=== PATIENT | male | born 1945 | race Caucasian/White ===

== ENCOUNTER → 2019-08-13 08:47 | Outpatient (BNVA) | payer MEDICARE, OTHER, SELFPAY | PROVIDERS: Family Provider Nurse Practitioner Family; PCP Family Medicine; Visit Provider Internal Medicine | DX: N18.3 Chronic kidney disease, stage 3 (moderate) (principal); D64.9 Anemia, unspecified; E79.0 Hyperuricemia without signs of inflammatory arthritis and tophaceous disease | CPT/HCPCS: 80048; 81003; 82310; 82728; 83540; 83550; 83735; 83970; 84100; 84550; 85018 ==

== ENCOUNTER → 2019-10-05 10:41 | Outpatient (BNVA) | payer MEDICARE, OTHER, SELFPAY | PROVIDERS: PCP Family Medicine; Visit Provider Family Medicine | DX: N52.9 Male erectile dysfunction, unspecified (principal); R41.3 Other amnesia | CPT/HCPCS: 82607; 84403; 84443 ==

== ENCOUNTER → 2019-10-13 13:26 | Outpatient (BNVA) | payer MEDICARE, OTHER, SELFPAY | PROVIDERS: PCP Family Medicine; Visit Provider Family Medicine | DX: E03.9 Hypothyroidism, unspecified (principal) | CPT/HCPCS: 84439; 84443 ==

== ENCOUNTER → 2020-03-16 12:14 | Outpatient (BNVA) | payer MEDICARE, OTHER, SELFPAY | PROVIDERS: PCP Family Medicine; Visit Provider Family Medicine | DX: E78.2 Mixed hyperlipidemia (principal); I10 Essential (primary) hypertension; F41.9 Anxiety disorder, unspecified | CPT/HCPCS: 80053; 80061 ==

== ENCOUNTER → 2020-03-29 08:00 | Outpatient (BNVA) | payer MEDICARE, OTHER, SELFPAY | PROVIDERS: PCP Family Medicine; Visit Provider Psychiatry & Neurology Neurology | DX: R41.3 Other amnesia (principal); G60.3 Idiopathic progressive neuropathy; I10 Essential (primary) hypertension; M54.2 Cervicalgia; Z79.899 Other long term (current) drug therapy | CPT/HCPCS: 80048; 80076; 82607; 82746; 83036; 84155; 84165; 84439; 84443 ==

== ENCOUNTER → 2020-06-06 08:59 | Outpatient (BNVA) | payer MEDICARE, OTHER, SELFPAY | PROVIDERS: PCP Family Medicine; Visit Provider Family Medicine | DX: I10 Essential (primary) hypertension (principal) | CPT/HCPCS: 80053; 80061; 85025 ==

== ENCOUNTER → 2020-08-16 11:12 | Outpatient (BNVA) | payer MEDICARE, OTHER, SELFPAY | PROVIDERS: PCP Family Medicine; Visit Provider Family Medicine | DX: E78.2 Mixed hyperlipidemia (principal); N18.30 Chronic kidney disease, stage 3 unspecified; D63.1 Anemia in chronic kidney disease; I12.9 Hypertensive chronic kidney disease with stage 1 through stage 4 chronic kidney disease, or unspecified chronic kidney disease | CPT/HCPCS: 80053; 80061; 81000; 82310; 82728; 83550; 83735; 83970; 84100; 84550; 85025 ==

== ENCOUNTER → 2020-11-17 09:56 | Outpatient (BNVA) | payer MEDICARE, OTHER, SELFPAY | PROVIDERS: PCP Family Medicine; Visit Provider Nurse Practitioner Family | DX: R05 Cough (principal); J43.9 Emphysema, unspecified | CPT/HCPCS: 71046; 80053; 85025 ==

== ENCOUNTER 2020-11-24 12:52 | Outpatient (CLI) | payer MEDICARE, OTHER, SELFPAY ==
[2020-11-24] MEDS: iodixanol 320 mg/mL 100mL Btl IV (13:21)
--- NOTE | 2020-11-24 13:30 | CT_ITS ---
WS: [id number] CT scan of the chest with IV contrast, additional two-dimensional coronal and sagittal reconstruction was performed. 11/24/2020 Clinical Data: R05 - Cough Comparison: Portable chest, 02/21/2016 DLP: 926.[address] scans at [facility] use at least one of these dose optimization techniques: automat ed exposure control; mA and/or kV adjustment per patient size (includes targeted exams where dose is matched to clinical indication); or iterative reconstruction. Findings: No nodules, masses or effusions are seen. The heart size is normal with no pericardial effusion. No p neumonia or pneumothorax is present. There is coronary artery calcification. The pulmonary arterial s ystem and thoracic aorta demonstrate no dilatations. There is minimal calcification in the wall of th e thoracic aorta. There is no axillary or significant mediastinal adenopathy. The thyroid gland shows normal enhancement. Midline sternotomy sutures are present. The upper abdomen demonstrates no abnormalities. The bones of the thorax are not remarkable. CT/CT chest w con* [id number] Impression: Negative CT scan of the chest with IV contrast.
== END 2020-11-24 12:53 | disposition home or self-care (01) ==
PROVIDERS: PCP Family Medicine; Visit Provider Nurse Practitioner Family
DX: R05 Cough (principal)
CPT/HCPCS: 71260; Q9967

== ENCOUNTER → 2020-12-22 11:59 | Outpatient (BNVA) | payer MEDICARE, OTHER, SELFPAY | PROVIDERS: PCP Family Medicine; Visit Provider Internal Medicine Critical Care Medicine | DX: J44.9 Chronic obstructive pulmonary disease, unspecified (principal); Z20.822 Contact with and (suspected) exposure to COVID-19 | CPT/HCPCS: 87635 ==

== ENCOUNTER 2020-12-27 09:17 | Outpatient (CLI) | payer MEDICARE, OTHER, SELFPAY ==
--- NOTE | 2020-12-27 12:59 | PFTS_ITS ---
Date of Study:12/27/20 Date of Dictation: MECHANICS: Forced vital capacity (FVC) is mildly reduced. Forced expiratory volume in one second (FEV1) is normal. FEV1/FVC is . FLOW VOLUME LOOP: Mild scooping. LUNG VOLUMES: Total lung capacity (TLC) is normal. Residual volume (RV) is increased. DIFFUSING CAPACITY FOR CARBON MONOXIDE: Moderately reduced. INTERPRETATION: The pulmonary function test is consistent with nonspecific ventilatory limitation. The postbronchodilator spirometry is consistent with minimal restriction. However, the total lung capacity is normal. The residual volume is elevated. The flow volume loop reveals mild scooping. The patient likely has small airways disease. Gas exchange (DLCO) is moderately reduced. MTDD
== END 2020-12-27 09:18 | disposition home or self-care (01) ==
LOC: RT 09:19
PROVIDERS: PCP Family Medicine; Visit Provider Internal Medicine Pulmonary Disease
DX: J44.9 Chronic obstructive pulmonary disease, unspecified (principal)
CPT/HCPCS: J7611

== ENCOUNTER → 2021-02-19 11:09 | Outpatient (BNVA) | payer MEDICARE, OTHER, SELFPAY | PROVIDERS: PCP Family Medicine; Visit Provider Internal Medicine | DX: N18.30 Chronic kidney disease, stage 3 unspecified (principal); D64.9 Anemia, unspecified; E79.0 Hyperuricemia without signs of inflammatory arthritis and tophaceous disease; I10 Essential (primary) hypertension; E78.2 Mixed hyperlipidemia | CPT/HCPCS: 80048; 81000; 82040; 82310; 82728; 83550; 83735; 83970; 84100; 84550; 85018 ==

== ENCOUNTER → 2021-05-21 12:27 | Outpatient (BNVA) | payer MEDICARE, OTHER, SELFPAY | PROVIDERS: PCP Family Medicine; Visit Provider Family Medicine | DX: J44.9 Chronic obstructive pulmonary disease, unspecified (principal); E55.9 Vitamin D deficiency, unspecified; E78.2 Mixed hyperlipidemia; G47.00 Insomnia, unspecified; I10 Essential (primary) hypertension | CPT/HCPCS: 80053; 80061; 82306; 84443; 85025 ==

== ENCOUNTER → 2021-05-28 09:40 | Outpatient (BNVA) | payer MEDICARE, OTHER, SELFPAY | PROVIDERS: PCP Family Medicine; Visit Provider Family Medicine | DX: R79.89 Other specified abnormal findings of blood chemistry (principal) | CPT/HCPCS: 84439; 84443; 84481 ==

== ENCOUNTER → 2021-06-21 14:48 | Outpatient (BNVA) | payer MEDICARE, OTHER, SELFPAY | PROVIDERS: PCP Family Medicine; Visit Provider Nurse Practitioner Family | DX: N30.10 Interstitial cystitis (chronic) without hematuria (principal) | CPT/HCPCS: 81003 ==

== ENCOUNTER 2021-07-16 15:37 | Inpatient (IN) | payer MEDICARE, OTHER, SELFPAY ==
[2021-07-16 15:39] VITALS: BP 128/98; PULSE 69; RESP 18; TEMP 38.7; O2SAT 95; BMI 28.3
--- NOTE | 2021-07-16 15:43 | XR_ITS ---
WS: [id number] Exam: XR chest 1V portable [id number] Date/Time of Exam: 07/16/2021 3:51 PM Reason For Exam: dyspnea Comparison 11/17/2020. The lungs are clear and fully expanded. Normal cardiomediastinal structures. Signs of previous CABG s urgery. Bony elements are intact. Extensive vascular calcifications in the right neck. XR/XR chest 1V portable [id number] IMPRESSION: 1. No acute cardiopulmonary finding.
--- NOTE | 2021-07-16 15:43 | ECG_ITS ---
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 Measurements Intervals [place] Rate: 67 P: 73 NV: 238 QRS: 91 QRSD: 116 T: -2 QT: 366 QTc: 388 Interpretive Statements SINUS RHYTHM WITH FIRST DEGREE AV BLOCK BORDERLINE RIGHT AXIS DEVIATION [QRS AXIS > 90] MODERATE INTRAVENTRICULAR CONDUCTION DELAY [110+ ms QRS DURATION] NONSPECIFIC T-WAVE ABNORMALITY Compared to ECG 03/27/2018 11:36:41 First degree AV block now present T-wave abnormality still present Electronically Signed On 07-16-2021 16:57:44 SET UP / OPERATOR by Mandeep Beal M.D. [email or web address] [email or web address] lake [email or web address]/store/[id number]
[2021-07-16] MEDS: sodium chloride 0.9% 500 ML IV (16:12)
[2021-07-16] MEDS: acetaminophen 500 mg Tablet 1000 MG PO (16:12)
--- NOTE | 2021-07-16 16:18 | PC.PHAR ---
PTS VERIFIED PTS MEDICATIONS
[2021-07-16 16:22] LABS: Basophils % 0.2 %; Eosinophils % 0.2 %; Hematocrit 31.4 % (42.0-52.0); Hemoglobin 10.8 g/dL (11.7-16.6); Lymphocytes # 1.5 10^3/uL (0.8-4.8); Lymphocytes % 15.9 %; Mean Corpuscular HGB Conc 34.4 g/dL (30.0-36.0); Mean Corpuscular Volume 98.7 fl (80-94); Mean Platelet Volume 10.6 fL (7.4-10.4); Monocytes # 1.8 10^3/uL (0.2-0.9); Neutrophils # 6.25 10^3/uL (1.8-7.7); Neutrophils % 64.4 %; Nucleated Red Blood Cells % 0 %; Platelet Count 182 10^3/cmm (130-400); Red Blood Count 3.18 10^6/uL (4.1-5.3); Red Cell Distribution Width 12.5 % (12.1-15.1); White Blood Count 9.7 10^3/uL (4.0-10.0)
[2021-07-16 16:51] LABS: Influenza A by IFA Negative (Negative); Influenza B by IFA Negative (Negative); SARS Covid-2 Antigen Negative (Negative)
[2021-07-16 16:51] LABS: Slide Review Slide Review Perform
--- NOTE | 2021-07-16 16:51 | ED_ITS ---
HPI - General Adult General: Chief complaint: Chest Pain Stated complaint: SOB Time Seen by Provider: 07/16/21 15:43 History of Present Illness: HPI narrative: Patient is a 75-year-old male with a history of CABG, BPH with LUTS, hypertension, hyperlipidemia who presents the emergency room for evaluation of back pain radiating towards the chest x1 day. Patient tells me that since , she has been having hacking cough, shortness of breath, and generalized body ache and malaise. Patient says that she has no abdominal pain, nausea vomiting, diaphoresis, exertional chest pain or shortness of breath. Earlier today, around 8 AM, patient has noticed back pain that radiates towards the chest and is concerned that he may be having heart attack. Patient went to the clinic for an evaluation was told to go to the emergency room because of fever. Patient was brought in by EMS. On arrival, patient reports that he is up-to-date with his Covid vaccines and has had his booster. Patient also reports that he has had the flu shot this year. Denies any diarrhea, melena hematochezia. No urinary complaints at this time. Onset:4 days ago Duration:ongoing Location:home Severity:moderate Review of Systems Narrative: Constitutional:+fever, no chills. +generalized weakness HEENT: No vision changes CV: +chest pain, no palpitations PULM: +cough, +dyspnea. GI: No abdominal pain, no N/V/D. : No dysuria MSKEL: No muscle pain SKIN: No new rashes, no lesions. NEURO: No headache, no focal weakness. HEME: No visible bruises PSYCH: Normal mood BACK: +back pain [facility] ED PFSH: Medical History (Updated 07/17/21 @ 08:47 by Fe Womack MD) Anxiety BPH w urinary obs/LUTS Chronic renal disease, stage 3, moderately decreased glomerular filtration rate (GFR) between 30-59 mL/min/1.73 square meter Chronic ulcerating interstitial cystitis COPD (chronic obstructive pulmonary disease) Coronary artery disease involving autologous vein coronary bypass graft without angina pectoris COVID-19 vaccine administered 2 doses plus booster Depression Erectile dysfunction Ex-smoker Gastro-esophageal reflux disease with esophagitis Glaucoma Hyperlipemia, mixed Hypertension Idiopathic progressive neuropathy Left carotid bruit Memory loss Myocardial infarct, old Obstructive sleep apnea Osteoarthritis Raynaud's disease Surgical History H/O vasectomy S/P angioplasty S/P coronary artery bypass graft x 2 S/P cystoscopy Family History Mother CAD (coronary artery disease) Father CAD (coronary artery disease) Sister CAD (coronary artery disease) Family/Other Hypertension Social History (Updated 07/16/21 @ 21:47 by Fe Womack MD) Smoking and tobacco status: former smoker Quit status (tobacco): has quit using tobacco Year quit tobacco: 1988 [id number] Second hand smoke exposure: No Alcohol intake: never Substance/Drug Use: never Lives independently: Yes Household members: spouse Housing: House Marital status: service: No Current occupational status: retired Pets and animals: No History of recent travel: No Current gender identity: Male Special evelyn needs: No Physical Exam Narrative: EXAM NARRATIVE: Head: Atraumatic Eyes: PERRL, conjunctiva without injection ENT: Mucous membrane moist NECK: Supple, ROM intact LUNGS: LCTAB, no crackles/rhonchi CV: RRR ABDOMEN: Soft, no focal TTP. NO guarding rebound, guarding, rigidity. No CVA tenderness to percussion. Neg Rouse/Neg McBurney's point tenderness, no suprabupic tenderness to palpation. EXTREMITY: Normal ROM SKIN: No rash or erythema NEURO: Awake and alert, no focal motor deficits PSYCH: Normal mood and affect Course Vital Signs: Vital signs: Vital Signs Temperature 102.8 F H 07/17/21 04:50 Pulse Rate 75 07/17/21 11:16 Respiratory Rate 18 07/17/21 11:16 Blood Pressure 140/60 07/17/21 03:06 Pulse Oximetry 93 07/17/21 11:16 MDM - General Adult MDM Narrative: Medical decision making narrative: Patient is a 75-year-old male with a history of CABG, hypertension, hyperlipidemia, BPH with LUTS presenting to the emergency room for evaluation of cough, shortness of breath, malaise, fever since 4 days ago. Exam, patient is noted to be febrile to 101.3 degrees. No focal lung findings. No signs of hypoxemia. Hemoglobin 10.8 today. X-ray not showing signs of any focal findings. Serial EKGs started to show MAYCO in 2/3/aVF with reciprocal depression in aVL Given significant EKG changes, ongoing chest pain, and troponin elevation - a STEMI alert was called at 6:34pm Case was emergently discussed with Dr. 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 Lab Data: Labs: Lab Results 07/16/21 07/16/21 07/16/21 15:45 15:45 16:09 WBC 9.7 10^3/uL 10^3/ uL (4.0-10.0) RBC 3.18 10^6/uL L 10 ^6/uL (4.1-5.3) Hgb 10.8 g/dL L g/dL (11.7-16.6) Hct 31.4 % L % (42.0-52.0) MCV 98.7 fl H fl (80-94) MCH 34.0 pg pg (28.0-34.0) MCHC 34.4 g/dL g/dL (30.0-36.0) RDW 12.5 % % (12.1-15.1) Plt Count 182 10^3/cmm 10^3 /cmm (130-400) MPV 10.6 fL H fL (7.4-10.4) Neut % (Auto) 64.4 % % Lymph % (Auto) 15.9 % % [place] % (Auto) 19.0 % % Eos % (Auto) 0.2 % % Baso % (Auto) 0.2 % % Neut # (Auto) 6.25 10^3/uL 10^3 /uL (1.8-7.7) Lymph # (Auto) 1.5 10^3/uL 10^3/ uL (0.8-4.8) [place] # (Auto) 1.8 10^3/uL H 10^ 3/uL (0.2-0.9) Eos # (Auto) 0.0 10^3/uL 10^3/ uL (0.0-0.8) Baso # (Auto) 0.0 10^3/uL 10^3/ uL (0.0-0.1) Nucleated RBC % (a uto) 0 % % Nucleated RBCs # 0.0 /100WBC /100W BC APTT Sodium Potassium Chloride Carbon Dioxide Anion Gap BUN Creatinine GFR Calculation Glucose Calculated Osmolal ity Calcium Troponin T Baselin e Troponin T 120 Min [place] Delta Troponin T NT-Pro-B Natriuret Pep Influenza Type A A g Negative (Negative) Influenza Type B A g Negative (Negative) SARS-CoV-2 Ag (Rap id) Negative (Negative) 07/16/21 07/16/21 07/16/21 16:09 16:09 16:09 WBC RBC Hgb Hct MCV MCH MCHC RDW Plt Count MPV Neut % (Auto) Lymph % (Auto) [place] % (Auto) Eos % (Auto) Baso % (Auto) Neut # (Auto) Lymph # (Auto) [place] # (Auto) Eos # (Auto) Baso # (Auto) Nucleated RBC % (a uto) Nucleated RBCs # APTT 26.0 SECONDS SECO NDS (23.9-36.7) Sodium 131 mmol/L L mmol /L (136-145) Potassium 4.7 mmol/L mmol/L (3.5-5.1) Chloride 96 mmol/L L mmol/ L (98-107) Carbon Dioxide 20 mmol/L L mmol/ L (22-29) Anion Gap 19.7 H (5-19) BUN 23 mg/dL mg/dL (8-23) Creatinine 1.5 mg/dL H mg/dL (0.7-1.2) GFR Calculation Not Reportable Glucose 93 mg/dL mg/dL (65-115) Calculated Osmolal ity 275 mOsm/kg L mOs m/kg (285-295) Calcium 7.8 mg/dL L mg/dL (8.5-10.5) Troponin T Baselin e 2698 ng/L H* ng/L (0-15) Troponin T 120 Min [place] Delta Troponin T NT-Pro-B Natriuret Pep 1548 pg/mL H pg/m L (0-450) Influenza Type A A g Influenza Type B A g SARS-CoV-2 Ag (Rap id) 07/16/21 17:58 WBC RBC Hgb Hct MCV MCH MCHC RDW Plt Count MPV Neut % (Auto) Lymph % (Auto) [place] % (Auto) Eos % (Auto) Baso % (Auto) Neut # (Auto) Lymph # (Auto) [place] # (Auto) Eos # (Auto) Baso # (Auto) Nucleated RBC % (a uto) Nucleated RBCs # APTT Sodium Potassium Chloride Carbon Dioxide Anion Gap BUN Creatinine GFR Calculation Glucose Calculated Osmolal ity Calcium Troponin T Baselin e Troponin T 120 Min [place] 2596 ng/L H ng/L (0-15) Delta Troponin T -102 ABS# L ABS# (0-10) NT-Pro-B Natriuret Pep Influenza Type A A g Influenza Type B A g SARS-CoV-2 Ag (Rap id) Imaging Data^: Other Imaging: Radiologist's impression: [address] [id number] ReportSigned Patient: Chris Thompson #: [id number]: 5Acct#:[id number]/Sex: 75 / MADM Date: 07/16/21Loc: ERRoom/Bed:Attending Dr: Ordering Provider/Ordering MD: Ria Guardado MD Date of Service: 07/16/21 Procedure(s): XR chest 1V portable [id number] Accession Number(s): [id number] Report Number: [id number] WS: [id number] Exam: XR chest 1V portable [id number] Date/Time of Exam: 07/16/2021 3:51 PM Reason For Exam: dyspnea Comparison 11/17/2020. The lungs are clear and fully expanded. Normal cardiomediastinal structures. Signs of previous CABG surgery. Bony elements are intact. Extensive vascular calcifications in the right neck. XR/XR chest 1V portable [id number] IMPRESSION: 1. No acute cardiopulmonary finding. Dictated By:Donnellyigned By:Mariah Javed Date/Time:07/16/21 1604DD/ 1603 Discharge Plan Discharge Patient Disposition: Admitted As Inpatient Admit Provider: Brittni Lopez Clinical Impression: Cough, Dyspnea, Anemia, ST elevation (STEMI) myocardial infarction Fever Qualifiers: Fever type: unspecified Qualified Code(s): R50.9 - Fever, unspecified Condition: Stable Coding Level of Care Code ED Medical Insurance Claims Specialist for Judson Da Silva
[2021-07-16 17:01] LABS: Blood Urea Nitrogen 23 mg/dL (8-23); Calcium 7.8 mg/dL (8.5-10.5); Carbon Dioxide 20 mmol/L (22-29); Chloride 96 mmol/L (98-107); Glucose 93 mg/dL (65-115); NT Pro B Type Natriuretic Pept 1548 pg/mL (0-450); Osmolality Calculated 275 mOsm/kg (285-295); Sodium 131 mmol/L (136-145)
[2021-07-16 17:05] LABS: Anion Gap 19.7 (5-19); Potassium 4.7 mmol/L (3.5-5.1)
[2021-07-16 17:07] LABS: Troponin(5th) Baseline 2698 ng/L (0-15)
[2021-07-16] MEDS: aspirin 325 mg Tablet PO (17:20)
[2021-07-16] MEDS: heparin 5,000 unit/mL INJ 1 mL 4000 UNIT IVP (17:21)
[2021-07-16] MEDS: heparin drip 25,000 UNIT/500 ML PREMIX 24.39 UNIT IV (17:27)
[2021-07-16 17:35] VITALS: BP 115/65; PULSE 63; RESP 17; TEMP 37.9; O2SAT 95
--- NOTE | 2021-07-16 17:43 | ECG_ITS ---
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1945 Requested By: Ria Guardado Order Number: [id number] Reading MD: MARTHA SELF Measurements Intervals [place] Rate: 58 P: 55 WI: 267 QRS: 57 QRSD: 117 T: 46 QT: 399 QTc: 394 Interpretive Statements SINUS BRADYCARDIA WITH FIRST DEGREE AV BLOCK LEFT VENTRICULAR HYPERTROPHY AND ST-T CHANGE [VOLTAGE CRITERIA PLUS ST/T ABNORMALITY] POSSIBLE SEPTAL MYOCARDIAL INFARCTION , PROBABLY OLD [30 ms Q WAVE IN V1/V2] Compared to ECG 07/16/2021 15:49:51 Left ventricular hypertrophy now present ST (T wave) deviation now present Myocardial infarct finding now present Sinus rhythm no longer present Intraventricular conduction delay no longer present T-wave abnormality no longer present Electronically Signed On 07-17-2021 20:12:26 PROTOCOL MANAGER by MARTHA SELF [id number]
--- NOTE | 2021-07-16 17:50 | PM.HP ---
Providers/Chief Complaint Primary Care Provider: Luzmaria Andrea MD Chief Complaint: SOB History of Present Illness Chris Thompson is a 75 year old male Medications/Allergies Home Medications Medication Instructions Recorded Confirmed Last Taken Type ketoconazole 2 % topical cream 1 applic TOPICAL PRN 08/06/19 07/16/21 Unknown History albuterol sulfate 90 mcg/actuation 2 puff INHALATION Q6H PRN #8.5 g 05/21/21 07/16/21 Unknown Rx aerosol inhaler amlodipine 5 mg tablet 5 mg PO BID #180 tab 05/21/21 07/16/21 07/16/21 09:00 Rx furosemide 20 mg tablet 10 mg PO QAM #45 tab 05/21/21 07/16/21 07/16/21 Rx isosorbide mononitrate 30 mg 30 mg PO BID #180 tab 05/21/21 07/16/21 07/16/21 09:00 Rx tablet,extended release 24 hr Adult Low Dose Aspirin 81 mg PO QAM 07/16/21 07/16/21 07/16/21 History Allergy Relief (fluticasone) 2 spray INTRANASAL QAM 07/16/21 07/16/21 07/16/21 History Miralax 17 g PO QAM 07/16/21 07/16/21 07/16/21 History Prevacid 30 mg PO QPM 07/16/21 07/16/21 07/15/21 History Zyrtec 10 mg PO QAM 07/16/21 07/16/21 07/16/21 History cholecalciferol (vitamin D3) 1,000 unit PO QAM 07/16/21 07/16/21 07/16/21 History clonazepam 1 mg PO DAILY 07/16/21 07/16/21 Unknown History clopidogrel 75 mg PO QAM 07/16/21 07/16/21 07/16/21 History donepezil 10 mg PO QPM 07/16/21 07/16/21 07/15/21 History finasteride 5 mg PO QPM 07/16/21 07/16/21 07/15/21 History losartan 25 mg PO QAM 07/16/21 07/16/21 07/16/21 09:00 History magnesium 250 mg PO DAILY 07/16/21 07/16/21 Unknown History mecobalamin (vitamin B12) 1,000 mcg SUBLINGUAL QAM 07/16/21 07/16/21 07/16/21 History montelukast 10 mg PO QAM 07/16/21 07/16/21 07/16/21 History potassium gluconate 595 mg PO QAM 07/16/21 07/16/21 07/16/21 History rosuvastatin 10 mg PO QPM 07/16/21 07/16/21 07/15/21 History trazodone 150 mg PO BEDTIME 07/16/21 07/16/21 07/15/21 History Allergies Allergy/AdvReac Type Severity Reaction Status Date / Time No Known Allergies Allergy Verified 07/16/21 16:05 PFSH Acute PFSH: Medical History (Updated 07/16/21 @ 17:23 by Ria Guardado MD) Anxiety BPH w urinary obs/LUTS Chronic renal disease, stage 3, moderately decreased glomerular filtration rate (GFR) between 30-59 mL/min/1.73 square meter Chronic ulcerating interstitial cystitis Coronary artery disease involving autologous vein coronary bypass graft without angina pectoris Depression Erectile dysfunction Gastro-esophageal reflux disease with esophagitis Glaucoma Hyperlipemia, mixed Hypertension Idiopathic progressive neuropathy Left carotid bruit Memory loss Myocardial infarct, old Obstructive sleep apnea Osteoarthritis Raynaud's disease Surgical History H/O vasectomy S/P angioplasty S/P coronary artery bypass graft x 2 S/P cystoscopy Family History Mother CAD (coronary artery disease) Father CAD (coronary artery disease) Sister CAD (coronary artery disease) Family/Other Hypertension Social History Smoking and tobacco status: former smoker Quit status (tobacco): has quit using tobacco Year quit tobacco: 1988 [id number] Second hand smoke exposure: No Smoking risk assessment/counseling performed?: Yes Alcohol intake: never Lives independently: Yes Household members: spouse Housing: House Marital status: service: No Current occupational status: retired Pets and animals: No History of recent travel: No Current gender identity: Male Special evelyn needs: No Vitals/I&O/Wt Last Vital Signs Temp 100.2 F H 07/16/21 17:35 Pulse 63 07/16/21 17:35 Resp 17 07/16/21 17:35 BP 115/65 07/16/21 17:35 Pulse Ox 95 07/16/21 17:35 Weight last 48 hrs Weight 87.09 kg Data : 07/16/21 16:09 07/16/21 16:09 Coding Level of Care Code Acute Crop Supervisor for Judson Da Silva
--- NOTE | 2021-07-16 18:38 | P.CONIM_ITS ---
Providers/Reason For Consult Consulting Physician/Specialty*: Cardiology Reason for Consult*: Non-ST elevation MO Primary Care Provider: Luzmaria Andrea MD History of Present Illness History of Present Illness 69-year-old male presented with chest pain and non-ST elevation MO, his past medical history (RM to LAD, SVG to RCA ) 1998 this is as per patient no record available to me followed by multiple intervention none none vessels no record available to us since patient follows up with Dr. Siddiqui at outside hospital. According the patient for the past few days he was having cough at the same time he felt to be feverish however since this morning he was having off-and-on back pain and sometimes chest pain when pain became more consistent he decided to come to the ER. Multiple EKGs were performed third EKG was suggestive of mild ST elevation not completely meet the criteria for ST elevation MO was noted. Troponin was noted to be around 2000. Patient was taken to the [facility] due to recurrent chest pain and dynamic EKG changes. He was noted to have patent circumflex 50% distal left main and RM to LAD was patent SVG to RCA which most likely is a culprit is diffusely diseased atretic and occluded in the proximal segment, no SVG to circumflex visualized. Medical management was suggested. Currently patient is chest pain-free. Rapid Covid was negative. Review of Systems Const: Reports: fever(s), chills, body aches, fatigue and malaise; Denies: change in weight Eyes: Denies: change in vision ENMT: Reports: nasal congestion and other (No loss of taste or smell); Denies: throat pain Card: Reports: chest pain and dyspnea on exertion; Denies: palpitations or edema Resp: Reports: dyspnea, productive cough, non-productive cough and wheezing; Denies: pain on inspiration or hemoptysis GI: Denies: abdominal pain, nausea, vomiting, diarrhea, constipation, hematochezia or melena : Denies: hematuria Musc: Reports: back pain (chest pain radiates into back) and muscle weakness; Denies: neck pain, joint swelling or joint redness Skin/Breast: Denies: rash, pruritus or sores Neuro: Reports: difficulty walking (due to general weakness, not focal weakness) and confusion; Denies: headache(s) or numbness in extremities Psych: Reports: anxiety and memory loss; Denies: depression Mickey/Lymph: Denies: easy bruising or easy bleeding Meds/Allergies Home Medications and Allergies Home Medications Medication Instructions Recorded Confirmed Last Taken Type ketoconazole 2 % topical cream 1 applic TOPICAL PRN 08/06/19 07/16/21 Unknown History albuterol sulfate 90 mcg/actuation 2 puff INHALATION Q6H PRN #8.5 g 05/21/21 07/16/21 Unknown Rx aerosol inhaler amlodipine 5 mg tablet 5 mg PO BID #180 tab 05/21/21 07/16/21 07/16/21 09:00 Rx furosemide 20 mg tablet 10 mg PO QAM #45 tab 05/21/21 07/16/21 07/16/21 Rx isosorbide mononitrate 30 mg 30 mg PO BID #180 tab 05/21/21 07/16/21 07/16/21 09:00 Rx tablet,extended release 24 hr Adult Low Dose Aspirin 81 mg PO QAM 07/16/21 07/16/21 07/16/21 History Allergy Relief (fluticasone) 2 spray INTRANASAL QAM 07/16/21 07/16/21 07/16/21 History Miralax 17 g PO QAM 07/16/21 07/16/21 07/16/21 History Prevacid 30 mg PO QPM 07/16/21 07/16/21 07/15/21 History Zyrtec 10 mg PO QAM 07/16/21 07/16/21 07/16/21 History cholecalciferol (vitamin D3) 1,000 unit PO QAM 07/16/21 07/16/21 07/16/21 History clonazepam 1 mg PO DAILY 07/16/21 07/16/21 Unknown History clopidogrel 75 mg PO QAM 07/16/21 07/16/21 07/16/21 History donepezil 10 mg PO QPM 07/16/21 07/16/21 07/15/21 History finasteride 5 mg PO QPM 07/16/21 07/16/21 07/15/21 History losartan 25 mg PO QAM 07/16/21 07/16/21 07/16/21 09:00 History magnesium 250 mg PO DAILY 07/16/21 07/16/21 Unknown History mecobalamin (vitamin B12) 1,000 mcg SUBLINGUAL QAM 07/16/21 07/16/21 07/16/21 History montelukast 10 mg PO QAM 07/16/21 07/16/21 07/16/21 History potassium gluconate 595 mg PO QAM 07/16/21 07/16/21 07/16/21 History rosuvastatin 10 mg PO QPM 07/16/21 07/16/21 07/15/21 History trazodone 150 mg PO BEDTIME 07/16/21 07/16/21 07/15/21 History Allergies Allergy/AdvReac Type Severity Reaction Status Date / Time No Known Allergies Allergy Verified 07/16/21 16:05 Current Medications Current Medications Generic Name Dose Route Start Last Admin Trade Name Freq PRN Reason Stop Dose Admin Heparin Sodium/Sodium Chloride 25,000 unit in 500 mls @ 0 mls/hr 07/16/21 17:15 07/16/21 17:27 Heparin Drip IV 14 unit/kg/hr .Q0M ROSEMARY 24.39 mls/hr Administration Protocol Per Protocol Additional Medication Information I personally reviewed home medication list and medications received day of admission thus far. PFSH Acute PFSH: Medical History (Updated 07/17/21 @ 08:47 by Fe Womack MD) Anxiety BPH w urinary obs/LUTS Chronic renal disease, stage 3, moderately decreased glomerular filtration rate (GFR) between 30-59 mL/min/1.73 square meter Chronic ulcerating interstitial cystitis COPD (chronic obstructive pulmonary disease) Coronary artery disease involving autologous vein coronary bypass graft without angina pectoris COVID-19 vaccine administered 2 doses plus booster Depression Erectile dysfunction Ex-smoker Gastro-esophageal reflux disease with esophagitis Glaucoma Hyperlipemia, mixed Hypertension Idiopathic progressive neuropathy Left carotid bruit Memory loss Myocardial infarct, old Obstructive sleep apnea Osteoarthritis Raynaud's disease Surgical History H/O vasectomy S/P angioplasty S/P coronary artery bypass graft x 2 S/P cystoscopy Family History Mother CAD (coronary artery disease) Father CAD (coronary artery disease) Sister CAD (coronary artery disease) Family/Other Hypertension Social History (Updated 07/16/21 @ 21:47 by Fe Womack MD) Smoking and tobacco status: former smoker Quit status (tobacco): has quit using tobacco Year quit tobacco: 1988 1ppdx 45yrs Second hand smoke exposure: No Alcohol intake: never Substance/Drug Use: never Lives independently: Yes Household members: spouse Housing: House Marital status: service: No Current occupational status: retired Pets and animals: No History of recent travel: No Current gender identity: Male Special evelyn needs: No Dietary Habits: Current diet type/program: regular Caffeine: Yes Vitals/I&O/Wt Last Vital Signs Temp 100.2 F H 07/16/21 17:35 Pulse 63 07/16/21 17:35 Resp 17 07/16/21 17:35 BP 115/65 07/16/21 17:35 Pulse Ox 95 07/16/21 17:35 Weight last 48 hrs Weight 192 lb Physical Exam Narrative: EXAM NARRATIVE: GENERAL: Patient is alert, awake and oriented x3. NECK: No jugular vein distension. HEENT: No cyanosis. No icterus. No pallor. HEART: Regular S1 and S2. No murmur, rub or gallop. LUNGS: Clear to auscultate bilaterally. ABDOMEN: Soft, nontender and nondistended. Positive bowel sounds. No guarding, rebound or tenderness. CENTRAL NERVOUS SYSTEM: Grossly nonfocal. EXTREMITIES: Lower extremities without edema bilaterally. A&P Assessment and plan (1) Acute coronary syndrome: Patient presenting with acute coronary syndrome most likely unstable non- ST elevation MO he has recurrent chest pain with mild dynamic ST changes we would therefore proceed with left heart cath and intervention if indicated. Patient has been loaded with Plavix aspirin. Further plan will advise as per progress of the patient Status: Acute (2) Fever: could be respiratory tract infection, treatment as per medicine Status: Acute Qualifiers: Fever type: unspecified Qualified Code(s): R50.9 - Fever, unspecified (3) Chronic kidney disease (CKD) stage G3a/A1, moderately decreased glomerular filtration rate (GFR) between 45-59 mL/min/1.73 square meter and albuminuria creatinine ratio less than 30 mg/g: Patient has been explained risk for contrast-induced nephropathy, plan to continue IV fluid Status: Chronic Consult Attestations Medical Necessity Statement: Expecting his stay to cross more than 2 midnight Coding Level of Care Code New Pt Acute Account Representative for g Fwd Patient Type New History Detailed Exam Detailed Medical Decision Making Moderate Complexity Diagnoses Acute coronary syndrome I24.9 Fever R50.9 Fever type: unspecified Chronic kidney disease (CKD) stage G3a/A1, moderately decreased glomerular filtration rate (GFR) between 45-59 mL/min/1.73 square meter and albuminuria creatinine ratio less than 30 mg/g N18.31
[2021-07-16 18:41] LABS: Troponin 5 2HR 2596 ng/L (0-15); Troponin 5 2HR Delta -102 ABS# (0-10)
[2021-07-16 18:51] VITALS: BP 104/62; PULSE 60; RESP 18; O2SAT 94
--- NOTE | 2021-07-16 19:01 | XACV_ITS ---
Ht: 178 cm Wt: 87 kg BSA: 2.09 m2 Gender: Male : 1945 Any Known Allergies: No known allergies Exam Priority: Routine Indication(s): - Acute inferior TN Procedure(s): Procedure Description: Diagnostic procedure Procedure Description: Miscellaneous Procedure Description: Perclose Procedure Description: Coronary Angiography John DAWSON; Diagnostic Cath Status: Emergency Diagnostic Findings * Left Main has no disease. * Proximal Left Anterior Descending to Mid Left Anterior Descending: total occlusion, MARIBEL: 0 flow. * Left Internal Mammary Artery to Mid Left Anterior Descending graft: patent. * Proximal Right Coronary Artery to Distal Right Coronary Artery: total occlusion, MARIBEL: 0 flow. * Proximal Circumflex: moderate 50% stenosis, MARIBEL: 3 flow. * Ascending Aorta to Right Posterior AV graft: total occlusion, MARIBEL: 0 flow. * Two grafts visualized. * Coronary angiography shows right dominance. Conclusions 1. Patient presented with non-ST elevation TN he was noted to have occluded SVG to RCA which is the culprit. He has chronically occluded LAD which is supplied by patent RM. No SVG to circumflex was found. No prior report surgical or cath available to us. Since there was no markers and we were not able to find SVG to circumflex it was thought patient only had 2 graft. Medical management was advised since [place] vessel is highly calcified chronically occluded RCA not amenable to intervention.. 2. There is total occlusion coronary artery disease with three vessel disease. 3. Two coronary grafts visualized: one graft patent, and one graft occluded. Recommendations * Continue current medical management and risk factor modification. Interventional RX Recommendation: medical therapy and/or counseling Diagnostic RX Recommendation: medical therapy and/or counseling Clinical Evaluation EBL: 5mL-10mL Procedural Details Pre-Procedure Time Out. Identified patient by full name and date of as verbalized by the patient/guarantor. Does the consent match the physician's order: N/A Emergent; Informed Consent not obtained due to time critical life threat. Accurate & Complete Informed Consent: N/A Emergent; Informed Consent not obtained due to time critical life threat. Inpatient/Outpatient History & Physical on Chart: N/A Emergent; Informed Consent not obtained due to time critical life threat. If H&P is completed, is and addenduem needed: N/A Emergent; Informed Consent not obtained due to time critical life threat; If yes, is the addendum complete: N/A Emergent; Informed Consent not obtained due to time critical life threat. Visualize and Verify Site with Patient/Guarantor: N/A. Relevant Radiology Images available: N/A Emergent; Informed Consent not obtained due to time critical life threat. Pre-op teaching completed and patient verbalized understanding. The risks, benefits, and alternatives of sedation and/or procedure were discussed by physician. The patient agrees to continue. Procedure started. [facility] Clinical Fraility Score: 4: Vulnerable. 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 Chest Pain Symptom Assessment: Typical Angina Symptoms. Cardiovascular Instability: No. Stable. Correct patient, site and procedure confirmed by cath team. Current diagnosis: STEMI. PERRLA. 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 Lungs clear x 5 lobes. IV Site on Arrival: 20 gauge in the right hand. Pre Procedural Pulses: bilateral radial was 3+. Pre Procedural Pulses: bilateral posterior tibial was 3+. Pre Procedural Pulses: bilateral posterior tibial was 3+. Oxygen started at 3liters/min via nasal canula. bilateral groins was prepped with chloroprep then draped in the usual sterile fashion. Baseline sample Acquired. HR: 57 BPM. Physician notified. Baseline sample Acquired. HR: 57 BPM. Physician arrived. Equipment: 6F - Femoral. Equipment: 5F - Femoral. Kit, Micropuncture. Cardiac Cath Pack. Heparinized Saline (2 units/mL), 1000 mL bag. ACIST Manifold Kit Model BT 2000. Inventory is JJ 5F 11cm [place]isl[place] Plus Sheath. Physician scrubbed in. Immediate Pre-Procedure Time Out. Correct Patient: Yes; Correct Procedure: Yes; Correct Site: Yes; Correct Patient Position: Yes; Correct Supplies: Yes; Dried Flammable Prep: Yes; Blood Products Available: N/A;. Lidocaine 1% infiltrated to the right groin. Arterial access obtained with micropuncture set. A CRD 5F JL4 Diagnostic Catheter was advanced over the wire and used for Left coronary angiography. Multiple views taken of left coronary artery. Catheter removed over the standard wire. A CRD 5F JR4 Diagnostic Catheter was advanced over the wire and used for Right coronary angiography. Multiple views taken of right coronary artery. JR 4 redirected to vein grafts. SVG to RCA occluded. RM to LAD visualized. Physician review of films. Catheter removed over the wire. A Right femoral angiogram was performed to determine safe placement of closure device. Current Diagnosis : STEMI. A Perclose (pinion-pins) was successful obtaining hemostatsis at the Right Femoral artery insertion site. lot number [id number] exp 05-10-23. Perclose placed without complications. No signs or symptoms of hematoma noted. Sterile dressing applied per usual sterile fashion. Post Procedure: Pulses reassessed and unchanged. PERRLA. 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 No VTE prophylaxis required. Fluoro: 8:01. Contrast type used: Omnipaque 300 mg/mL, 150 mL bottle. [id number]. Post-op diagnosis: Nonstemi; occluded SVG to RCA. Estimated blood loss: 5mL-10mL. Responsiveness - Normal response to verbal stimuli; alert and oriented, PERRLA. Airway - Unaffected, no intervention required; spontaneous ventilation. Circulation: W/N/L, pulses unchanged. Nausea/Vomiting: No. Physician scrubbed out. Procedure completed. Medication's Wasted: Heparin = 1000 units. Total IV fluids: 49.2 mL. Complications: none. Patient transferred by bed to 1st floor. Vital chart was stopped. Vital chart was stopped. Access Site Site: Right Femoral artery Sheath Size: 6 Fr Hemostasis Method: Perclose (pinion-pins) Hemostasis Success: Successful Procedure Medications Start: 7:23 PM Stop: 7:23 PM Medication: Plavix Amount: 600 mg Route: P.O. Start: 7:24 PM Stop: 7:24 PM Medication: Versed Amount: 1 mg Route: I.V. Start: 7:25 PM Stop: 7:25 PM Medication: Fentanyl Amount: 50 mcg Route: I.V. Start: 7:41 PM Stop: 7:41 PM Medication: Versed Amount: 1 mg Route: I.V. Start: 7:41 PM Stop: 7:41 PM Medication: Fentanyl Amount: 50 mcg Route: I.V. I, the attending physician, have reviewed and verified all procedure medications. Yes, all medications given per verbal order Report Signatures Finalized by Brittni Lopez MD on 07/29/2021 07:06 PM
[2021-07-16 20:09] VITALS: BP 111/71; PULSE 84; RESP 14; TEMP 36.6; O2SAT 93
[2021-07-16 21:06] VITALS: PULSE 65; RESP 17; O2SAT 94
--- NOTE | 2021-07-16 21:41 | PM.HP ---
Providers/Chief Complaint Admitting Physician: Fe Womack MD Primary Care Provider: Luzmaria nAdrea MD Chief Complaint: SOB History of Present Illness Chris Thompson is a 75 year old male who presented to the emergency room with chief complaint of chest pain. Pain is located in the center of his chest and radiated into his back. Described as severe. He has a history of coronary artery disease with prior bypass surgery as well as prior percutaneous interventions. He has not felt well for several days with fever off and on for the last 4 to 5 days. Fever has been as high as 103. He has had his flu shot, 2 regular COVID shots in 1 COVID booster recently. No known sick contacts. His with whom he lives has not been ill. He has had cough, congestion general malaise and aches and pains. He has been short of breath. Cough has been productive of some sputum without any blood noted. No pleuritic type pain. Work-up in the emergency room revealed significant troponin elevation greater than 2000, to a peak of 2698. EKGs eventually demonstrated findings concerning for early ST elevation and he went cardiac catheterization this evening. By verbal report from the staff no abnormalities were identified necessitating immediate intervention. I do not have the official report at this time. With the fever patient has been admitted to the hospitalist service for further evaluation and care. Review of Systems Const: Reports: fever(s), chills, body aches, fatigue and malaise; Denies: change in weight Eyes: Denies: change in vision ENMT: Reports: nasal congestion and other (No loss of taste or smell); Denies: throat pain Card: Reports: chest pain and dyspnea on exertion; Denies: palpitations or edema Resp: Reports: dyspnea, productive cough, non-productive cough and wheezing; Denies: pain on inspiration or hemoptysis GI: Denies: abdominal pain, nausea, vomiting, diarrhea, constipation, hematochezia or melena : Denies: hematuria Musc: Reports: back pain (chest pain radiates into back) and muscle weakness; Denies: neck pain, joint swelling or joint redness Skin/Breast: Denies: rash, pruritus or sores Neuro: Reports: difficulty walking (due to general weakness, not focal weakness) and confusion; Denies: headache(s) or numbness in extremities Psych: Reports: anxiety and memory loss; Denies: depression Mickey/Lymph: Denies: easy bruising or easy bleeding Medications/Allergies Home Medications Medication Instructions Recorded Confirmed Last Taken Type ketoconazole 2 % topical cream 1 applic TOPICAL PRN 08/06/19 07/16/21 Unknown History albuterol sulfate 90 mcg/actuation 2 puff INHALATION Q6H PRN #8.5 g 05/21/21 07/16/21 Unknown Rx aerosol inhaler amlodipine 5 mg tablet 5 mg PO BID #180 tab 05/21/21 07/16/21 07/16/21 09:00 Rx furosemide 20 mg tablet 10 mg PO QAM #45 tab 05/21/21 07/16/21 07/16/21 Rx isosorbide mononitrate 30 mg 30 mg PO BID #180 tab 05/21/21 07/16/21 07/16/21 09:00 Rx tablet,extended release 24 hr Adult Low Dose Aspirin 81 mg PO QAM 07/16/21 07/16/21 07/16/21 History Allergy Relief (fluticasone) 2 spray INTRANASAL QAM 07/16/21 07/16/21 07/16/21 History Miralax 17 g PO QAM 07/16/21 07/16/21 07/16/21 History Prevacid 30 mg PO QPM 07/16/21 07/16/21 07/15/21 History Zyrtec 10 mg PO QAM 07/16/21 07/16/21 07/16/21 History cholecalciferol (vitamin D3) 1,000 unit PO QAM 07/16/21 07/16/21 07/16/21 History clonazepam 1 mg PO DAILY 07/16/21 07/16/21 Unknown History clopidogrel 75 mg PO QAM 07/16/21 07/16/21 07/16/21 History donepezil 10 mg PO QPM 07/16/21 07/16/21 07/15/21 History finasteride 5 mg PO QPM 07/16/21 07/16/21 07/15/21 History losartan 25 mg PO QAM 07/16/21 07/16/21 07/16/21 09:00 History magnesium 250 mg PO DAILY 07/16/21 07/16/21 Unknown History mecobalamin (vitamin B12) 1,000 mcg SUBLINGUAL QAM 07/16/21 07/16/21 07/16/21 History montelukast 10 mg PO QAM 07/16/21 07/16/21 07/16/21 History potassium gluconate 595 mg PO QAM 07/16/21 07/16/21 07/16/21 History rosuvastatin 10 mg PO QPM 07/16/21 07/16/21 07/15/21 History trazodone 150 mg PO BEDTIME 07/16/21 07/16/21 07/15/21 History Allergies Allergy/AdvReac Type Severity Reaction Status Date / Time No Known Allergies Allergy Verified 07/16/21 16:05 PFSH Acute PFSH: Medical History (Updated 07/17/21 @ 08:47 by Fe Womack MD) Anxiety BPH w urinary obs/LUTS Chronic renal disease, stage 3, moderately decreased glomerular filtration rate (GFR) between 30-59 mL/min/1.73 square meter Chronic ulcerating interstitial cystitis COPD (chronic obstructive pulmonary disease) Coronary artery disease involving autologous vein coronary bypass graft without angina pectoris COVID-19 vaccine administered 2 doses plus booster Depression Erectile dysfunction Ex-smoker Gastro-esophageal reflux disease with esophagitis Glaucoma Hyperlipemia, mixed Hypertension Idiopathic progressive neuropathy Left carotid bruit Memory loss Myocardial infarct, old Obstructive sleep apnea Osteoarthritis Raynaud's disease Surgical History H/O vasectomy S/P angioplasty S/P coronary artery bypass graft x 2 S/P cystoscopy Family History Mother CAD (coronary artery disease) Father CAD (coronary artery disease) Sister CAD (coronary artery disease) Family/Other Hypertension Social History (Updated 07/16/21 @ 21:47 by Fe Womack MD) Smoking and tobacco status: former smoker Quit status (tobacco): has quit using tobacco Year quit tobacco: 1988 [id number] Second hand smoke exposure: No Alcohol intake: never Substance/Drug Use: never Lives independently: Yes Household members: spouse Housing: House Marital status: service: No Current occupational status: retired Pets and animals: No History of recent travel: No Current gender identity: Male Special evelyn needs: No Vitals/I&O/Wt Last Vital Signs Temp 100.2 F H 12/06/21 17:35 Pulse 65 07/16/21 21:06 Resp 17 07/16/21 21:06 BP 104/62 07/16/21 18:51 Pulse Ox 94 07/16/21 21:06 Weight last 48 hrs Weight 87.09 kg Physical Exam Narrative: EXAM NARRATIVE: Constitutional: Awake and alert, acutely and chronically ill-appearing, oriented x3 HEENT: Normocephalic, atraumatic, extraocular movements are intact, nasopharynx with some clear rhinorrhea, oropharynx with dry mucous membranes, no lesions noted Neck: Supple with good range of motion, no lymphadenopathy Respiratory: Auscultation bilaterally without any rales or rhonchi noted, scattered wheezes that improved with cough Cardiovascular: Regular rhythm, no murmurs, no chest wall tenderness Abdomen: Soft, nontender, positive bowel sounds Extremities: No pitting edema Skin: Dry, scattered minor sores, no large bruises, pale Neuro: Speech clear, face symmetric, handgrip equal, gait not assessed, fair short-term recall during examination Psych: Normal affect Data : 07/17/21 03:16 07/17/21 03:16 Other Labs: Laboratory Tests 07/16/21 07/16/21 07/16/21 15:45 15:45 16:09 Troponin T Baseline 2698 H* Troponin T 120 Minute Delta Troponin T Influenza Type A Ag Negative Influenza Type B Ag Negative SARS-CoV-2 Ag (Rapid) Negative 07/16/21 17:58 Troponin T Baseline Troponin T 120 Minute 2596 H Delta Troponin T -102 L Influenza Type A Ag Influenza Type B Ag SARS-CoV-2 Ag (Rapid) CXR: Radiologist's impression: Exam: XR chest 1V portable [id number] Date/Time of Exam: 07/16/2021 3:51 PM Reason For Exam: dyspnea Comparison 11/17/2020. The lungs are clear and fully expanded. Normal cardiomediastinal structures. Signs of previous CABG surgery. Bony elements are intact. Extensive vascular calcifications in the right neck. XR/XR chest 1V portable [id number] IMPRESSION: 1. No acute cardiopulmonary finding. A&P Assessment and plan (1) Chest pain: Precordial throughout the chest and radiating into the back in a patient with a history of coronary artery disease, prior percutaneous interventions as well as prior bypass surgery Status: Acute Qualifiers: Chest pain type: precordial pain Qualified Code(s): R07.2 - Precordial pain (2) Acute coronary syndrome: With significant elevation in troponin and nonspecific EKG changes for which patient was taken to cardiac Water Resource Consultant. No obstructive lesions requiring intervention were identified according to available information. Status: Acute (3) Fever: For several days, T-max around 103. Has had respiratory symptoms predominantly of cough productive of some sputum, runny nose. Chest x-ray in the emergency room unremarkable. Influenza screening and rapid Covid antigen were negative but Covid PCR is pending. He is fully vaccinated and with booster shot. has not been sick. Also within the differential for persistent fever is other viral infections, occult bacterial infection, thrombotic process, medication effect, others Status: Acute Qualifiers: Fever type: unspecified Qualified Code(s): R50.9 - Fever, unspecified (4) Macrocytic anemia: With recent drop in hemoglobin from prior baseline, no gross bleeding noted or reported Status: Acute (5) COPD (chronic obstructive pulmonary disease): With report of recent cough suggestive of possible acute on chronic process Status: Chronic Qualifiers: COPD type: chronic bronchitis Chronic bronchitis type: unspecified Qualified Code(s): J42 - Unspecified chronic bronchitis (6) Chronic kidney disease (CKD) stage G3a/A1, moderately decreased glomerular filtration rate (GFR) between 45-59 mL/min/1.73 square meter and albuminuria creatinine ratio less than 30 mg/g: Near baseline functioning Status: Chronic (7) Memory loss: Chronic, mild Status: Chronic (8) Idiopathic progressive neuropathy: Status: Chronic Additional A&P Information Inpatient admission Continue aspirin, Plavix, isosorbide and statin therapy Continue treatment dose Lovenox for now Add low-dose beta-blockade Hold home amlodipine Continue home losartan Rapid Covid was negative as well as influenza screening, Covid PCR is pending Check urinalysis Check blood cultures Check lactic acid Check inflammatory markers occluding CRP, procalcitonin, ferritin and fibrinogen along with lactic acid and LDH Check TSH and free T4, values were elevated several months ago though consistent with sick euthyroid Recheck troponin in the morning Echocardiogram Albuterol inhaler as needed Oxygen therapy as needed Other home medications as ordered including magnesium, potassium, Zyrtec, vitamin D, vitamin B, Aricept, finasteride, Flonase, Singulair and PPI Decreased rate of IV fluids Monitor renal function for changes Treatment dose Lovenox covers appropriate VTE prophylaxis Supportive care otherwise Findings, concerns and plans were discussed with patient and he was given an opportunity to ask questions. He is able to provide history and some contexts but is confused at times and forgetful of details at others anticipate discharge home with when medically stable Full code Attestations Medical Necessity Statement*: Anticipated stay greater than two midnights in gentleman with comorbid conditions as noted presenting with chest pain, respiratory symptoms and fever. He had a significantly elevated troponin at presentation with some nonspecific EKG findings that evolved to show a potential concern for ST elevation. He underwent emergent cardiac catheterization without any unavailable lesions identified from report. He has nevertheless continued to have fever. Current concerns and plans are as noted above. 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
--- NOTE | 2021-07-16 21:43 | ECG_ITS ---
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: : 1945 Requested By: Ria Guardado Order Number: [id number] Reading MD: MARTHA SELF Measurements Intervals [place] Rate: 57 P: 44 MO: 272 QRS: 35 QRSD: 122 T: 46 QT: 413 QTc: 404 Interpretive Statements SINUS BRADYCARDIA WITH FIRST DEGREE AV BLOCK INFERIOR MYOCARDIAL INFARCTION , OF INDETERMINATE AGE [40+ ms Q WAVE AND/OR ST/T ABNORMALITY IN II/aVF] Compared to ECG 07/16/2021 17:46:49 Left ventricular hypertrophy no longer present ST (T wave) deviation no longer present Myocardial infarct finding still present Electronically Signed On 07-17-2021 20:12:16 EDUCATION DEPARTMENT REGISTRAR by MARTHA SELF [email or web address] hospitalRad[id number]
[2021-07-16 22:00] VITALS: PULSE 79
[2021-07-16] MEDS: sodium chloride 0.9% 1,000 ML 100 ML IV (22:04)
[2021-07-16] MEDS: trazodone 150 mg Tablet PO (22:05)
[2021-07-16 22:47] LABS: Troponin 5 6HR 2132 ng/L (0-15)
[2021-07-17] VITALS (9 sets, daily range): BP systolic 140; BP diastolic 60; PULSE 72–110; RESP 16–18; TEMP 36.4–39.3; O2SAT 92–93
[2021-07-17] MEDS: enoxaparin 100 mg/mL Syringe 90 MG SUBCUT ×2 (00:23→23:36)
[2021-07-17 04:16] LABS: Basophils % 0.1 %; Eosinophils % 0.3 %; Hematocrit 32.1 % (42.0-52.0); Hemoglobin 10.8 g/dL (11.7-16.6); Lymphocytes # 1.3 10^3/uL (0.8-4.8); Lymphocytes % 14.3 %; Mean Corpuscular HGB Conc 33.6 g/dL (30.0-36.0); Mean Corpuscular Hemoglobin 33.3 pg (28.0-34.0); Mean Corpuscular Volume 99.1 fl (80-94); Mean Platelet Volume 10.8 fL (7.4-10.4); Monocytes # 1.4 10^3/uL (0.2-0.9); Monocytes % 16.1 %; Neutrophils # 6.06 10^3/uL (1.8-7.7); Nucleated Red Blood Cells % 0 %; Platelet Count 170 10^3/cmm (130-400); Red Blood Count 3.24 10^6/uL (4.1-5.3); Red Cell Distribution Width 12.4 % (12.1-15.1); White Blood Count 8.8 10^3/uL (4.0-10.0)
[2021-07-17 04:29] LABS: Alanine Aminotransferase 24 U/L (0-41); Albumin Level 3.7 g/dL (3.5-5.2); Alkaline Phosphatase 59 IU/L (40-130); Anion Gap 18.3 (5-19); Aspartate Amino Transferase 44 U/L (0-40); Blood Urea Nitrogen 25 mg/dL (8-23); Carbon Dioxide 22 mmol/L (22-29); Chloride 101 mmol/L (98-107); Creatinine Clr Calc Pharmacy 40.7178; Globulin 2.4 g/dL (1.3-4.6); Glucose 111 mg/dL (65-115); Osmolality Calculated 289 mOsm/kg (285-295); Potassium 4.3 mmol/L (3.5-5.1); Sodium 137 mmol/L (136-145); Total Bilirubin 0.3 mg/dL (0.15-1.2); Total Protein 6.1 g/dL (6.6-8.7)
[2021-07-17 04:30] LABS: Troponin T (5th) Once 1941 ng/L (0-15)
[2021-07-17] MEDS: acetaminophen 325 mg Tablet 650 MG PO ×2 (04:52→15:07)
[2021-07-17] MEDS: clopidogrel 75 mg Tablet PO (06:03)
[2021-07-17] MEDS: polyethylene glycol 3350 Pkt 17 gm PO (06:03)
[2021-07-17] MEDS: losartan 50 mg Tablet 25 MG PO (06:03)
[2021-07-17] MEDS: cyanocobalamin 1,000 mcg Tablet 1000 MCG PO (06:03)
[2021-07-17] MEDS: cholecalciferol (vitamin D3) 1,000 unit Tablet 1000 UNIT PO (06:04)
[2021-07-17] MEDS: montelukast sodium 10 mg Tablet PO (06:04)
[2021-07-17] MEDS: cetirizine 10 mg Tablet PO (06:04)
[2021-07-17] MEDS: aspirin 81 mg EC Tablet PO (06:05)
[2021-07-17] MEDS: FUROsemide 20 mg Tablet 10 MG PO (06:05)
[2021-07-17] MEDS: fluticasone nasal spray 16gm Btl 2 SPRAY INTRANASAL (06:07)
[2021-07-17] MEDS: isosorbide mononitrate ER 30 mg Tablet PO ×2 (08:29→17:52)
[2021-07-17] MEDS: amlodipine 5 mg Tablet PO (08:29)
[2021-07-17] MEDS: magnesium oxide 400 mg tablet PO ×2 (08:29→17:52)
[2021-07-17] MEDS: potassium chloride ER 10 mEq Tablet PO (08:29)
[2021-07-17] MEDS: docusate sodium 100 mg Capsule PO ×2 (08:29→17:51)
--- NOTE | 2021-07-17 08:35 | P.PN_ITS ---
Subjective Subjective: Interval history: Patient was seen and examined this morning, has occasional cough, denies any shortness of breath, nausea vomiting abdominal pain, urinary discomfort. Medications: Reviewed: Yes Vitals/I&O/Wt Last Vital Signs Temp 102.8 F H 07/17/21 04:50 Pulse 110 H 07/17/21 06:00 Resp 16 07/17/21 03:06 BP 140/60 07/17/21 03:06 Pulse Ox 92 07/17/21 03:06 07/16/21 07/17/21 07/17/21 22:59 06:59 14:59 Intake Total 612.195 / 612.195 100 / 712.195 918.333 / 918.333 Output Total 1000 / 1000 300 / 1300 Balance -387.805 / -387.805 -200 / -587.805 918.333 / 918.333 Weight last 48 hrs Weight 88.632 kg Weight 87.09 kg Physical Exam Const: COMMON NORMALS: patient oriented x3 HENMT: COMMON NORMALS: normocephalic and atraumatic HEAD & SCALP: normocephalic and atraumatic Resp: COMMON NORMALS: clear to auscultation bilaterally EFFORT & INSPECTION: Yes symmetric chest movement AUSCULTATION: clear to auscultation bilaterally Cardio: COMMON NORMALS: regular rate, regular rhythm, S1 normal heart sound present, S2 normal heart sound present, No gallops present (Cardio), No murmurs present (Cardio), No rub (Cardio) and Peripheral pulses 2+ throughout RATE: regular rate RHYTHM: regular rhythm HEART SOUNDS: S1 normal heart sound present and S2 normal heart sound present PERIPHERAL PULSES: Peripheral pulses 2+ throughout GI: COMMON NORMALS: Normal to inspection, nondistended, normoactive bowel sounds present, Soft to palpation, non-tender, No hepatosplenomegaly present and no masses AUSCULTATION: Yes normoactive bowel sounds PALPATION: Yes Soft to palpation and Yes No hepatosplenomegaly present RECTAL EXAM: Yes deferred Extremity: COMMON NORMALS: no clubbing, cyanosis or edema and no pedal edema Neuro: COMMON NORMALS: patient oriented x3 Data : 07/17/21 03:16 07/17/21 03:16 A&P Assessment and plan (1) Chest pain: Precordial throughout the chest and radiating into the back in a patient with a history of coronary artery disease, prior percutaneous interventions as well as prior bypass surgery Status: Acute Qualifiers: Chest pain type: precordial pain Qualified Code(s): R07.2 - Precordial pain (2) Acute coronary syndrome: With significant elevation in troponin and nonspecific EKG changes for which patient was taken to cardiac Tumbler Plater. No obstructive lesions requiring intervention were identified according to available information. Follow 2D echo Continue aspirin, Plavix, isosorbide and statin Continue therapeutic Lovenox Continue to hold amlodipine and losartan Status: Acute (3) Fever: For several days, T-max around 103. Has had respiratory symptoms predominantly of cough productive of some sputum, runny nose. Chest x-ray in the emergency room unremarkable. Influenza screening and rapid Covid antigen were negative but Covid PCR is pending. He is fully vaccinated and with booster shot. has not been sick. Also within the differential for persistent fever is other viral infections, occult bacterial infection, thrombotic process, medication effect, others Follow blood culture Urinalysis clean Covid PCR negative Procalcitonin normal Repeat chest x-ray: No infiltrates Urine Legionella antigen Urine bacterial antigen panel Empirically on ceftriaxone and azithromycin Status: Acute Qualifiers: Fever type: unspecified Qualified Code(s): R50.9 - Fever, unspecified (4) Macrocytic anemia: With recent drop in hemoglobin from prior baseline, no gross bleeding noted or reported Status: Acute (5) COPD (chronic obstructive pulmonary disease): With report of recent cough suggestive of possible acute on chronic process Status: Chronic Qualifiers: COPD type: chronic bronchitis Chronic bronchitis type: unspecified Qualified Code(s): J42 - Unspecified chronic bronchitis (6) Chronic kidney disease (CKD) stage G3a/A1, moderately decreased glomerular filtration rate (GFR) between 45-59 mL/min/1.73 square meter and albuminuria creatinine ratio less than 30 mg/g: Near baseline functioning Status: Chronic (7) Memory loss: Chronic, mild Status: Chronic (8) Idiopathic progressive neuropathy: Status: Chronic Additional A&P Information Elevated CK: continue to monitor CK. Patient has received adequate IV hydratio n.We will encourage p.o. intake TSH and free T4:Normal Albuterol inhaler as needed Oxygen therapy as needed CODE STATUS : full code DVT prophylaxis: On Lovenox Attestations Medical Necessity Statement*: Patient needs to be in hospital for management of acute coronary syndrome, fever. 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
--- NOTE | 2021-07-17 08:38 | USCV_ITS ---
Chris Thompson Age: 75 Gender: M : 1945 Exam Date: 07/17/2021 14:17 Ordering Phys: Fe Womack MD Technologist: SARA Exam Location: [facility] [place] Indication: ELEVATED TROPONIN. s/p CABG 1998, h/o cardiac stents. BP: 140 / 60 HR: 67 Rhythm: Sinus Technical Quality: Adequate MEASUREMENTS (Male / Female) Normal Values 2D ECHO LV Diastolic Diameter PLAX 4.3 cm 4.2 - 5.9 / 3.9 - 5.3 cm LV Systolic Diameter PLAX 3.7 cm IVS Diastolic Thickness 1.2 cm 0.6 - 1.0 / 0.6 - 0.9 cm IVS Systolic Thickness 1.7 cm LVPW Diastolic Thickness 0.9 cm 0.6 - 1.0 / 0.6 - 0.9 cm LVPW Systolic Thickness 0.9 cm LVOT Diameter 2.2 cm LV Ejection Fraction 2D Teich 30.2 % LV Ejection Fraction MOD 2C 34.4 % LV Ejection Fraction 2C AL 34.9 % LA Diameter 4.5 cm LA Width 4.2 cm LA Height 5.6 cm RA Width 3.5 cm RA Height 5.1 cm Aorta at Sinotubular Diameter 3.9 cm M-MODE Aortic Annulus Diameter 3.5 cm LA Ao Ratio MM 1.3 MV E Point Septal Separation 0.6 cm DOPPLER AV Peak Velocity 99.0 cm/s LVOT Peak Velocity 72.0 cm/s AV Area Cont Eq vti 2.3 cm squared AV Area Cont Eq pk 2.8 cm squared MV Area PHT 4.1 cm squared Mitral E to A Ratio 1.4 MV E' Velocity 68.0 cm/s Mitral E to MV E' Ratio 13.7 Mitral E to LV E' Lateral Ratio 12.1 Mitral E to LV E' Septal Ratio 15.7 TR Peak Velocity 255.0 cm/s TR Peak Gradient 26.0 mmHg TV Peak E Velocity 58.0 cm/s Right Atrial Pressure 3.0 mmHg Pulmonary Artery Systolic Pressu 29.0 mmHg PV Peak Velocity 98.0 cm/s RV Acceleration Time 0.1 s RV Ejection Time 0.3 s RV AcT/ET 0.2 FINDINGS Left Ventricle Normal left ventricular size, systolic function and wall thickness. Left ventricular ejection fraction is estimated at 55%. 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 Normal diastolic function. Right Ventricle Normal right ventricular size and systolic function. Right ventricular systolic pressure 29 mmHg. Right Atrium Normal right atrial size. Right atrial pressure estimated at 3 mm Hg. Left Atrium Mildly increased left atrial size. Mitral Valve Thickened mitral valve. No mitral valve stenosis. Trace mitral valve regurgitation. Aortic Valve Mildly thickened trileaflet aortic valve. No aortic valve stenosis. No aortic valve regurgitation. Tricuspid Valve Structurally normal tricuspid valve. Trace to mild tricuspid valve regurgitation. Pulmonic Valve Structurally normal pulmonic valve. Mild pulmonary valve regurgitation. Pericardium No pericardial effusion. Aorta Normal-sized aortic root. Normal-sized inferior vena cava with greater than 50% respiratory variation. CONCLUSIONS 1. Normal left ventricular size, systolic function and wall thickness. Left ventricular ejection fraction is estimated at 55%. 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 Normal diastolic function. 2. Pulmonary artery pressure estimated at 29 mmHg. 3. Trace to mild tricuspid valve regurgitation. 4. No prior similar studies to compare. Estefany Khan MD (Electronically Signed) Final Date: 17 July 2021 17:54 S
[2021-07-17 09:10] LABS: Fibrinogen 678 mg/dL (174-498)
[2021-07-17 09:12] LABS: Lactic Sepsis W/Reflex 0.9 mmol/L (0.5-2.2)
[2021-07-17 09:18] LABS: Procalcitonin 0.12 ng/mL (0-0.5)
[2021-07-17 09:19] LABS: Free T4 Free Thyroxine 1.03 ng/dL (0.82-1.77); Thyroid Stimulating Hormone 4.13 uIU/mL (0.27-4.20)
[2021-07-17 09:30] LABS: C Reactive Protein 147.4 mg/L (0.0-4.9); Ferritin 376 ng/mL (30-400); Lactate Dehydrogenase 347 U/L (135-225)
[2021-07-17 09:54] LABS: Creatine Phosphokinase 756 U/L (39-308)
[2021-07-17] MEDS: cefTRIAXone 1,000 MG in sodium chloride 0.9% (plus) 50 ML 100 MG IV (11:11)
[2021-07-17] MEDS: metoprolol tartrate 25 mg Tablet 12.5 MG PO ×2 (11:13→21:42)
[2021-07-17 12:02] LABS: Add Urine Microscopic? NO; Charge for UA Resulting for Rev
[2021-07-17 12:19] LABS: Bilirubin Urine Neg (Negative); Blood Urine Neg (Negative); Glucose Urine UA Norm (Normal); Ketones Urine Negative (Negative); Leukocyte Esterase Urine Negative (Negative); Nitrate Urine Negative (Negative); Protein Urine Neg (Negative); Specific Gravity, Urine 1.005 (1.005-1.030); Urine Appearance Clear (CLEAR); Urine Color Yellow (Yellow); Urobilinogen Urine Norm (Negative); pH Urine 5 (5-7)
--- NOTE | 2021-07-17 14:15 | XR_ITS ---
WS: [id number] Exam: XR chest 1V portable [id number] Date/Time of Exam: 07/17/2021 2:19 PM Reason For Exam: SOB Comparison 07/16/2021. The lungs are clear and fully expanded. Heart size is normal. The mediastinum is not widened. Signs o f previous CABG surgery with sternotomy. Monitoring leads superimpose the chest. XR/XR chest 1V portable [id number] IMPRESSION: 1. No acute cardiopulmonary finding. No change.
[2021-07-17 14:21] LABS: Coronavirus Test Green County Not Detected
[2021-07-17] MEDS: finasteride 5 mg Tablet PO (17:52)
[2021-07-17] MEDS: pantoprazole DR 40 mg Tablet PO (17:52)
[2021-07-17] MEDS: atorvastatin 40 mg Tablet 10 MG PO (17:52)
[2021-07-17] MEDS: donepezil 5 MG Tablet 10 MG PO (17:52)
[2021-07-17] MEDS: azithromycin 500 MG in sodium chloride 0.9% 250 ML 250 MG IV (17:54)
--- NOTE | 2021-07-17 18:33 | PC.NURSE ---
patient arrived from [facility]. placed on telemetry
--- NOTE | 2021-07-17 21:11 | PM.PN ---
Subjective Subjective: Interval history: Patient denies any complaint. Medications: Reviewed: Yes Medication Review Details: I personally reviewed home medication list and medications received day of admission thus far. Vitals/I&O/Wt Last Vital Signs Temp 100.4 F H 07/17/21 14:58 Pulse 75 07/17/21 11:16 Resp 18 07/17/21 11:16 BP 140/60 07/17/21 03:06 Pulse Ox 93 07/17/21 11:16 07/17/21 07/17/21 07/17/21 06:59 14:59 22:59 Intake Total 100 / 069.794 7776.333 / 1568.333 490 / 2058.333 Output Total 300 / 1300 300 / 300 Balance -200 / -314.972 3350.333 / 1268.333 490 / 1758.333 Weight last 48 hrs Weight 195 lb 6.4 oz Weight 192 lb Physical Exam Narrative: EXAM NARRATIVE: GENERAL: Patient is alert, awake and oriented x3. NECK: No jugular vein distension. HEENT: No cyanosis. No icterus. No pallor. HEART: Regular S1 and S2. No murmur, rub or gallop. LUNGS: Clear to auscultate bilaterally. ABDOMEN: Soft, nontender and nondistended. Positive bowel sounds. No guarding, rebound or tenderness. CENTRAL NERVOUS SYSTEM: Grossly nonfocal. EXTREMITIES: Lower extremities without edema bilaterally. Data : 07/17/21 03:16 07/17/21 03:16 Micro: Microbiology 07/17/21 08:20 Blood Culture - Preliminary Blood SPECIMEN COLLECTED 07/17/21 08:18 Blood Culture - Preliminary Blood SPECIMEN COLLECTED A&P Assessment and plan (1) Acute coronary syndrome: Patient was taken to the [facility] Special[facility] due to recurrent chest pain and dynamic EKG changes. He was noted to have patent circumflex 50% distal left main and RM to LAD was patent SVG to RCA which most likely is a culprit is diffusely diseased atretic and occluded in the proximal segment, no SVG to circumflex visualized. Medical management was suggested. Currently patient is chest pain-free. Rapid Covid was negative. Currently denies any complaint. We will continue medical management continue anticoagulation aspirin statin Plavix and nitroglycerin. I will ask for echocardiogram to assess LV function. Status: Acute (2) Cough: As per medicine Status: Inactive (3) Fever: As per medicine Status: Acute Qualifiers: Fever type: unspecified Qualified Code(s): R50.9 - Fever, unspecified (4) Chronic kidney disease (CKD) stage G3a/A1, moderately decreased glomerular filtration rate (GFR) between 45-59 mL/min/1.73 square meter and albuminuria creatinine ratio less than 30 mg/g: Continue IV fluid. Status: Chronic Attestations Medical Necessity Statement*: Patient require continuation of hospitalization for above defined care Coding Level of Care Code Established Pt Acute Childhood Teacher for Chg Fwd Patient Type Established History Detailed Exam Detailed Medical Decision Making Moderate Complexity Diagnoses Acute coronary syndrome I24.9 Cough R05.9 Fever R50.9 Fever type: unspecified Chronic kidney disease (CKD) stage G3a/A1, moderately decreased glomerular filtration rate (GFR) between 45-59 mL/min/1.73 square meter and albuminuria creatinine ratio less than 30 mg/g N18.31
[2021-07-17] MEDS: trazodone 150 mg Tablet PO (21:42)
[2021-07-18] VITALS (7 sets, daily range): BP systolic 124–170; BP diastolic 56–77; PULSE 57–75; RESP 17–19; TEMP 36.4–36.9; O2SAT 90–97
[2021-07-18] MEDS: ALPRAZolam 0.5 mg Tablet 0.25 MG PO (02:14)
[2021-07-18] MEDS: acetaminophen 325 mg Tablet 650 MG PO (02:14)
[2021-07-18 04:35] LABS: Partial Thromboplastin Time 43.9 SECONDS (23.9-36.7)
[2021-07-18 04:43] LABS: Alanine Aminotransferase 27 U/L (0-41); Albumin Level 3.4 g/dL (3.5-5.2); Alkaline Phosphatase 49 IU/L (40-130); Anion Gap 17.2 (5-19); Aspartate Amino Transferase 41 U/L (0-40); Blood Urea Nitrogen 23 mg/dL (8-23); Calcium 8.1 mg/dL (8.5-10.5); Carbon Dioxide 19 mmol/L (22-29); Chloride 105 mmol/L (98-107); Globulin 2.5 g/dL (1.3-4.6); Glucose 111 mg/dL (65-115); Magnesium 1.8 mg/dL (1.7-2.3); Osmolality Calculated 288 mOsm/kg (285-295); Potassium 4.2 mmol/L (3.5-5.1); Sodium 137 mmol/L (136-145); Total Bilirubin 0.3 mg/dL (0.15-1.2); Total Protein 5.9 g/dL (6.6-8.7)
[2021-07-18 04:46] LABS: Creatine Phosphokinase 573 U/L (39-308)
[2021-07-18 05:18] LABS: Troponin T (5th) Once 1777 ng/L (0-15)
[2021-07-18] MEDS: cyanocobalamin 1,000 mcg Tablet 1000 MCG PO (06:12)
[2021-07-18] MEDS: montelukast sodium 10 mg Tablet PO (06:12)
[2021-07-18] MEDS: losartan 50 mg Tablet 25 MG PO (06:12)
[2021-07-18] MEDS: cholecalciferol (vitamin D3) 1,000 unit Tablet 1000 UNIT PO (06:13)
[2021-07-18] MEDS: FUROsemide 20 mg Tablet 10 MG PO (06:13)
[2021-07-18] MEDS: aspirin 81 mg EC Tablet PO (06:13)
[2021-07-18] MEDS: fluticasone nasal spray 16gm Btl 2 SPRAY INTRANASAL (06:13)
[2021-07-18] MEDS: clopidogrel 75 mg Tablet PO (06:13)
[2021-07-18] MEDS: polyethylene glycol 3350 Pkt 17 gm PO (06:14)
--- NOTE | 2021-07-18 10:09 | PC.CHAP ---
Pastoral Care Encounter/Spiritual Assessment Type of Contact [] Declined incendiaries supervisor visit [] Patient/Family/Request visit [] Outpatient visit [] Follow-up visit [] Physician referral [] Code/Alert [x] Routine visit [] Staff referral [] Actively dying [] Patient sleeping [] Family support [] [] Out of room [] Palliative care [] [] Receiving care in room [] Pre-surgical visit [] Trauma [] Long length of stay [] ICU visit [] Other: Relational/Emotional Strength [x] Patient feels connected with others/family/visitors/staff [] Distress [] Loneliness/isolation [] Abandonment Spirituality of Patient [x] Person of Pia [x] Attends Congregational of their Pia [x] Believes in Prayer [x] Reads Bible or Adventism materials [] There are Spiritual issues to be addressed Bridge Operator Slip Interventions [x] Prayer [x] Active listening [x] Non-anxious presence [x] Spiritual/emotional support [] Crisis/trauma care [] Spiritual counseling [] Bereavement support [] Provided bereavement packet [] Provided Bible/devotional materials [] Provided toy/stuffed animal, coloring book to patient or family member [] Provided Communion [] Anointing/[place] [] Salvation [] Completed spiritual assessment [] Other: Impact on Illness or Injury [] Angry [] Fearful [] Anxious [] Often cries [] Exhaustion [] Unable to work [] Unable to attend catholic [] Unable to walk/stand [] Unable to read [] Unable to drive [] Unable to eat/drink [] Unable to sleep [] Unable to be with family [] Patient intubated [] Other: Summary patient complain about being cold Time spent with patient 15 min
--- NOTE | 2021-07-18 10:11 | P.DS_ITS ---
Discharge Providers Date of Admission: 07/16/21 20:46 Date of Discharge: July 18, 2021 Attending Provider at Admission: Brittni Lopez MD Attending Provider at Discharge: Parker Cherry MD Primary Care Provider: Luzmaria Andrea MD Diagnoses at Discharge Discharge Diagnosis (1) Acute coronary syndrome: Status: Acute (2) Fever: Status: Acute Qualifiers: Fever type: unspecified Qualified Code(s): R50.9 - Fever, unspecified (3) Chronic kidney disease (CKD) stage G3a/A1, moderately decreased glomerular filtration rate (GFR) between 45-59 mL/min/1.73 square meter and albuminuria creatinine ratio less than 30 mg/g: Status: Chronic Reason for Visit Reason for Visit: SOB Hospital Course Hospital Course 75-year-old male with past medical history of hypertension, coronary artery disease status post CABG,PCI, CKD stage III, came in with chief complaint of complaint of chest pain. Pain is located in the center of his chest and radiated into his back. Described as severe, he was admitted for the management of acute coronary syndrome, was kept on ACS protocol underwent cardiac cath which showed patent circumflex 50% distal left main and RM to LAD was patent SVG to RCA which most likely is a culprit is diffusely diseased atretic and occluded in the proximal segment, no SVG to circumflex visualized.2D echo: Normal left ventricular size, systolic function and wall thickness. Left ventricular ejection fraction is estimated at 55%. 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 Patient was continued on aspirin, Plavix , statin , isosorbide, patient lately remained chest pain-free, cardiology was of the opinion to continue with current medical management. Patient was also having fever during the hospital stay unclear etiology blood culture: Was negative at the time of discharge, Urinalysis clean , Covid PCR negative , Procalcitonin normal , chest x-ray: No infiltrates, influenza was negative, patient was empirically kept on ceftriaxone and azithromycin. Patient was advised to stay at least 48 hours of afebrile, he was insistent on going home, as he was feeling perfectly fine, he was afebrile close to 24 hours prior to discharge, and denied any active ongoing complaints, he was discharged home with the advice for close monitoring and if he becomes febrile then to come back to the ER.Patient responded well to above medical management and is being discharged in stable condition to home.He will continue to follow cardiology as an outpatient. Physical Exam Const: COMMON NORMALS: patient oriented x3 HENMT: COMMON NORMALS: normocephalic and atraumatic HEAD & SCALP: normocephalic and atraumatic Resp: COMMON NORMALS: clear to auscultation bilaterally EFFORT & INSPECTION: Yes symmetric chest movement AUSCULTATION: clear to auscultation bilaterally Cardio: COMMON NORMALS: regular rate, regular rhythm, S1 normal heart sound present, S2 normal heart sound present, No gallops present (Cardio), No murmurs present (Cardio), No rub (Cardio) and Peripheral pulses 2+ throughout RATE: regular rate RHYTHM: regular rhythm HEART SOUNDS: S1 normal heart sound present and S2 normal heart sound present PERIPHERAL PULSES: Peripheral pulses 2+ throughout GI: COMMON NORMALS: Normal to inspection, nondistended, normoactive bowel sounds present, Soft to palpation, non-tender, No hepatosplenomegaly present and no masses AUSCULTATION: Yes normoactive bowel sounds PALPATION: Yes Soft to palpation and Yes No hepatosplenomegaly present RECTAL EXAM: Yes deferred Extremity: COMMON NORMALS: no clubbing, cyanosis or edema and no pedal edema Neuro: COMMON NORMALS: patient oriented x3 Discharge Data Data Completed and Pending: Completed Studies During Hospitalization Category Date Time Status XR chest 1V gisselle ble [id number] Routine Exams 07/17/21 14:15 Completed XR chest 1V gisselle ble [id number] Urgent Exams 07/16/21 15:43 Completed CV. echo complete * [id number] Routine Ultrasound 07/17/21 08:38 Completed Pending at discharge Category Date Time Status SH[employer] F[employer]RICATOR request for service Stat Exams 07/16/21 19:01 Taken Blood Culture Rou josselyn Lab 07/17/21 08:20 Results Labs from last 24 hours 07/18/21 07/18/21 07/18/21 03:58 03:58 03:58 PT 15.60 H INR 1.20 APTT 43.9 H Sodium 137 Potassium 4.2 Chloride 105 Carbon Dioxide 19 L Anion Gap 17.2 BUN 23 Creatinine 1.6 H GFR Calculation Not Reportable Glucose 111 Calculated Osmolal ity 288 Calcium 8.1 L Magnesium 1.8 Total Bilirubin 0.3 AST 41 H ALT 27 Alkaline Phosphata se 49 Creatine Kinase 573 H* Troponin T Gen 5 n g/L Total Protein 5.9 L Albumin 3.4 L Globulin 2.5 Urine Color Urine Appearance Urine pH Ur Specific Gravit y Urine Protein Urine Glucose (UA) Urine Ketones Urine Blood Urine Nitrate Urine Bilirubin Urine Urobilinogen Ur Leukocyte Luna ase Nasal/Oral COVID-1 9 PCR 07/18/21 07/17/21 07/16/21 03:58 11:55 15:45 PT INR APTT Sodium Potassium Chloride Carbon Dioxide Anion Gap BUN Creatinine GFR Calculation Glucose Calculated Osmolal ity Calcium Magnesium Total Bilirubin AST ALT Alkaline Phosphata se Creatine Kinase Troponin T Gen 5 n g/L 1777 H* Total Protein Albumin Globulin Urine Color Yellow Urine Appearance Clear Urine pH 5 Ur Specific Gravit y 1.005 Urine Protein Neg Urine Glucose (UA) Norm Urine Ketones Negative Urine Blood Neg Urine Nitrate Negative Urine Bilirubin Neg Urine Urobilinogen Norm Ur Leukocyte Luna ase Negative Nasal/Oral COVID-1 9 PCR Not detected Vitals: Last Vital Signs Temp 98.4 F 07/18/21 07:16 Pulse 61 07/18/21 07:26 Resp 17 07/18/21 07:26 BP 130/69 07/18/21 07:16 Pulse Ox 90 07/18/21 07:26 Discharge Plan Discharge Patient Disposition: Home Condition: Stable Prescriptions: Continued amlodipine 5 mg tablet 5 mg PO BID Qty: 180 RF: 2 albuterol sulfate [ProAir HFA] 90 mcg/actuation HFA aerosol inhaler 2 puff inhalation Q6H PRN (Reason: shortness of breath or wheezing) Qty: 8.5 RF: 2 furosemide 20 mg tablet 10 mg PO QAM Qty: 45 RF: 2 isosorbide mononitrate 30 mg tablet extended release 24 hr 30 mg PO BID Qty: 180 RF: 2 ketoconazole 2 % cream 1 applic TOPICAL PRN RF: 0 magnesium 250 mg Tablet 250 mg PO DAILY RF: 0 potassium gluconate 595 mg (99 mg) Tablet 595 mg PO QAM RF: 0 Zyrtec 10 mg tablet 10 mg PO QAM RF: 0 donepezil 10 mg tablet 10 mg PO QPM RF: 0 clonazepam 1 mg tablet 1 mg PO DAILY RF: 0 clopidogrel 75 mg tablet 75 mg PO QAM RF: 0 Adult Low Dose Aspirin 81 mg tablet,delayed release (DR/EC) 81 mg PO QAM RF: 0 trazodone 150 mg tablet 150 mg PO BEDTIME RF: 0 Prevacid 30 mg capsule,delayed release(DR/EC) 30 mg PO QPM RF: 0 losartan 25 mg tablet 25 mg PO QAM RF: 0 montelukast 10 mg tablet 10 mg PO QAM RF: 0 Miralax 17 gram/dose powder 17 g PO QAM RF: 0 Allergy Relief (fluticasone) 50 mcg/actuation spray,suspension 2 spray INTRANASAL QAM RF: 0 finasteride 5 mg tablet 5 mg PO QPM RF: 0 cholecalciferol (vitamin D3) 25 mcg (1,000 unit) capsule 1,000 unit PO QAM RF: 0 rosuvastatin 10 mg tablet 10 mg PO QPM RF: 0 mecobalamin (vitamin B12) 1,000 mcg tablet,disintegrating 1,000 mcg SUBLINGUAL QAM RF: 0 Discharge Orders: Discharge Order (Routine); Ordered 07/18/21 Ordered By: Parker Cherry Referrals: Brittni Lopez MD [Physician] - 08/20/21 12:15 pm Luzmaria Andrea MD [Primary Care Provider] - 07/25/21 2:00 pm Discharge Diet: Cardiac Discharge Activity: Resume usual activity Patient Instructions: Chest Pain (DC), Surgical Site Infections (DC), Heart Catheterization (DC), Opioid Safety Discharge Attestations Time Spent in Discharge Care*: less than 30 min Specific Discharge Activities: educating patient, educating and/or supporting family/caregiver, discussing with pcp/other providers, discussing with case work aide/social workers/dc planners, documenting/other paperwork and evaluating patient/reviewing data Status at Discharge: Cognitive status at discharge: cognitively intact , Behavioral status at discharge: cooperative , Functional status at discharge: independent ambulation Overall status at discharge: patient is back to baseline Quality Metrics Clinical Quality Measures During this hospital stay, did patient experience: None Coding Level of Care Code Acute Chg FW DC note Diagnoses Acute coronary syndrome I24.9 Fever R50.9 Fever type: unspecified Chronic kidney disease (CKD) stage G3a/A1, moderately decreased glomerular filtration rate (GFR) between 45-59 mL/min/1.73 square meter and albuminuria creatinine ratio less than 30 mg/g N18.31
[2021-07-18] MEDS: magnesium oxide 400 mg tablet PO (10:14)
[2021-07-18] MEDS: docusate sodium 100 mg Capsule PO (10:14)
[2021-07-18] MEDS: isosorbide mononitrate ER 30 mg Tablet PO (10:14)
[2021-07-18] MEDS: potassium chloride ER 10 mEq Tablet PO (10:15)
[2021-07-18] MEDS: metoprolol tartrate 25 mg Tablet 12.5 MG PO (10:17)
--- NOTE | 2021-07-18 10:33 | PC.NURSE ---
family provided power of civil litigation attorney paperwork. paperwork copied and placed in file.
== END 2021-07-18 11:05 | disposition home or self-care (01) | DRG 281 ==
LOC: ER 17:23 → CCL 19:02 → CSU 20:48 → MEDSURG 07-17 22:12
PROVIDERS: Hospitalist; Admitting Provider Internal Medicine Cardiovascular Disease; Emergency Provider Emergency Medicine; PCP Family Medicine; Visit Provider Internal Medicine
PROC: B2111ZZ Fluoroscopy of Multiple Coronary Arteries using Low Osmolar Contrast (ICD-10-PCS; principal; 2021-07-16 18:30)
DX: I21.4 Non-ST elevation (NSTEMI) myocardial infarction (principal); I25.810 Atherosclerosis of coronary artery bypass graft(s) without angina pectoris; I24.9 Acute ischemic heart disease, unspecified; I25.10 Atherosclerotic heart disease of native coronary artery without angina pectoris; I12.9 Hypertensive chronic kidney disease with stage 1 through stage 4 chronic kidney disease, or unspecified chronic kidney disease; N18.31 Chronic kidney disease, stage 3a; R50.9 Fever, unspecified; N40.1 Benign prostatic hyperplasia with lower urinary tract symptoms; N30.10 Interstitial cystitis (chronic) without hematuria; F41.9 Anxiety disorder, unspecified; J42 Unspecified chronic bronchitis; F32.A Depression, unspecified; K21.00 Gastro-esophageal reflux disease with esophagitis, without bleeding; H40.9 Unspecified glaucoma; E78.2 Mixed hyperlipidemia; G60.3 Idiopathic progressive neuropathy; I25.2 Old myocardial infarction; G47.33 Obstructive sleep apnea (adult) (pediatric); M19.90 Unspecified osteoarthritis, unspecified site; I73.00 Raynaud's syndrome without gangrene; D53.9 Nutritional anemia, unspecified; R41.3 Other amnesia; Z87.891 Personal history of nicotine dependence; Z95.1 Presence of aortocoronary bypass graft; Z95.5 Presence of coronary angioplasty implant and graft; Z79.82 Long term (current) use of aspirin
CPT/HCPCS: 36415; 71045; 80048; 80053; 81003; 82550; 82728; 83605; 83615; 83735; 83880; 84145; 84439; 84443; 84484; 85025; 85384; 85610; 85730; 86140; 87040; 87426; 87635; 87804; 93005; 93306; 93455; 96365; 96366; 96372; 99285; C1760; C1769; C1887; C1894; J0456; J0696; J1644; J1650; J2250; J3010; J7030; J7040; J7050; Q9967

== ENCOUNTER → 2021-07-26 15:52 | Outpatient (BNVA) | payer MEDICARE, OTHER, SELFPAY | PROVIDERS: PCP Family Medicine; Visit Provider Nurse Practitioner Family | DX: I25.810 Atherosclerosis of coronary artery bypass graft(s) without angina pectoris (principal) | CPT/HCPCS: 80048 ==

== ENCOUNTER → 2021-08-23 09:12 | Outpatient (BNVA) | payer MEDICARE, OTHER, SELFPAY | PROVIDERS: PCP Family Medicine; Visit Provider Internal Medicine | DX: D64.9 Anemia, unspecified (principal); E61.1 Iron deficiency; E79.0 Hyperuricemia without signs of inflammatory arthritis and tophaceous disease; N15.9 Renal tubulo-interstitial disease, unspecified; N18.30 Chronic kidney disease, stage 3 unspecified | CPT/HCPCS: 80048; 81000; 82040; 82310; 82728; 83550; 83735; 83970; 84100; 84550; 85018 ==

== ENCOUNTER 2021-08-26 21:38 | Inpatient (IN) | payer MEDICARE, OTHER, SELFPAY ==
[2021-08-26] VITALS (20 sets, daily range): BP systolic 54–114; BP diastolic 42–85; PULSE 124–153; RESP 13–22; TEMP 36.9; O2SAT 88–96; BMI 27.3
--- NOTE | 2021-08-26 21:42 | ECG_ITS ---
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1945 Requested By: Tiffanie Branch Order Number: [id number] Reading MD: MARTHA SELF Measurements Intervals [place] Rate: 152 P: DC: QRS: 7 QRSD: 180 T: -71 QT: 341 QTc: 543 Interpretive Statements ATRIAL FLUTTER/TACHYCARDIA WITH RAPID VENTRICULAR RESPONSE WITH ABERRANT CONDUCTION OR VENTRICULAR PREMATURE COMPLEXES LEFT BUNDLE BRANCH BLOCK [120+ ms QRS DURATION, 80+ ms Q/S IN V1/V2, 85+ ms R IN I/aVL/V5/V6] CRITICAL TEST RESULT INTERPRETATION BASED ON A DEFAULT AGE OF 40 YEARS Compared to ECG 07/16/2021 18:53:48 Ventricular premature complex(es) now present Left bundle-branch block now present Sinus bradycardia no longer present First degree AV block no longer present Myocardial infarct finding no longer present Electronically Signed On 08-27-2021 20:54:19 SMALL STOCK FACER by MARTHA SELF [id number] f
--- NOTE | 2021-08-26 21:42 | XRR_ITS ---
PROCEDURE INFORMATION: Exam: XR Chest Exam date and time: 08/26/2021 9:42 PM Age: 76 years old Clinical indication: Pain; Chest pressure; Prior surgery; Surgery date: 6+ months; Surgery type: Cabg; Additional info: Cp TECHNIQUE: Imaging protocol: XR of the chest. Views: 1 view. COMPARISON: CR XR chest 1V portable [id number] 07/17/2021 3:19 PM FINDINGS: Lungs: Bibasilar atelectasis versus minimal infiltrate. Pleural spaces: Unremarkable. No pleural effusion. No pneumothorax. Heart/Mediastinum: Unremarkable. No cardiomegaly. Bones/joints: Sternotomy wires. XR/XR chest 1V portable [id number] IMPRESSION: Bibasilar atelectasis versus minimal infiltrate.
--- NOTE | 2021-08-26 21:57 | W.ED.CHESTPA ---
HPI - Chest Pain General: Chief Complaint: Chest Pain Stated Complaint: CP Time Seen by Provider: 08/26/21 21:42 Source: patient and EMS Mode of arrival: EMS Limitations: no limitations History of Present Illness: HPI narrative: 76-year-old male has an extensive cardiac history states that he was in an argument with a neighbor 3 to 4 hours ago and started having some chest pain along with palpitations states the pain is improved is currently a 2 out of 10. He did have a cath back in July that showed vessel disease but unable to do any stents and was going to just manage medically. He is in atrial flutter here heart rate 115 no history of atrial flutter. He denies any worsening improving factors denies any shortness of breath prior to the Associated symptoms: Reports palpitations; Deny abdominal pain, dyspnea, fever(s), nausea or vomiting Review of Systems Const: Denies: fever(s), chills, body aches or change in appetite Eyes: Denies: blurry vision or eye discomfort ENMT: Denies: throat pain or dental pain Card: Reports: chest pain and palpitations Resp: Denies: dyspnea GI: Denies: abdominal pain, nausea, vomiting or diarrhea : Denies: dysuria Musc: Denies: neck pain or back pain Skin/Breast: Denies: rash Neuro: Denies: headache(s) Psych: Denies: depression Mickey/Lymph: Denies: easy bruising All/Imm: Denies: urticaria PFSH ED PFSH: Medical History Acute coronary syndrome Anxiety BPH w urinary obs/LUTS Chest pain Chronic kidney disease (CKD) stage G3a/A1, moderately decreased glomerular filtration rate (GFR) between 45-59 mL/min/1.73 square meter and albuminuria creatinine ratio less than 30 mg/g Chronic renal disease, stage 3, moderately decreased glomerular filtration rate (GFR) between 30-59 mL/min/1.73 square meter Chronic ulcerating interstitial cystitis COPD (chronic obstructive pulmonary disease) Coronary artery disease involving autologous vein coronary bypass graft without angina pectoris COVID-19 vaccine administered 2 doses plus booster Depression Erectile dysfunction Ex-smoker Gastro-esophageal reflux disease with esophagitis Glaucoma Hyperlipemia, mixed Hypertension Idiopathic progressive neuropathy Left carotid bruit Macrocytic anemia Memory loss Myocardial infarct, old Obstructive sleep apnea Osteoarthritis Raynaud's disease ST elevation (STEMI) myocardial infarction Surgical History H/O vasectomy S/P angioplasty S/P coronary artery bypass graft x 2 S/P cystoscopy Family History Mother CAD (coronary artery disease) Father CAD (coronary artery disease) Sister CAD (coronary artery disease) Family/Other Hypertension Social History Quit status (tobacco): has quit using tobacco Year quit tobacco: 1988 [id number] Second hand smoke exposure: No Alcohol intake: never Lives independently: Yes Household members: spouse Housing: House Marital status: service: No Current occupational status: retired Pets and animals: No History of recent travel: No Current gender identity: Male Special evelyn needs: No Physical Exam Const: COMMON NORMALS: patient oriented x3 and healthy appearing HENMT: COMMON NORMALS: normocephalic and atraumatic HEAD & SCALP: normocephalic and atraumatic Eye: COMMON NORMALS: Equal, round and reactive pupils present and EOMs intact bilaterally PUPIL: Yes Equal, round and reactive pupils present Neck/C-Spine: COMMON NORMALS: full ROM and supple Chest: COMMONS NORMALS: normal inspection of the chest and normal palpation of entire chest wall Resp: COMMON NORMALS: normal respiratory effort, No retractions, No use of accessory muscles and clear to auscultation bilaterally AUSCULTATION: clear to auscultation bilaterally Cardio: COMMON NORMALS: No murmurs present (Cardio) RATE: tachycardic RHYTHM: abnormal rhythm irregularly irregular GI: COMMON NORMALS: Normal to inspection, nondistended, normoactive bowel sounds present, Soft to palpation, non-tender and no masses PALPATION: Yes Soft to palpation Extremity: COMMON NORMALS: normal to inspection and full ROM Neuro: COMMON NORMALS: patient oriented x3, moves all extremities and no focal motor deficits Psych: COMMON NORMALS: mental status grossly normal, Normal thought process present and cooperative THOUGHT PROCESS: Normal thought process present Skin: COMMON NORMALS: no rashes or lesions noted and no wounds GENERAL SKIN EXAM: no rashes or lesions noted Course Reevaluation(s): Reevaluation #1: Patient became hypotensive after the Cardizem bolus. His atrial flutter has slowed down a little its in the 120s currently. We will give IV bolus switch over to amiodarone if he still is hypotensive we will likely have to cardiovert. I spoke to Dr. Lopez who knows patient well he is consulted and agrees with that plan as well. We will give patient Lovenox he does have an elevated troponin but his troponins been elevated at baseline in the past we will trend it. Time: 23:31 Vital Signs: Vital signs: Vital Signs Temperature 98.4 F 08/26/21 21:41 Pulse Rate 57 L 08/27/21 02:00 Respiratory Rate 13 08/27/21 02:00 Blood Pressure 93/65 08/27/21 02:00 Pulse Oximetry 97 08/27/21 02:00 MDM - Chest Pain MDM Narrative: Medical decision making narrative: Patient presents here with chest pain elevated troponin consistent with a possible NSTEMI. Patient is also in atrial flutter he is converted here after amiodarone blood pressure is improved after that as well. Will admit to the cardiac stepdown cardiology is consulted. Patient was given Lovenox here. Lab Data: Labs: Lab Results 08/26/21 08/26/21 08/26/21 21:50 21:50 21:50 WBC Cancelled Corrected WBC Cancelled RBC Cancelled Hgb Cancelled Hct Cancelled MCV Cancelled MCH Cancelled MCHC Cancelled RDW Cancelled Plt Count Cancelled MPV Cancelled Gran % Cancelled Neut % (Auto) Cancelled Lymph % (Auto) Cancelled Miller % (Auto) Cancelled Eos % (Auto) Cancelled Baso % (Auto) Cancelled Neut # (Auto) Cancelled Lymph # (Auto) Cancelled Miller # (Auto) Cancelled Eos # (Auto) Cancelled Baso # (Auto) Cancelled Absolute Gran (aut o) Cancelled Nucleated RBC % (a uto) Cancelled Nucleated RBCs # Cancelled D-Dimer Sodium 138 mmol/L mmol/L (136-145) Potassium 4.0 mmol/L mmol/L (3.5-5.1) Chloride 103 mmol/L mmol/L (98-107) Carbon Dioxide 21 mmol/L L mmol/ L (22-29) Anion Gap 18.0 (5-19) BUN 19 mg/dL mg/dL (8-23) Creatinine 1.5 mg/dL H mg/dL (0.7-1.2) GFR Calculation Not Reportable Glucose 106 mg/dL mg/dL (65-115) Calculated Osmolal ity 289 mOsm/kg mOsm/ kg (285-295) Calcium 8.4 mg/dL L mg/dL (8.5-10.5) Total Bilirubin 0.3 mg/dL mg/dL (0.15-1.2) AST 58 U/L H U/L (0-40) ALT 41 U/L U/L (0-41) Alkaline Phosphata se 62 IU/L IU/L (40-130) Troponin T Baselin e 435 ng/L H* ng/L (0-15) Troponin T 120 Min [place] Delta Troponin T NT-Pro-B Natriuret Pep Total Protein 6.3 g/dL L g/dL (6.6-8.7) Albumin 4.2 g/dL g/dL (3.5-5.2) Globulin 2.1 g/dL g/dL (1.3-4.6) SARS-CoV-2 Ag (Rap id) 08/26/21 08/26/21 08/26/21 23:19 23:19 23:19 WBC Corrected WBC RBC Hgb Hct MCV MCH MCHC RDW Plt Count MPV Gran % Neut % (Auto) Lymph % (Auto) Miller % (Auto) Eos % (Auto) Baso % (Auto) Neut # (Auto) Lymph # (Auto) Miller # (Auto) Eos # (Auto) Baso # (Auto) Absolute Gran (aut o) Nucleated RBC % (a uto) Nucleated RBCs # D-Dimer 0.69 ug/mIFEU H u g/mIFEU (0-0.59) Sodium Potassium Chloride Carbon Dioxide Anion Gap BUN Creatinine GFR Calculation Glucose Calculated Osmolal ity Calcium Total Bilirubin AST ALT Alkaline Phosphata se Troponin T Baselin e Troponin T 120 Min [place] 501.1 ng/L H ng/L (0-15) Delta Troponin T 66.1 ABS# H* ABS# (0-10) NT-Pro-B Natriuret Pep 1542 pg/mL H pg/m L (0-450) Total Protein Albumin Globulin SARS-CoV-2 Ag (Rap id) 08/26/21 08/26/21 23:32 23:55 WBC 6.4 10^3/uL 10^3/ uL (4.0-10.0) Corrected WBC RBC 2.89 10^6/uL L 10 ^6/uL (4.1-5.3) Hgb 9.8 g/dL L g/dL (11.7-16.6) Hct 29.5 % L % (42.0-52.0) MCV 102.1 fl H fl (80-94) MCH 33.9 pg pg (28.0-34.0) MCHC 33.2 g/dL g/dL (30.0-36.0) RDW 13.0 % % (12.1-15.1) Plt Count 159 10^3/cmm 10^3 /cmm (130-400) MPV 10.4 fL fL (7.4-10.4) Gran % Neut % (Auto) 53.1 % % Lymph % (Auto) 32.6 % % Miller % (Auto) 12.9 % % Eos % (Auto) 0.9 % % Baso % (Auto) 0.2 % % Neut # (Auto) 3.40 10^3/uL 10^3 /uL (1.8-7.7) Lymph # (Auto) 2.1 10^3/uL 10^3/ uL (0.8-4.8) Miller # (Auto) 0.8 10^3/uL 10^3/ uL (0.2-0.9) Eos # (Auto) 0.1 10^3/uL 10^3/ uL (0.0-0.8) Baso # (Auto) 0.0 10^3/uL 10^3/ uL (0.0-0.1) Absolute Gran (aut o) Nucleated RBC % (a uto) 0 % % Nucleated RBCs # 0.0 /100WBC /100W BC D-Dimer Sodium Potassium Chloride Carbon Dioxide Anion Gap BUN Creatinine GFR Calculation Glucose Calculated Osmolal ity Calcium Total Bilirubin AST ALT Alkaline Phosphata se Troponin T Baselin e Troponin T 120 Min [place] Delta Troponin T NT-Pro-B Natriuret Pep Total Protein Albumin Globulin SARS-CoV-2 Ag (Rap id) Positive H (Negative) EKG Data^: EKG 1: Attestation: I personally reviewed and interpreted this EKG as follows: EKG interpretation date: 08/26/21 EKG interpretation time: 21:47 Interpretation: atrial flutter hr [address] or t wave abnormalities qrs 180 qtc 427 EKG 2: Attestation: I personally reviewed and interpreted this EKG as follows: EKG interpretation date: 08/27/21 EKG interpretation time: 00:56 Interpretation: sinus jacklyn hr [address] or t wave abnormaltieis qrs 193 qtc 469 Critical Care Time Critical Care Time: Critical Care Time: Yes Total Critical Care Time: 45 Attestation: The high probability of a clinically significant, sudden or life threatening deterioration of the patient's CV system(s) required my full and direct attention, intervention and personal management. The critical care time is as shown. This time is in addition to time spent performing any reported procedures but includes the following: [x] Data and vital sign review and interpretation [x] Patient assessment, examination and intervention [x] Documentation [x] Medication orders and management Discharge Plan Discharge Patient Disposition: Admitted As Inpatient Admit Provider: Luis Stelee Clinical Impression: Non-ST elevation SD (NSTEMI), Atrial flutter, COVID-19 Condition: Stable Coding Level of Care Code ED Applications Development Consultant for Chg Fwd Exam Comprehensive
[2021-08-26] MEDS: sodium chloride 0.9% 1,000 ML 999 ML IV (22:14)
[2021-08-26] MEDS: ondansetron 2 mg/ML SDV 2 mL 4 MG IVP (22:15)
[2021-08-26] MEDS: morphine 4 mg/mL SDV 1 mL IVP (22:18)
[2021-08-26 22:34] LABS: Alanine Aminotransferase 41 U/L (0-41); Albumin Level 4.2 g/dL (3.5-5.2); Alkaline Phosphatase 62 IU/L (40-130); Aspartate Amino Transferase 58 U/L (0-40); Blood Urea Nitrogen 19 mg/dL (8-23); Calcium 8.4 mg/dL (8.5-10.5); Carbon Dioxide 21 mmol/L (22-29); Chloride 103 mmol/L (98-107); Globulin 2.1 g/dL (1.3-4.6); Glucose 106 mg/dL (65-115); Osmolality Calculated 289 mOsm/kg (285-295); Sodium 138 mmol/L (136-145); Total Bilirubin 0.3 mg/dL (0.15-1.2); Total Protein 6.3 g/dL (6.6-8.7)
[2021-08-26 22:35] LABS: Troponin(5th) Baseline 435 ng/L (0-15)
[2021-08-26] MEDS: enoxaparin 80 mg/0.8 mL Syringe SUBCUT (23:25)
--- NOTE | 2021-08-26 23:42 | ECG_ITS ---
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1945 Requested By: Tiffanie Branch Order Number: [id number] Reading MD: MARTHA SELF Measurements Intervals [place] Rate: 146 P: MT: QRS: 23 QRSD: 179 T: -65 QT: 350 QTc: 546 Interpretive Statements ATRIAL FLUTTER/TACHYCARDIA WITH RAPID VENTRICULAR RESPONSE WITH ABERRANT CONDUCTION OR VENTRICULAR PREMATURE COMPLEXES LEFT BUNDLE BRANCH BLOCK [120+ ms QRS DURATION, 80+ ms Q/S IN V1/V2, 85+ ms R IN I/aVL/V5/V6] Compared to ECG 08/26/2021 21:47:46 No significant changes Electronically Signed On 08-27-2021 20:57:35 LUMBER DRIVER by MARTHA SELF [id number]
[2021-08-26] MEDS: amiodarone 50 mg/mL SDV 3 mL 150 MG IVP (23:45)
[2021-08-26 23:54] LABS: SARS Covid-2 Antigen Positive (Negative)
[2021-08-26 23:54] LABS: Troponin 5 2HR 501.1 ng/L (0-15); Troponin 5 2HR Delta 66.1 ABS# (0-10)
[2021-08-27] VITALS (44 sets, daily range): BP systolic 53–146; BP diastolic 42–79; PULSE 43–133; RESP 7–27; TEMP 36.7–36.9; O2SAT 75–99; BMI 29.2
[2021-08-27] LABS: Basophils % 0.2 %; Eosinophils # 0.1 10^3/uL (0.0-0.8); Eosinophils % 0.9 %; Hematocrit 29.5 % (42.0-52.0); Hemoglobin 9.8 g/dL (11.7-16.6); Lymphocytes # 2.1 10^3/uL (0.8-4.8); Lymphocytes % 32.6 %; Mean Corpuscular HGB Conc 33.2 g/dL (30.0-36.0); Mean Corpuscular Hemoglobin 33.9 pg (28.0-34.0); Mean Corpuscular Volume 102.1 fl (80-94); Mean Platelet Volume 10.4 fL (7.4-10.4); Monocytes # 0.8 10^3/uL (0.2-0.9); Monocytes % 12.9 %; Neutrophils % 53.1 %; Nucleated Red Blood Cells % 0 %; Platelet Count 159 10^3/cmm (130-400); Red Blood Count 2.89 10^6/uL (4.1-5.3); White Blood Count 6.4 10^3/uL (4.0-10.0)
[2021-08-27 00:14] LABS: D Dimer 0.69 ug/mIFEU (0-0.59)
[2021-08-27 00:21] LABS: NT Pro B Type Natriuretic Pept 1542 pg/mL (0-450)
[2021-08-27] MEDS: sodium chloride 0.9% 500 ML 999 ML IV (00:45)
[2021-08-27] MEDS: sodium chloride 0.9% 1,000 ML 999 ML IV (01:00)
[2021-08-27 02:32] LABS: Lactate (Lactic Acid level) 1.6 mmol/L (0.5-2.2)
--- NOTE | 2021-08-27 03:15 | PM.HP ---
Providers/Chief Complaint Admitting Physician: Luis Steele Primary Care Provider: Luzmaria Andrea MD Chief Complaint: CP History of Present Illness 76 year old with past medical history of general anxiety disorder, chronic stage 3 kidney disease with baseline creatinine of 1.3-.1.5, hypertension, dyslipidemia, BARBIE on nightly CPAP, coronary artery disease s/p CABG (1998) who presented to ER with chest pain and palpitation. Patient started he had gotten in to a verbal altercation with neighbor during which time his symptoms started. No lightheadedness, dizziness, or shortness of breath. No fever, chills, nausea or vomiting. Upon arrival his lab work up showed a WBC of 6.4, Hemoglobin of 9.8, hematocrit of 29.5. D-dimer of 0.69. Sodium of 138, potassium of 4.0, chloride of 103, bicarb of 21, BUN of 19 and a creatinine of 1.5. AST of 58, ALT of 41, and ALP of 62. Troponin T baseline 435, with repeat of 501 at 2hr. Delta 66.1. ProBNP of 1542. Incidentally noted to have COVID19 rapid antigen. Of note patient has received full 3 dose vaccinations. Chest x-ray showed bilateral lower lobe atelectasis vs infiltrates. ER Course Patient was noted to have newly diagnosed atrial flutter with HR of 152 on initial EKG. He was given cardizem 20 mg IV x 1, Lovenox 80 mg SQ x1, Metoprolol 5 mg IV x1. Rate continued to be elevated. Started to become hypotensive during which he was given NS bolus 1Lx2. He was then given amiodarone 150 mg IV x 1after which he converted to NSR with intermittent episode of bradycardia. Patient stated he felt much better at the time of my eval. Review of Systems General: Reports: 10 or more systems reviewed and unremarkable except in HPI and below Medications/Allergies Home Medications Medication Instructions Recorded Confirmed Last Taken Type ketoconazole 2 % topical cream 1 applic TOPICAL PRN 08/06/19 08/26/21 Unknown History albuterol sulfate 90 mcg/actuation 2 puff INHALATION Q6H PRN #8.5 g 05/21/21 08/27/21 Unknown Rx aerosol inhaler amlodipine 5 mg tablet 5 mg PO BID #180 tab 05/21/21 08/26/21 07/16/21 09:00 Rx furosemide 20 mg tablet 10 mg PO QAM #45 tab 05/21/21 08/26/21 07/16/21 Rx isosorbide mononitrate 30 mg 30 mg PO BID #180 tab 05/21/21 08/26/21 07/16/21 09:00 Rx tablet,extended release 24 hr aspirin [Adult Low Dose Aspirin] 81 mg PO QAM 07/16/21 08/26/21 07/16/21 History cetirizine [Zyrtec] 10 mg PO QAM 07/16/21 08/26/21 07/16/21 History cholecalciferol (vitamin D3) 1,000 unit PO QAM 07/16/21 08/26/21 07/16/21 History clopidogrel 75 mg PO QAM 07/16/21 08/26/21 07/16/21 History donepezil 10 mg PO QPM 07/16/21 08/26/21 07/15/21 History finasteride 5 mg PO QPM 07/16/21 08/26/21 07/15/21 History fluticasone propionate [Allergy 2 spray INTRANASAL QAM 07/16/21 08/26/21 07/16/21 History Relief (fluticasone)] lansoprazole [Prevacid] 30 mg PO QPM 07/16/21 08/26/21 07/15/21 History magnesium 250 mg PO DAILY 07/16/21 08/26/21 Unknown History mecobalamin (vitamin B12) 1,000 mcg SUBLINGUAL QAM 07/16/21 08/26/21 07/16/21 History montelukast 10 mg PO QAM 07/16/21 08/26/21 07/16/21 History polyethylene glycol 3350 [Miralax] 17 g PO QAM 07/16/21 08/26/21 07/16/21 History potassium gluconate 595 mg PO QAM 07/16/21 08/26/21 07/16/21 History rosuvastatin 10 mg PO QPM 07/16/21 08/26/21 07/15/21 History trazodone 150 mg PO BEDTIME 07/16/21 08/26/21 07/15/21 History clonazepam 1 mg tablet 1 mg PO DAILY #30 tab 08/20/21 08/26/21 Unknown Rx losartan 50 mg tablet 50 mg PO QAM #90 tab 08/20/21 08/27/21 Unknown Rx Allergies Allergy/AdvReac Type Severity Reaction Status Date / Time No Known Allergies Allergy Verified 07/26/21 14:58 PFSH Acute PFSH: Medical History Acute coronary syndrome Anxiety BPH w urinary obs/LUTS Chest pain Chronic kidney disease (CKD) stage G3a/A1, moderately decreased glomerular filtration rate (GFR) between 45-59 mL/min/1.73 square meter and albuminuria creatinine ratio less than 30 mg/g Chronic renal disease, stage 3, moderately decreased glomerular filtration rate (GFR) between 30-59 mL/min/1.73 square meter Chronic ulcerating interstitial cystitis COPD (chronic obstructive pulmonary disease) Coronary artery disease involving autologous vein coronary bypass graft without angina pectoris COVID-19 vaccine administered 2 doses plus booster Depression Erectile dysfunction Ex-smoker Gastro-esophageal reflux disease with esophagitis Glaucoma Hyperlipemia, mixed Hypertension Idiopathic progressive neuropathy Left carotid bruit Macrocytic anemia Memory loss Myocardial infarct, old Obstructive sleep apnea Osteoarthritis Raynaud's disease ST elevation (STEMI) myocardial infarction Surgical History H/O vasectomy S/P angioplasty S/P coronary artery bypass graft x 2 S/P cystoscopy Family History Mother CAD (coronary artery disease) Father CAD (coronary artery disease) Sister CAD (coronary artery disease) Family/Other Hypertension Social History Quit status (tobacco): has quit using tobacco Year quit tobacco: 1988 [id number] Second hand smoke exposure: No Alcohol intake: never Lives independently: Yes Household members: spouse Housing: House Marital status: service: No Current occupational status: retired Pets and animals: No History of recent travel: No Current gender identity: Male Special evelyn needs: No Vitals/I&O/Wt Last Vital Signs Temp 98.4 F 08/26/21 21:41 Pulse 63 08/27/21 02:45 Resp 14 08/27/21 02:45 BP 113/71 01/17/22 02:45 Pulse Ox 99 08/27/21 02:45 08/26/21 08/26/21 08/27/21 14:59 22:59 06:59 Intake Total 1999 Balance 1999 Weight last 48 hrs Weight 89.675 kg Weight 83.915 kg Physical Exam Narrative: EXAM NARRATIVE: General: Alert, Awake, NAD on cpap HEENT: EOMI CVS: Bradycardia Chest: Non-labored respiration Abd; Soft, NT, ND Ext; No edema Data : 08/26/21 23:55 08/26/21 21:50 A&P Assessment and plan (1) Atrial flutter: Status: Acute (2) Atrial flutter with rapid ventricular response: Status: Acute (3) COVID-19: Status: Acute (4) Coronary artery disease involving autologous vein coronary bypass graft without angina pectoris: Status: Acute (5) Hypertension: Status: Chronic Qualifiers: Hypertension type: essential hypertension Qualified Code(s): I10 - Essential (primary) hypertension (6) Hyperlipemia, mixed: Status: Chronic (7) Raynaud's disease: Status: Chronic Qualifiers: Raynaud?s-associated gangrene presence: without gangrene Qualified Code(s): I73.00 - Raynaud's syndrome without gangrene Additional A&P Information Newly diagnosed Atrial Flutter Denied prior history Cardizem 20 mg IV x1 Metoprolol 5 mg IV x 1 Amiodarone 150 mg IV x 1 Lovenox 90 mg SQ BID Cardiology consulted in ER to see patient in am Check TSH with reflex TTECho ordered Elevated Troponin / CAD with hx of CABG Likely due to rapid rate - type 2 NSTEMI Plavix 75 mg PO daily Lovenox 1mg/kg/BID Resume Statin Follow up on cardiology consult Imdur 30 mg O daily NPO -> NS at 50 cc/hr Monitor on Telemetry 07/26 - Cardiac Cath showed : Patent circumflex, 50% distal left main, RM to LAD was patent, SVG to RCA was diffusely diseased and occluded proximally, no SVG to circumflex visualized. COVID-19 infection Immunized with all 3 shots Afebrile currently Droplet/Contat precautions Chronic stage 3 kidney disease At baseline cr - 1.3-1.5 Currently 1.5 BMP in am Holding diuretics Hypertension Holding BP meds Soft Pressure currently Obstructive Seep Apnea Continue CPAP at home settings Dyslipidemia Continue statin DVT prophylaxis Lovenox as noted above. Verify remainder of home meds and resume in am Attestations Medical Necessity Statement*: Anticipate over 2 midnight stay in hospital for eval and treatment Time Spent in Patient Care: Greater than 35 minutes (>than 50% of time spent in counselling and/or direct pt care on unit). Coding Level of Care Code Acute Perl Programmer for Judson Fwd Diagnoses Atrial flutter I48.92 Atrial flutter with rapid ventricular response I48.92 COVID-19 U07.1 Coronary artery disease involving autologous vein coronary bypass graft without angina pectoris I25.810 Hypertension I10 Hypertension type: essential hypertension Hyperlipemia, mixed E78.2 Raynaud's disease I73.00 Raynaud?s-associated gangrene presence: without gangrene
--- NOTE | 2021-08-27 03:42 | ECG_ITS ---
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1945 Requested By: Tiffanie Branch Order Number: [id number] Reading MD: MARTHA SELF Measurements Intervals [place] Rate: 45 P: NV: QRS: -82 QRSD: 193 T: 61 QT: 515 QTc: 447 Interpretive Statements complete heart block LEFT AXIS DEVIATION [QRS AXIS < -30] RIGHT BUNDLE BRANCH BLOCK [120+ ms QRS DURATION, UPRIGHT V1, 40+ ms S IN I/aVL/V4/V5/V6] Compared to ECG 08/26/2021 22:57:14 Left-axis deviation now present Right bundle-branch block now present Atrial flutter no longer present Ventricular premature complex(es) no longer present Left bundle-branch block no longer present Electronically Signed On 08-27-2021 20:57:33 HAND BENDER by MARTHA SELF [id number]
[2021-08-27 06:32] LABS: Troponin 5 6HR 1103 ng/L (0-15); Troponin 5 6HR Delta 668 ng/L (0-12)
[2021-08-27] MEDS: dexamethasone 10 mg/mL INJ 6 MG IVP (08:48)
[2021-08-27] MEDS: clopidogrel 75 mg Tablet PO (08:49)
[2021-08-27] MEDS: apixaban 5 mg Tablet 2.5 MG PO ×2 (08:51→20:02)
[2021-08-27] MEDS: acetaminophen 325 mg Tablet 650 MG PO (08:52)
[2021-08-27] MEDS: sodium chloride 0.9% 1,000 ML 75 ML IV (08:53)
--- NOTE | 2021-08-27 09:25 | P.CONIM_ITS ---
Providers/Reason For Consult Consulting Physician/Specialty*: Cardiology Reason for Consult*: Non-ST elevation WY, atrial flutter, tachybradycardia syndrome Attending Physician: Brittni Calderon MD Primary Care Provider: Luzmaria Andrea MD History of Present Illness History of Present Illness Chris Thompson is a 76 year old male past medical history significant for severe multivessel coronary artery disease history of CABG 1998 recently underwent left heart cath few days ago for non-ST elevation W[place]. He was noted to have chronically occluded mid LAD more than 50% distal left main and moderate without significant stenosis nondominant circumflex, RCA was chronically occluded in proximal segment. SVG to RCA was noted to be occluded which was the culprit vessel. RM to LAD was patent no graft to circumflex was noted. Yesterday patient presented with chest pressure and palpitation. He was noted to be in atrial flutter with rapid ventricular response. He was given IV calcium channel donato which dropped his blood pressure he was given IV fluid followed by IV amiodarone which converted him to sinus rhythm later degenerated sinus bradycardia. Chest pain improved troponin was more than 400. He was also noted to be COVID-positive. It is the reason we have been asked to come and assess him in order to control his heart rate as well as for non-ST ovation [place] with Review of Systems General: Reports: 10 or more systems reviewed and unremarkable except in HPI and below Const: Denies: fever(s), chills, body aches or change in appetite Eyes: Denies: blurry vision or eye discomfort ENMT: Denies: throat pain or dental pain Card: Reports: chest pain and palpitations Resp: Denies: dyspnea GI: Denies: abdominal pain, nausea, vomiting or diarrhea : Denies: dysuria Musc: Denies: neck pain or back pain Skin/Breast: Denies: rash Neuro: Denies: headache(s) Psych: Denies: depression Mickey/Lymph: Denies: easy bruising All/Imm: Denies: urticaria Medications/Allergies Home Medications Medication Instructions Recorded Confirmed Last Taken Type ketoconazole 2 % topical cream 1 applic TOPICAL PRN 08/06/19 08/26/21 Unknown History albuterol sulfate 90 mcg/actuation 2 puff INHALATION Q6H PRN #8.5 g 05/21/21 08/27/21 Unknown Rx aerosol inhaler amlodipine 5 mg tablet 5 mg PO BID #180 tab 05/21/21 08/26/21 07/16/21 09:00 Rx furosemide 20 mg tablet 10 mg PO QAM #45 tab 05/21/21 08/26/21 07/16/21 Rx isosorbide mononitrate 30 mg 30 mg PO BID #180 tab 05/21/21 08/26/21 07/16/21 09:00 Rx tablet,extended release 24 hr aspirin [Adult Low Dose Aspirin] 81 mg PO QAM 07/16/21 08/26/21 07/16/21 History cetirizine [Zyrtec] 10 mg PO QAM 07/16/21 08/26/21 07/16/21 History cholecalciferol (vitamin D3) 1,000 unit PO QAM 07/16/21 08/26/21 07/16/21 History clopidogrel 75 mg PO QAM 07/16/21 08/26/21 07/16/21 History donepezil 10 mg PO QPM 07/16/21 08/26/21 07/15/21 History finasteride 5 mg PO QPM 07/16/21 08/26/21 07/15/21 History fluticasone propionate [Allergy 2 spray INTRANASAL QAM 07/16/21 08/26/21 07/16/21 History Relief (fluticasone)] lansoprazole [Prevacid] 30 mg PO QPM 07/16/21 08/26/21 07/15/21 History magnesium 250 mg PO DAILY 07/16/21 08/26/21 Unknown History mecobalamin (vitamin B12) 1,000 mcg SUBLINGUAL QAM 07/16/21 08/26/21 07/16/21 History montelukast 10 mg PO QAM 07/16/21 08/26/21 07/16/21 History polyethylene glycol 3350 [Miralax] 17 g PO QAM 07/16/21 08/26/21 07/16/21 History potassium gluconate 595 mg PO QAM 07/16/21 08/26/21 07/16/21 History rosuvastatin 10 mg PO QPM 07/16/21 08/26/21 07/15/21 History trazodone 150 mg PO BEDTIME 07/16/21 08/26/21 07/15/21 History clonazepam 1 mg tablet 1 mg PO DAILY #30 tab 08/20/21 08/26/21 Unknown Rx losartan 50 mg tablet 50 mg PO QAM #90 tab 08/20/21 08/27/21 Unknown Rx Allergies Allergy/AdvReac Type Severity Reaction Status Date / Time No Known Allergies Allergy Verified 07/26/21 14:58 Current Medications Generic Name Dose Route Start Last Admin Trade Name Freq PRN Reason Stop Dose Admin Acetaminophen 650 mg 08/27/21 05:14 08/27/21 08:52 Acetaminophen 325 Mg Tablet PO 650 mg Q6H PRN Administration Mild/Mod Pain Or Temp >/= 101 Apixaban 2.5 mg 08/27/21 07:30 08/27/21 08:51 Apixaban 5 Mg Tablet PO 2.5 mg BID@0900,2100 ROSEMARY Administration Clopidogrel Bisulfate 75 mg 08/27/21 09:00 08/27/21 08:49 Clopidogrel 75 Mg Tablet PO 75 mg DAILY ROSEMARY Administration Dexamethasone 6 mg 08/27/21 07:30 08/27/21 08:48 Dexamethasone 10 Mg/Ml Inj IVP 6 mg Q24H ROSEMARY Administration Sodium Chloride 1,000 mls @ 75 mls/hr 08/27/21 05:15 08/27/21 08:53 Sodium Chloride 0.9% IV 75 mls/hr .[id number] ROSEMARY Administration PFSH Acute PFSH: Medical History Acute coronary syndrome Anxiety BPH w urinary obs/LUTS Chest pain Chronic kidney disease (CKD) stage G3a/A1, moderately decreased glomerular filtration rate (GFR) between 45-59 mL/min/1.73 square meter and albuminuria creatinine ratio less than 30 mg/g Chronic renal disease, stage 3, moderately decreased glomerular filtration rate (GFR) between 30-59 mL/min/1.73 square meter Chronic ulcerating interstitial cystitis COPD (chronic obstructive pulmonary disease) Coronary artery disease involving autologous vein coronary bypass graft without angina pectoris COVID-19 vaccine administered 2 doses plus booster Depression Erectile dysfunction Ex-smoker Gastro-esophageal reflux disease with esophagitis Glaucoma Hyperlipemia, mixed Hypertension Idiopathic progressive neuropathy Left carotid bruit Macrocytic anemia Memory loss Myocardial infarct, old Obstructive sleep apnea Osteoarthritis Raynaud's disease ST elevation (STEMI) myocardial infarction Surgical History H/O vasectomy S/P angioplasty S/P coronary artery bypass graft x 2 S/P cystoscopy Family History Mother CAD (coronary artery disease) Father CAD (coronary artery disease) Sister CAD (coronary artery disease) Family/Other Hypertension Social History Quit status (tobacco): has quit using tobacco Year quit tobacco: 1988 [id number] Second hand smoke exposure: No Alcohol intake: never Lives independently: Yes Household members: spouse Housing: House Marital status: service: No Current occupational status: retired Pets and animals: No History of recent travel: No Current gender identity: Male Special evelyn needs: No Dietary Habits: Current diet type/program: regular Caffeine: Yes Vitals/I&O/Wt Last Vital Signs Temp 98.4 F 08/26/21 21:41 Pulse 76 08/27/21 05:33 Resp 12 08/27/21 02:55 BP 104/68 08/27/21 02:55 Pulse Ox 98 08/27/21 02:55 08/26/21 08/27/21 08/27/21 22:59 06:59 14:59 Intake Total 1999 Balance 1999 Weight last 48 hrs Weight 197 lb 11.2 oz Weight 197 lb 11.2 oz Weight 185 lb Physical Exam Narrative: EXAM NARRATIVE: Please note that due to COVID situation I have not examined the patient, A&P Assessment and plan (1) Atrial flutter with rapid ventricular response: Patient is in sinus rhythm he had episodes of complete heart block with junctional escape but it was soon after he cardioverted. Currently he appears to be stable continue to monitor we will switch him to beta-donato. I will discontinue amiodarone for now. I will also discontinue Cardizem renal donato Status: Acute (2) Non-ST elevation [place] (NSTEMI): Continue to manage him medically patient recently had angiogram noted to have occluded SVG to RCA graft which was a culprit medical management was suggested. This time increasing cardio markers could be due to atrial flutter with rapid ventricle response and ischemia in the area of RCA not amenable to intervention therefore we will still treat him medically he appeared to be stable. Status: Acute (3) COVID-19: As per Status: Acute (4) Hypertension: Well-controlled continue medicine. Status: Chronic Qualifiers: Hypertension type: essential hypertension Qualified Code(s): I10 - Essential (primary) hypertension Consult Attestations Medical Necessity Statement: Patient require continuation of hospitalization for above defined care Coding Level of Care Code New Pt Acute Transition Program Manager for Chg Fwd Patient Type New History Detailed Exam Detailed Medical Decision Making Moderate Complexity Diagnoses Atrial flutter with rapid ventricular response I48.92 Non-ST elevation [place] (NSTEMI) I21.4 COVID-19 U07.1 Hypertension I10 Hypertension type: essential hypertension
--- NOTE | 2021-08-27 12:28 | PM.MISC ---
Miscellaneous Note Note: This morning patient was hemodynamically stable heart rate in 70s, blood pressure stable No active chest pain shortness of breath confusion or active respiratory distress Case discussed with Dr. Lopez He was saturating well on 2 L nasal cannula S1, S2 sinus rhythm Looks euvolemic Comfortable Nonfocal neuro exam Abdomen soft No signs of edema Patient had chronically occluded SVG graft and RCA With tachyarrhythmia new onset A. fib RVR he mostly has type II ND, COVID-19 related myocarditis? Monitor for now, Continue remdesivir Decadron regimen for COVID-19 Discontinue Lovenox and switch to Eliquis 2.5 mg twice daily for new onset A. fib which was related to hypoxia Discontinue IV fluids, able to tolerate p.o. diet Full code If patient clinically remained stable by discharge him in next 48 hours
[2021-08-27] MEDS: remdesivir 200 MG in sodium chloride 0.9% (100 ml) 60 ML 100 MG IV (14:45)
[2021-08-27] MEDS: finasteride 5 mg Tablet PO (20:02)
[2021-08-28] VITALS (8 sets, daily range): BP systolic 141–159; BP diastolic 80–85; PULSE 18–68; RESP 17–18; TEMP 36.2–37.1; O2SAT 94–98
--- NOTE | 2021-08-28 02:23 | PC.NURSE ---
Upon entering patient's room at beginning of shift, patient becomes angry with nurse and states Look at this, no one came and got my dinner tray, my urinal is full, my sheets are soaked because I have to use this damn urinal, and I am out of ice water. Patient's dinner tray removed, urinal emptied, complete linen change provided, and ice water provided. Throughout shift patient has been rounded on frequently by nurse and ROOFER HELPER and RT, but continues to complain that no one is checking on him and no one is emptying his urinal. Urinal has been emptied multiple times (please see intake and output charting). Patient pulled telemetry wires, pulse oximetry wire, gown, and Bipap off. Patient refusing to have gown or Bipap put back on, however telemetry and pulse ox wires were replaced. Patient has been rounded on frequently throughout shift and has bed alarm set. Patient has been oriented to his call light and has call light within reach.
[2021-08-28 03:30] LABS: Hematocrit 32.1 % (42.0-52.0); Hemoglobin 10.8 g/dL (11.7-16.6); Lymphocytes # 1.1 10^3/uL (0.8-4.8); Lymphocytes % 15.6 %; Mean Corpuscular HGB Conc 33.6 g/dL (30.0-36.0); Mean Corpuscular Hemoglobin 33.8 pg (28.0-34.0); Mean Corpuscular Volume 100.3 fl (80-94); Mean Platelet Volume 10.8 fL (7.4-10.4); Monocytes # 0.8 10^3/uL (0.2-0.9); Neutrophils # 5.09 10^3/uL (1.8-7.7); Nucleated Red Blood Cells % 0 %; Platelet Count 167 10^3/cmm (130-400); Red Cell Distribution Width 12.9 % (12.1-15.1)
[2021-08-28 03:58] LABS: Alanine Aminotransferase 57 U/L (0-41); Albumin Level 3.5 g/dL (3.5-5.2); Alkaline Phosphatase 57 IU/L (40-130); Anion Gap 15.4 (5-19); Aspartate Amino Transferase 101 U/L (0-40); Blood Urea Nitrogen 24 mg/dL (8-23); Calcium 7.9 mg/dL (8.5-10.5); Carbon Dioxide 19 mmol/L (22-29); Chloride 106 mmol/L (98-107); Globulin 2.5 g/dL (1.3-4.6); Glucose 114 mg/dL (65-115); Osmolality Calculated 287 mOsm/kg (285-295); Potassium 4.4 mmol/L (3.5-5.1); Sodium 136 mmol/L (136-145); Total Bilirubin 0.2 mg/dL (0.15-1.2)
[2021-08-28] MEDS: apixaban 5 mg Tablet 2.5 MG PO (09:51)
[2021-08-28] MEDS: clopidogrel 75 mg Tablet PO (09:51)
[2021-08-28] MEDS: dexamethasone 10 mg/mL INJ 6 MG IVP (09:52)
--- NOTE | 2021-08-28 11:04 | ECG_ITS ---
[facility] Test Date: 2021-08-28 Pat Name: Chris Thompson Department: Room: 103 Gender: Male Audio/Video Technician: : 1945 Requested By: Brittni Calderon Order Number: [id number] Juan MD: Ana Mac M.D. Measurements Intervals [place] Rate: 52 P: 28 MN: 225 QRS: 38 QRSD: 105 T: 57 QT: 438 QTc: 408 Interpretive Statements SINUS BRADYCARDIA WITH FIRST DEGREE AV BLOCK ANTEROSEPTAL MYOCARDIAL INFARCTION , OF INDETERMINATE AGE [40+ ms Q WAVE IN V1-V4] Compared to ECG 08/27/2021 00:56:18 First degree AV block now present Myocardial infarct finding now present AV block, complete (third-degree) no longer present Left-axis deviation no longer present Right bundle-branch block no longer present Electronically Signed On 08-29-2021 13:54:54 UPHOLSTERY AUTO TRIMMER by Ana Mac M.D. [id number]
--- NOTE | 2021-08-28 11:04 | PM.DCS ---
Discharge Providers Date of Admission: 08/27/21 01:24 Date of Discharge: August 28, 2021 Attending Provider at Admission: Luis Steele Attending Provider at Discharge: Brittni Calderon MD Primary Care Provider: Luzmaria Andrea MD Diagnoses at Discharge Discharge Diagnosis (1) Atrial flutter with rapid ventricular response: Status: Acute (2) Non-ST elevation [place] (NSTEMI): Status: Acute (3) COVID-19: Status: Acute (4) Hypertension: Status: Chronic Qualifiers: Hypertension type: essential hypertension Qualified Code(s): I10 - Essential (primary) hypertension Reason for Visit Reason for Visit: CP Hospital Course Hospital Course Admission note by 76 year old with past medical history of general anxiety disorder, chronic stage 3 kidney disease with baseline creatinine of 1.3-.1.5, hypertension, dyslipidemia, BARBIE on nightly CPAP, coronary artery disease s/p CABG (1998) who presented to ER with chest pain and palpitation. Patient started he had gotten in to a verbal altercation with neighbor during which time his symptoms started. No lightheadedness, dizziness, or shortness of breath. No fever, chills, nausea or vomiting. Upon arrival his lab work up showed a WBC of 6.4, Hemoglobin of 9.8, hematocrit of 29.5. D-dimer of 0.69. Sodium of 138, potassium of 4.0, chloride of 103, bicarb of 21, BUN of 19 and a creatinine of 1.5. AST of 58, ALT of 41, and ALP of 62. Troponin T baseline 435, with repeat of 501 at 2hr. Delta 66.1. ProBNP of 1542. Incidentally noted to have COVID19 rapid antigen. Of note patient has received full 3 dose vaccinations. Chest x-ray showed bilateral lower lobe atelectasis vs infiltrates. ER Course Patient was noted to have newly diagnosed atrial flutter with HR of 152 on initial EKG. He was given cardizem 20 mg IV x 1, Lovenox 80 mg SQ x1, Metoprolol 5 mg IV x1. Rate continued to be elevated. Started to become hypotensive during which he was given NS bolus 1Lx2. He was then given amiodarone 150 mg IV x 1after which he converted to NSR with intermittent episode of bradycardia Hospital course Patient was admitted for management of COVID-19 pneumonia, he he was requiring 2 L of oxygen throughout his hospitalization, he was started on Decadron and remdesivir, his heart rate was below 60, EKG revealed complete heart block, case was discussed with furniture mover helper Dr. Jose who recommended discharging patient on 08/28 with event monitor, instructions were given to the patient regarding indication of pacemaker placement however he remained asymptomatic throughout his hospitalization. Bradycardia is associated with underlying complete heart block. He was not kept on any AV kailash blocking agent which was given in the ER for atrial flutter/fibrillation. For transient atrial fibrillation, he was not discharged on anticoagulating agent. His rhythm remained sinus. Normal TSH. Electrolytes were replenished. He does have chronically occluded graft/SVG of right coronary vessel as per previous cath report. His troponin leakage is most likely type II LA related to tachyarrhythmia at the time of admission he remained chest pain-free, no shortness of breath, nausea, vomiting or confusion. Dr. Jose recommended event monitor for 21 days and avoiding any AV kailash blocking agent for now for complete heart block. Event monitor will be mailed to his home because of his COVID-19 pneumonia. Physical Exam Narrative: EXAM NARRATIVE: Patient is saturating well on 2 L nasal cannula No active chest pain or shortness of breath S1, S2 sinus rhythm Heart rate in 60s Telemetry reviewed Abdomen soft Awake and alert EOMI, PERRLA Discharge Data Data Completed and Pending: Completed Studies During Hospitalization Category Date Time Status XR chest 1V gisselle ble [id number] Stat Exams 08/26/21 21:42 Completed Labs from last 24 hours 08/28/21 08/28/21 03:07 03:07 WBC 7.0 RBC 3.20 L Hgb 10.8 L Hct 32.1 L MCV 100.3 H MCH 33.8 MCHC 33.6 RDW 12.9 Plt Count 167 MPV 10.8 H Neut % (Auto) 73.0 Lymph % (Auto) 15.6 [place] % (Auto) 11.0 Eos % (Auto) 0.0 Baso % (Auto) 0.0 Neut # (Auto) 5.09 Lymph # (Auto) 1.1 [place] # (Auto) 0.8 Eos # (Auto) 0.0 Baso # (Auto) 0.0 Nucleated RBC % (a uto) 0 Nucleated RBCs # 0.0 Sodium 136 Potassium 4.4 Chloride 106 Carbon Dioxide 19 L Anion Gap 15.4 BUN 24 H Creatinine 1.5 H GFR Calculation Not Reportable Glucose 114 Calculated Osmolal ity 287 Calcium 7.9 L Total Bilirubin 0.2 AST 101 H ALT 57 H Alkaline Phosphata se 57 Total Protein 6.0 L Albumin 3.5 Globulin 2.5 Vitals: Last Vital Signs Temp 98.2 F 08/28/21 03:43 Pulse 66 08/28/21 03:43 Resp 18 08/28/21 03:43 BP 156/82 08/28/21 03:43 Pulse Ox 97 08/28/21 03:43 Discharge Plan Discharge Patient Disposition: Home Condition: Stable Prescriptions: New albuterol sulfate 90 mcg/actuation HFA aerosol inhaler 2 inh inhalation Q6H PRN (Reason: shortness of breath or wheezing) Qty: 8.5 RF: 1 Continued amlodipine 5 mg tablet 5 mg PO BID Qty: 180 RF: 2 albuterol sulfate [ProAir HFA] 90 mcg/actuation HFA aerosol inhaler 2 puff inhalation Q6H PRN (Reason: shortness of breath or wheezing) Qty: 8.5 RF: 2 furosemide 20 mg tablet 10 mg PO QAM Qty: 45 RF: 2 isosorbide mononitrate 30 mg tablet extended release 24 hr 30 mg PO BID Qty: 180 RF: 2 losartan 50 mg tablet 50 mg PO QAM Qty: 90 RF: 3 ketoconazole 2 % cream 1 applic TOPICAL PRN RF: 0 clonazepam 1 mg tablet 1 mg PO DAILY Qty: 30 RF: 2 magnesium 250 mg Tablet 250 mg PO DAILY RF: 0 potassium gluconate 595 mg (99 mg) Tablet 595 mg PO QAM RF: 0 cetirizine [Zyrtec] 10 mg tablet 10 mg PO QAM RF: 0 donepezil 10 mg tablet 10 mg PO QPM RF: 0 trazodone 150 mg tablet 150 mg PO BEDTIME RF: 0 lansoprazole [Prevacid] 30 mg capsule,delayed release(DR/EC) 30 mg PO QPM RF: 0 montelukast 10 mg tablet 10 mg PO QAM RF: 0 polyethylene glycol 3350 [Miralax] 17 gram/dose powder 17 g PO QAM RF: 0 fluticasone propionate [Allergy Relief (fluticasone)] 50 mcg/actuation spray,suspension 2 spray INTRANASAL QAM RF: 0 finasteride 5 mg tablet 5 mg PO QPM RF: 0 cholecalciferol (vitamin D3) 25 mcg (1,000 unit) capsule 1,000 unit PO QAM RF: 0 rosuvastatin 10 mg tablet 10 mg PO QPM RF: 0 mecobalamin (vitamin B12) 1,000 mcg tablet,disintegrating 1,000 mcg SUBLINGUAL QAM RF: 0 clopidogrel 75 mg tablet 75 mg PO QAM Qty: 30 RF: 2 Adult Low Dose Aspirin 81 mg tablet,delayed release (DR/EC) 81 mg PO QAM Qty: 30 RF: 2 Discharge Orders: Discharge Order (Routine); Ordered 08/28/21 Ordered By: Brittni Calderon Other Ambulatory Orders: MCT/Event Monitor 21 Days (Routine) Timeframe: 21 Days Facility: [facility] - Location: Radiology Ordered By: Brittni Calderon DME: Oxygen (Order) Location: None Selected Ordered By: Brittni Calderon Referrals: Idalia Schmid FNP [Nurse Practitioner] - 1 month (Please follow-up with Idalia Schmid on at 12:45P.M. If you have have any questions or need to reschedule. Please call Also, [facility] will send you an 21 day Event Moniter through the mail. Instructions will be sent the package. If you have any questions please call ) Luzmaria Andrea MD [Primary Care Provider] - (Please follow-up with Luzmaria Andrea on Sep.11 at 1:20P.M. If you have any questions or need to reschedule. Please call ) Discharge Diet: Cardiac Discharge Activity: Increase activity as tolerated Patient Instructions: Albuterol (By breathing), COVID-19 (Coronavirus Disease 2019) (DC) Activity Restrictions/Additional Instructions: You will be given an event monitor to detect your heart rate and rhythm you have complete heart block please do not use metoprolol or Coreg In case of any chest pain, shortness of breath continuous improvement he might need a pacemaker in the near future Will need to quarantine for at least 20 days Discharge Attestations Time Spent in Discharge Care*: less than 30 min Status at Discharge: Cognitive status at discharge: cognitively intact, Behavioral status at discharge: cooperative, Quality Metrics Clinical Quality Measures During this hospital stay, did patient experience: None Coding Level of Care Code Acute Chg FW DC note Diagnoses Atrial flutter with rapid ventricular response I48.92 Non-ST elevation [place] (NSTEMI) I21.4 COVID-19 U07.1 Hypertension I10 Hypertension type: essential hypertension
== END 2021-08-28 16:30 | disposition home or self-care (01) | DRG 177 ==
LOC: ER 08-27 01:53 → CSU 08-27 02:25
PROVIDERS: Admitting Provider Hospitalist; Emergency Provider Emergency Medicine; PCP Family Medicine; Visit Provider Internal Medicine
DX: U07.1 COVID-19 (principal); I21.A1 Myocardial infarction type 2; J12.82 Pneumonia due to coronavirus disease 2019; I48.92 Unspecified atrial flutter; I25.810 Atherosclerosis of coronary artery bypass graft(s) without angina pectoris; I44.2 Atrioventricular block, complete; I12.9 Hypertensive chronic kidney disease with stage 1 through stage 4 chronic kidney disease, or unspecified chronic kidney disease; N18.31 Chronic kidney disease, stage 3a; I48.91 Unspecified atrial fibrillation; I25.2 Old myocardial infarction; E78.2 Mixed hyperlipidemia; G47.33 Obstructive sleep apnea (adult) (pediatric); I95.9 Hypotension, unspecified; R00.1 Bradycardia, unspecified; J44.9 Chronic obstructive pulmonary disease, unspecified; I73.00 Raynaud's syndrome without gangrene; Z95.1 Presence of aortocoronary bypass graft; Z79.02 Long term (current) use of antithrombotics/antiplatelets; Z79.82 Long term (current) use of aspirin; Z82.49 Family history of ischemic heart disease and other diseases of the circulatory system; Z87.891 Personal history of nicotine dependence
CPT/HCPCS: 36415; 71045; 80053; 83605; 83880; 84484; 85025; 85378; 87426; 93005; 94660; 96365; 96366; 96367; 96372; 96375; 99291; J0282; J1100; J1650; J2270; J2405; J3490; J7030; J7040; J7060

== ENCOUNTER → 2021-10-10 08:51 | Outpatient (BNVA) | payer MEDICARE, OTHER, SELFPAY | PROVIDERS: PCP Family Medicine; Visit Provider Internal Medicine | DX: D64.9 Anemia, unspecified (principal); N18.30 Chronic kidney disease, stage 3 unspecified; I12.9 Hypertensive chronic kidney disease with stage 1 through stage 4 chronic kidney disease, or unspecified chronic kidney disease | CPT/HCPCS: 80048; 81003; 82040; 82310; 83550; 83735; 83970; 85018 ==

== ENCOUNTER → 2021-10-30 15:20 | Outpatient (BNVA) | payer MEDICARE, OTHER, SELFPAY | PROVIDERS: PCP Family Medicine; Visit Provider Internal Medicine | DX: I44.2 Atrioventricular block, complete (principal); I25.2 Old myocardial infarction; Z09 Encounter for follow-up examination after completed treatment for conditions other than malignant neoplasm | CPT/HCPCS: 99214 ==

== ENCOUNTER → 2021-11-09 10:20 | Outpatient (BNVA) | payer MEDICARE, OTHER, SELFPAY | PROVIDERS: PCP Family Medicine; Visit Provider Urology | DX: N30.10 Interstitial cystitis (chronic) without hematuria (principal) | CPT/HCPCS: 81003 ==

== ENCOUNTER 2021-11-19 07:24 | Day surgery (SDC) | payer MEDICARE, OTHER, SELFPAY ==
[2021-11-16 15:12] VITALS: BMI 28.3
[2021-11-19] VITALS (9 sets, daily range): BP systolic 91–116; BP diastolic 58–73; PULSE 59–77; RESP 6–18; TEMP 36.3–36.7; O2SAT 94–99
[2021-11-19] MEDS: sodium chloride 0.9% 1,000 ML 30 ML IV (08:33)
--- NOTE | 2021-11-19 08:51 | ANES.PREANE2 ---
Pre-Anesthetic Assessment Height/Weight: Height 1.75 m Weight 87.09 kg Temp Pulse Resp BP Pulse Ox 97.4 F L 63 16 91/58 95 11/19/21 07:50 11/19/21 07:50 11/19/21 07:50 11/19/21 07:50 11/19/21 07:50 Preop Diagnosis: Interstitial cystitis with Hunner's ulcer Operation Date: 11/19/21 08:50 Proposed Procedures p Cystoscopy 71938/88118/n30.10(Not Applicable) - Fei Moore MD s Bladder Hydrodistention(Not Applicable) - Fei Moore MD s Ulcer Fulguration(Not Applicable) - Fei Moore MD Familial anesthetic complications: None Was Beta Ana taken within 24 hours: N/A Was Clonidine taken within 24 hours: N/A Last intake: Intake Last Liquid Date 11/18/21 Last Liquid Time 20:00 Last Solid Date 11/18/21 Last Solid Time 13:35 Social No alcohol and No tobacco Exam alert, oriented x 3, clear to auscultation bilaterally and regular rate & rhythm Airway Submandibular: within normal limits Cervical ROM: within normal limits Mallampati: Class II Dentition: false Pulmonary Sleep Apnea CV/HEM Atrial Fibrillation, Arrythmia, Coronary Artery Disease (CABG and stents), Hypertension and Myocardial Infarction GI Gastroesophageal Reflux Disease Metabolic Hyperlipidemia Neuropsych Anxiety and Depression Anesthetic Plan ASA status: 3 Anesthesia: General Medications/Allergies Home Medications Medication Instructions Recorded Confirmed Last Taken Type ketoconazole 2 % topical cream 1 applic TOPICAL PRN 08/06/19 11/16/21 Unknown History cetirizine 10 mg tablet (Zyrtec) 10 mg PO QAM 07/16/21 11/19/21 11/19/21 06:00 History cholecalciferol (vitamin D3) 25 1,000 unit PO QAM 07/16/21 11/19/21 11/19/21 06:00 History mcg (1,000 unit) capsule donepezil 10 mg tablet 10 mg PO QPM 07/16/21 11/19/21 11/18/21 20:00 History finasteride 5 mg tablet 5 mg PO QPM 07/16/21 11/19/21 11/18/21 20:00 History lansoprazole 30 mg capsule,delayed 30 mg PO QPM 07/16/21 11/19/21 11/18/21 20:00 History release (Prevacid) magnesium 250 mg tablet 250 mg PO DAILY 07/16/21 11/19/21 11/18/21 20:00 History mecobalamin (vitamin B12) 1,000 1,000 mcg SUBLINGUAL QAM 07/16/21 11/19/21 11/19/21 06:00 History mcg disintegrating tablet,sublingual montelukast 10 mg tablet 10 mg PO QAM 07/16/21 11/19/21 11/19/21 06:00 History potassium gluconate 595 mg (99 mg) 595 mg PO QAM 07/16/21 11/19/21 11/19/21 06:00 History tablet rosuvastatin 10 mg tablet 10 mg PO QPM 07/16/21 11/19/21 11/18/21 20:00 History trazodone 150 mg tablet 150 mg PO BEDTIME 07/16/21 11/19/21 11/18/21 20:00 History clonazepam 1 mg tablet 1 mg PO DAILY #30 tab 08/20/21 11/19/21 11/19/21 06:00 Rx losartan 50 mg tablet 50 mg PO QAM #90 tab 08/20/21 11/19/21 11/19/21 06:00 Rx albuterol sulfate 90 mcg/actuation 2 inh INHALATION Q6H PRN #8.5 g 08/28/21 11/19/21 11/17/21 Rx aerosol inhaler aspirin 81 mg tablet,delayed 81 mg PO QAM #30 tab 08/28/21 11/19/21 11/16/21 Rx release (Adult Low Dose Aspirin) clopidogrel 75 mg tablet 75 mg PO QAM #30 tab 08/28/21 11/16/21 11/14/21 Rx amlodipine 5 mg tablet 5 mg PO BID #180 tab 09/11/21 11/19/21 11/19/21 06:00 Rx fluticasone propionate 50 2 spray INTRANASAL QAM #16 g 09/11/21 11/19/21 11/18/21 07:00 Rx mcg/actuation nasal spray,suspension (Allergy Relief (fluticasone)) furosemide 20 mg tablet 10 mg PO QAM #45 tab 09/11/21 11/19/21 11/19/21 06:00 Rx isosorbide mononitrate 30 mg 30 mg PO BID #180 tab 09/11/21 11/19/21 11/19/21 06:00 Rx tablet,extended release 24 hr polyethylene glycol 3350 17 17 g PO QAM #510 g 09/11/21 11/19/21 11/18/21 07:00 Rx gram/dose oral powder (Miralax) Allergies Allergy/AdvReac Type Severity Reaction Status Date / Time No Known Allergies Allergy Verified 11/09/21 11:13 Current Medications Generic Name Dose Route Start Last Admin Trade Name Freq PRN Reason Stop Dose Admin Sodium Chloride 1,000 mls @ 30 mls/hr 11/19/21 07:45 11/19/21 08:33 Sodium Chloride 0.9% IV 11/20/21 07:44 30 mls/hr .Q24H ROSEMARY Administration PFSH Anesthesia Medical History Acute coronary syndrome Anxiety BPH w urinary obs/LUTS Chest pain Chronic kidney disease (CKD) stage G3a/A1, moderately decreased glomerular filtration rate (GFR) between 45-59 mL/min/1.73 square meter and albuminuria creatinine ratio less than 30 mg/g Chronic renal disease, stage 3, moderately decreased glomerular filtration rate (GFR) between 30-59 mL/min/1.73 square meter Chronic ulcerating interstitial cystitis COPD (chronic obstructive pulmonary disease) Coronary artery disease involving autologous vein coronary bypass graft without angina pectoris COVID-19 vaccine administered 2 doses plus booster Depression Erectile dysfunction Ex-smoker Gastro-esophageal reflux disease with esophagitis Glaucoma Hyperlipemia, mixed Hypertension Idiopathic progressive neuropathy Left carotid bruit Macrocytic anemia Memory loss Myocardial infarct, old Obstructive sleep apnea Osteoarthritis Raynaud's disease ST elevation (STEMI) myocardial infarction Surgical History H/O vasectomy S/P angioplasty S/P coronary artery bypass graft x 2 S/P cystoscopy Family History Mother , At 76 CAD (coronary artery disease) Active rheumatic fever Father , at 50 CAD (coronary artery disease) Heart attack Sister , At age 57 CAD (coronary artery disease) Family/Other Hypertension Social History Smoking and tobacco status: former smoker Quit status (tobacco): has quit using tobacco Year quit tobacco: 1988 [id number] Second hand smoke exposure: No Alcohol intake: former Lives independently: Yes Household members: spouse Housing: House Marital status: service: No Current occupational status: retired Pets and animals: No History of recent travel: No Current gender identity: Male Special evelyn needs: No Data Anesthesia Cardiac Studies: Echocardiogram 07/17/21 Cardiac Event Monitor 08/28/21
--- NOTE | 2021-11-19 08:57 | P.HPUD_ITS ---
Surgery/Procedure H&P Update DATE OF PROCEDURE: November 19, 2021 DATE H&P PERFORMED: 11/09/21 H&P UPDATE INFORMATION: I have reviewed H&P completed within last 30 days, I have examined patient prior to procedure, Changes to prior documentation as noted here and H&P is in [facility] EMR on date indicated CHANGES TO PREVIOUS DOCUMENTATION: Since his clinic visit it was confirmed that he was safely able to stop his anticoagulants Has been off aspirin for 2 days and the Plavix for 4 days. PREOP DIAGNOSIS: Interstitial cystitis with Hunner's ulcer PLANNED PROCEDURE: Operation Date: 11/19/21 08:50 Proposed Procedures p Cystoscopy 01046/03392/n30.10(Not Applicable) - Fei Moore MD s Bladder Hydrodistention(Not Applicable) - Fei Moore MD s Ulcer Fulguration(Not Applicable) - Fei Moore MD
--- NOTE | 2021-11-19 09:02 | PM.OP ---
Operative Report Date of procedure: November 19, 2021 Pre-op diagnosis: Interstitial cystitis with Hunner's ulcers Post-op diagnosis: Interstitial cystitis with Hunner's ulcers Procedure done: 1. Cystoscopy with hydrodistention 2. Fulguration of bladder lesion small (Hunner's ulcer) Pathology: None Surgeon: Teresa Anesthesia: MAC Estimated blood loss: Minimal Urine output: Not measured Complications: None Findings: Anesthetic capacity: Brief History: Mr. Thompson is a very pleasant 76-year-old white male with a longstanding history of chronic bladder irritative symptoms ultimately proven to be chronic interstitial cystitis with Hunner's ulcers. He has responded well to hydrodistention and fulguration of the ulcer as needed. He has not responded to other conventional treatments such as bladder instillation oral therapies. He is admitted now for cystoscopy hydrodistention and fulguration of Hunner's ulcer as appropriate. Procedure: After routine preoperative evaluation examination and obtaining of informed consent he was taken to the operating suite on 11/19/2021 where general anesthesia was administered without difficulty after appropriate timeout was performed, SCDs confirmed to be functioning, preoperative antibiotics administered and beta-donato protocol confirmed. Prepped and draped in usual sterile fashion in dorsolithotomy position paying careful attention to avoiding pressure points. 21 English cystoscope with 30 degree lens was introduced into the urethra meatus and advanced into the bladder under videoscopy. The bladder was systematically examined. Hunner's ulcer was identified. It did not look acutely inflamed but did demonstrate significant scar tissue. There is actually a couple other smaller ones as well The column of water was measured to 50 cm and then the bladder was hydrodistended for a total of 5 minutes. Minor changes of glomerulation were noted A second hydrodistention of the same fashion was performed. The Hunner's ulcer did have some mild hemorrhage and disruption of the mucosa. The Bugbee cautery probe was then utilized to fulgurate the Sharan's ulcer. Hemostasis was confirmed. Bladder was drained and the procedure was completed after instillation of heparin, Kenalog, lidocaine, Marcaine solution as per protocol. And then the scope was removed. He tolerated procedure well without complications and was awakened in the operating room and returned to the recovery room in stable condition. PLANS: 1. Plan for discharge from outpatient surgery today 2. Follow-up in about 4 months
[2021-11-19] MEDS: levofloxacin-dextrose 5 % 500 MG/100 ML PREMIX 100 MG IV (09:21)
[2021-11-19] MEDS: heparin, porcine 1,000 unit/mL INJ 10 mL 10000 UNIT IRRIGATION (09:45)
[2021-11-19] MEDS: lidocaine 2% INJ 20 mL INJECTION (09:45)
[2021-11-19] MEDS: triamcinolone 40 mg/mL SDV IM (09:55)
--- NOTE | 2021-11-19 10:22 | SUR.PHASEI ---
1008 pt to pacu SLEEPY WITH GOOD RESP EFFORT NOTED ABDOMEN SOFT IV TO LT HAND #18 PATENT OF NS 500ML AT KVO RATE PER GRAVITY, 1023 PT AWAKE ALERT NO COMPLAINTS, VSS ABDOMEN SOFT PT VERBALLY DENEIS PAIN AND NAUSEA REQUESTS COFFEE.
--- NOTE | 2021-11-19 14:11 | ANE.PACU2 ---
Inpatient post-anesthesia follow up: Airway intact: Yes Vital signs: Temperature 98.0 F Pulse Rate 59 Respiratory Rate 16 Blood Pressure 113/73 Pulse Oximetry 96 Oxygen Delivery Me thod Room Air Oxygen Flow Rate 8 Fraction of Inspir ed Oxygen Hydration adequate: Yes Nausea and vomiting: No Pain level: 2 Mental status: Baseline
== END 2021-11-19 11:25 | disposition home or self-care (01) ==
PROVIDERS: PCP Family Medicine; Visit Provider Urology
PROC: 0TJB8ZZ Inspection of Bladder, Via Natural or Artificial Opening Endoscopic (ICD-10-PCS; CPT 52000; principal; 2021-11-19 08:40)
PROC: 0T7B7ZZ Dilation of Bladder, Via Natural or Artificial Opening (ICD-10-PCS; CPT 52234; 2021-11-19 08:40)
PROC: 0T5B8ZZ Destruction of Bladder, Via Natural or Artificial Opening Endoscopic (ICD-10-PCS; CPT 52234; 2021-11-19 08:40)
DX: N30.10 Interstitial cystitis (chronic) without hematuria (principal); I48.91 Unspecified atrial fibrillation; G47.30 Sleep apnea, unspecified; I25.10 Atherosclerotic heart disease of native coronary artery without angina pectoris; Z95.1 Presence of aortocoronary bypass graft; Z95.5 Presence of coronary angioplasty implant and graft; K21.9 Gastro-esophageal reflux disease without esophagitis; I25.2 Old myocardial infarction; Z79.82 Long term (current) use of aspirin; F41.9 Anxiety disorder, unspecified; N40.1 Benign prostatic hyperplasia with lower urinary tract symptoms; N13.8 Other obstructive and reflux uropathy; J44.9 Chronic obstructive pulmonary disease, unspecified; E78.2 Mixed hyperlipidemia; G47.33 Obstructive sleep apnea (adult) (pediatric); M19.90 Unspecified osteoarthritis, unspecified site; I12.9 Hypertensive chronic kidney disease with stage 1 through stage 4 chronic kidney disease, or unspecified chronic kidney disease; N18.31 Chronic kidney disease, stage 3a; N17.9 Acute kidney failure, unspecified; Z82.49 Family history of ischemic heart disease and other diseases of the circulatory system; Z83.3 Family history of diabetes mellitus; Z87.891 Personal history of nicotine dependence
CPT/HCPCS: 52234; J1100; J1644; J1956; J2405; J3010; J3301; J3490; J7030

== ENCOUNTER → 2021-12-12 12:05 | Outpatient (BNVA) | payer MEDICARE, OTHER, SELFPAY | PROVIDERS: PCP Family Medicine; Visit Provider Family Medicine | DX: E53.8 Deficiency of other specified B group vitamins (principal); I10 Essential (primary) hypertension; E55.9 Vitamin D deficiency, unspecified; G47.00 Insomnia, unspecified; E78.2 Mixed hyperlipidemia; F41.9 Anxiety disorder, unspecified; R41.3 Other amnesia | CPT/HCPCS: 80053; 80061; 82306; 82607 ==

== ENCOUNTER → 2022-03-11 10:04 | Outpatient (BNVA) | payer MEDICARE, OTHER, SELFPAY | PROVIDERS: PCP Family Medicine; Visit Provider Family Medicine | DX: E78.2 Mixed hyperlipidemia (principal); I10 Essential (primary) hypertension; Z12.5 Encounter for screening for malignant neoplasm of prostate; G47.00 Insomnia, unspecified | CPT/HCPCS: 80053; 80061; 84443; G0103 ==

== ENCOUNTER → 2022-04-08 10:40 | Outpatient (BNVA) | payer MEDICARE, OTHER, SELFPAY | PROVIDERS: PCP Family Medicine; Visit Provider Nurse Practitioner Gerontology | DX: N18.9 Chronic kidney disease, unspecified (principal); E55.9 Vitamin D deficiency, unspecified; E79.0 Hyperuricemia without signs of inflammatory arthritis and tophaceous disease; N18.30 Chronic kidney disease, stage 3 unspecified | CPT/HCPCS: 80048; 81003; 82040; 82306; 82542; 83036; 83735; 84100; 84550 ==

== ENCOUNTER 2022-04-25 11:27 | Outpatient (CLI) | payer MEDICARE, OTHER, SELFPAY ==
--- NOTE | 2022-04-25 12:00 | USCV_ITS ---
Chris Thompson Age: 76 Gender: M : 1945 Exam Date: 04/25/2022 11:42 Ordering Phys: Mandeep Beal M.D ([email or web address]) Technologist: LYSSA Exam Location: [facility] [place] Indication: EVAL FOR STENOSIS/. H/O LEFT ICA STENT Risk Factors: Previous Vascular Surgery: Right Brachial BP: / Left Brachial BP: / Right Left Velocity (cm/s) Spectral Plaque Velocity (cm/s) Spectral Plaque Syst/Diast Broadening Syst/Diast Broadening 73.00/ 10.10 Prox CCA 99.90 / 14.40 75.40/ 14.80 Mid CCA 69.10 / 15.50 51.30/ 11.70 Distal CCA 149.70/ 29.00 135.20/45.80 Prox ICA 75.00 / 17.80 153.00/37.90 Mid ICA 83.40 / 21.10 106.50/34.20 Distal ICA 113.85/ 27.20 128.30 ECA 287.35 2.03 ICA/CCA 0.56 Retrograde Vertebral Antegrade 23.10/ 8.50 cm/s 81.60/ 13.20 cm/s Tri Subclavian Tri 115.0 169.6 0 0 CONCLUSIONS Right ICA stenosis 50-69%. Moderate calcified atheromatous plaque right carotid bulb/ICA. Left ICA stenosis <50%. Moderate calcified atheromatous plaque left carotid bulb/ICA. Retrograde flow noted in the right vertebral artery with abnormal subclavian waveform consistent with subclavian steal. Normal antegrade Doppler flow noted in the left vertebral artery. Jean Claude Whittington MD (Electronically Signed) Final Date: 26 April 2022 17:15 S
== END 2022-04-25 11:28 | disposition home or self-care (01) ==
LOC: RAD 11:29
PROVIDERS: PCP Family Medicine; Visit Provider Internal Medicine
DX: I65.23 Occlusion and stenosis of bilateral carotid arteries (principal)
CPT/HCPCS: 93880

== ENCOUNTER → 2022-04-30 13:42 | Outpatient (BNVA) | payer MEDICARE, OTHER, SELFPAY | PROVIDERS: PCP Family Medicine; Visit Provider Internal Medicine | DX: I25.2 Old myocardial infarction (principal); I12.9 Hypertensive chronic kidney disease with stage 1 through stage 4 chronic kidney disease, or unspecified chronic kidney disease; N18.31 Chronic kidney disease, stage 3a; Z87.891 Personal history of nicotine dependence; Z95.1 Presence of aortocoronary bypass graft; I73.9 Peripheral vascular disease, unspecified; E78.2 Mixed hyperlipidemia | CPT/HCPCS: 99214 ==

== ENCOUNTER → 2022-06-12 15:24 | Outpatient (BNVA) | payer MEDICARE, OTHER, SELFPAY | PROVIDERS: PCP Family Medicine; Visit Provider Family Medicine | DX: R30.0 Dysuria (principal); R25.2 Cramp and spasm; Z76.89 Persons encountering health services in other specified circumstances | CPT/HCPCS: 81000 ==

== ENCOUNTER 2022-07-02 09:11 | Outpatient (CLI) | payer MEDICARE, OTHER, SELFPAY ==
--- NOTE | 2022-07-02 09:15 | USCV_ITS ---
Chris Thompson Age: 76 Gender: M : 1945 Exam Date: 07/02/2022 09:33 Ordering Phys: Mandeep Beal M.D ([email or web address]) Technologist: CT Exam Location: [facility] [place] Indication: pvd Risk Factors: Previous Vascular Surgery: RIGHT LEFT BP: 109.0 / 56.00 BP: 121.0/ 60.00 0 0 Waveform Velocity (cm/s) Velocity (cm/s) Waveform Triphasic 97.7 Iliac Prox 65.7 Biphasic Biphasic 90.6 Iliac Mid 75.0 Biphasic Biphasic 142.7 Iliac Distal 154.7 Biphasic Biphasic 134.8 COLLECTION TELLER 273.4 Biphasic Biphasic 117.4 SFA Prox 338.4 Biphasic Biphasic 67.6 SFA Mid 104.5 Biphasic Biphasic 115.2 SFA Dist 138.7 Biphasic Biphasic 99.5 POP 116.6 Biphasic Biphasic 51.1 POLL CLERK 99.4 Triphasic Monophasic 20.1 DPA 0.0 N/A 0.9 ANY 0.9 FINDINGS 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 Resting ANY of 0.9 bilaterally Moderate to heavy heterogenous irregular plaques at the left iliac and femoral arteries with flow turbulence and elevated flow velocities Normal Doppler flow signal in the dorsalis pedis artery on the left side CONCLUSIONS 1. Slightly diminished resting ABIs bilaterally. 2. Moderate to heavy heterogenous irregular plaques at the left iliac and femoral arteries with velocity elevation, suggesting greater than 60% stenosis in the common femoral and proximal superficial femoral arteries. 3. Possible occlusion of the dorsalis pedis artery on the left side. 4. Moderate diffuse plaques in the right iliac and femoral arteries with possibly no significant stenosis. Dr Ana Mac MD [facility] (Electronically Signed) Final Date: 02 July 2022 19:13 S
== END 2022-07-02 09:12 | disposition home or self-care (01) ==
LOC: RAD 09:11
PROVIDERS: PCP Family Medicine; Visit Provider Internal Medicine
DX: M79.604 Pain in right leg (principal); M79.605 Pain in left leg; I70.8 Atherosclerosis of other arteries
CPT/HCPCS: 93925

== ENCOUNTER 2022-07-23 09:01 | Outpatient (CLI) | payer MEDICARE, OTHER, SELFPAY ==
[2022-07-23] VITALS (139 sets, daily range): BP systolic 119–170; BP diastolic 55–110; PULSE 41–77; RESP 0–25; TEMP 36.3–37.1; O2SAT 92–97; BMI 26.9
--- NOTE | 2022-07-23 09:00 | XACV_ITS ---
Ht: 175 cm Wt: 83 kg BSA: 2.02 m2 Any Known Allergies: No known allergies Gender: Male : 1945 Exam Type: Invasive Peripheral Vascular Procedure(s): Procedure Description: Peripheral Cath Diagnostic Procedure Procedure Description: Abdominal aortic angiography Procedure Description: Lower extremities' angiography Exam Priority: Routine Lower Extremity Diagnostic Findings INDICATION: 76-year-old man with past medical history of coronary artery disease s/p CABG, PAD with prior interventions has been having significant bilateral lower extremity claudication symptoms. This is noted in his routine activities. ABIs are mildly diminished bilaterally. Left sided pressure showed significant stenosis in the left iliac/femoral artery. Plan for peripheral angiogram with possible intervention. Left lower extremity findings: Left common iliac artery: Has a 30 to 40% stenosis. Has a patent prior stent. Left external iliac artery: Patent Left internal iliac artery: Patent Left common femoral artery: Has 40 to 50% stenosis. Left SFA: Patent. Left profunda artery: Patent. Left popliteal artery: Patent. Below the knee patient has two-vessel runoff with patent peroneal and posterior tibial artery. Anterior tibial artery is occluded. We did put a catheter below the common iliac artery and performed pull back and measured pressure gradient which is not significant.. Right lower extremity findings: Right common iliac artery: Patent. Right external iliac artery: Patent. Right common femoral artery: Patent. Right SFA: Patent. Right profunda artery: Patent. Right popliteal artery: Has moderate 40% stenosis. Below the knee patient has patent peroneal artery. Anterior tibial artery appears to be occluded.. Conclusions Mild bilateral [id number] peripheral artery disease. Significant below the knee peripheral artery disease. Recommendations Aggressive risk factor modification. Outpatient cardiology follow-up in 4 weeks. Medical management. Hemodynamic Data Phase:Rest AO : 140.0 / 50.0 ( 79.0 ) @ 10:44:00 AM 120.0 / 48.0 ( 76.0 ) @ 10:46:00 AM 141.0 / 48.0 ( 80.0 ) @ 10:51:00 AM 148.0 / 50.0 ( 83.0 ) @ 10:52:00 AM 146.0 / 50.0 ( 83.0 ) @ 10:53:00 AM 144.0 / 49.0 ( 82.0 ) @ 10:54:00 AM 144.0 / 48.0 ( 81.0 ) @ 10:54:00 AM 144.0 / 50.0 ( 82.0 ) @ 10:55:00 AM 147.0 / 51.0 ( 84.0 ) @ 10:55:00 AM 148.0 / 50.0 ( 84.0 ) @ 10:57:00 AM Access Site Site: Right Radial artery Sheath Size: 6 Fr Hemost... Method: Manual Compression Hemost... Success: Successful Procedure Details Findings Procedure Consent Obtained. Pre-Procedure Time Out. Identified patient by full name and date of as verbalized by the patient/guarantor. Does the consent match the physician's order: Yes. Accurate & Complete Informed Consent: Yes. Inpatient/Outpatient History & Physical on Chart: Yes. If H&P is completed, is and addenduem needed: Yes; If yes, is the addendum complete: Yes. Visualize and Verify Site with Patient/Guarantor: N/A. Relevant Radiology Images available: Yes. Pre-op teaching completed and patient verbalized understanding. The risks, benefits, and alternatives of sedation and/or procedure were discussed by physician. The patient agrees to continue. Procedure started. PERRLA. Strong, equal hand ged tutor bilaterally. Lungs clear x 5 lobes. IV Site on Arrival: 20 gauge in the right anticubital. IV Fluids: 0.9% NaCl at KVO. 0 mL infused prior to cardiac cath rn. Pre Procedural Pulses: bilateral dorsalis pedis was 1+. Pre Procedural Pulses: bilateral posterior tibial was 1+. Pre Procedural Pulses: bilateral radial was 3+. Oxygen started at 2liters/min via nasal canula. bilateral groins was prepped with chloroprep then draped in the usual sterile fashion. Baseline sample Acquired. HR: 55 BPM. Physician arrived. Physician scrubbed in. Immediate Pre-Procedure Time Out. Correct Patient: Yes; Correct Procedure: Yes; Correct Site: Yes; Correct Patient Position: Yes; Correct Supplies: Yes; Dried Flammable Prep: Yes; Blood Products Available: N/A;. Lidocaine 1% infiltrated to the right groin. Arterial access obtained with micropuncture set. Wire unable to cross. Wire and needle out. Manual pressure applied until hemostasis achieved. Arterial access obtained with micropuncture set. A 5FrFr UF catheter in over wire. Abdominal aortogram performed in AP @ 10 mL/sec for a total of 30 mL. The UF postioned above the bifurcation of the iliacs. Aortagram performed @ 10 mL/sec for a total of 15 mL. Glidewire inserted through the catheter. Wire out. Left external iliac selected and arteriogram performed @ 10 mL/sec for a total of 15 mL. Left popliteal selected and DSA performed. Glidewire inserted. Wire out. Catheter out. Sheath injected in Right common femoral artery and runoff performed. A Manual Compression was successful obtaining hemostatsis at the Right Radial artery insertion site. Post Procedure: Pulses reassessed and unchanged. PERRLA. Strong, equal hand ged tutor bilaterally. No VTE prophylaxis required. Medication's Wasted: Lidocaine 1% = 2 mL. Medication's Wasted: Heparin = 1000 units. Medication's Wasted: Other = Fentanyl 25mcg Versed 1 mg. Total IV fluids: 40 mL. Post-op diagnosis: Mild PAD. Complications: none. Estimated blood loss: 5mL-10mL. Responsiveness - Normal response to verbal stimuli; alert and oriented, PERRLA. Airway - Unaffected, no intervention required; spontaneous ventilation. Circulation: W/N/L, pulses unchanged. Nausea/Vomiting: No. Procedure completed. Patient transferred by stretcher to CPRU. Procedure Medications Start: 10:30 AM Stop: 10:30 AM Medication: Versed Amount: 1 mg Route: I.V. Start: 10:30 AM Stop: 10:30 AM Medication: Fentanyl Amount: 50 mcg Route: I.V. Start: 10:57 AM Stop: 10:57 AM Medication: 0.9% Saline Amount: 100 ml/hr Route: I.V. drip Start: 10:59 AM Stop: 10:59 AM Medication: Fentanyl Amount: 25 mcg Route: I.V. I, the attending physician, have reviewed and verified all procedure medications. Yes, all medications given per verbal order History/Risk Factors Hypertension: No Dyslipidemia: No Peripheral Arterial Disease (PAD): Yes Obesity: No Renal Disease: No Tobacco Use: Former Prior Interventions PCI: No CABG: Yes Valve Surgery: No Report Signatures Finalized by Mandeep Beal MD on 08/04/2022 10:40 AM
[2022-07-23] MEDS: diphenhydrAMINE 50 mg Capsule PO (09:15)
[2022-07-23 09:53] LABS: Basophils % 0.4 %; Eosinophils % 0.8 %; Hematocrit 35.3 % (42.0-52.0); Hemoglobin 12.2 g/dL (11.7-16.6); Lymphocytes # 1.3 10^3/uL (0.8-4.8); Lymphocytes % 26.7 %; Mean Corpuscular HGB Conc 34.6 g/dL (30.0-36.0); Mean Corpuscular Hemoglobin 33.7 pg (28.0-34.0); Mean Corpuscular Volume 97.5 fl (80-94); Mean Platelet Volume 10.6 fL (7.4-10.4); Monocytes # 0.6 10^3/uL (0.2-0.9); Monocytes % 12.5 %; Neutrophils # 2.89 10^3/uL (1.8-7.7); Neutrophils % 59.4 %; Nucleated Red Blood Cells % 0 %; Platelet Count 171 10^3/cmm (130-400); Red Blood Count 3.62 10^6/uL (4.1-5.3); Red Cell Distribution Width 11.9 % (12.1-15.1); White Blood Count 4.9 10^3/uL (4.0-10.0)
--- NOTE | 2022-07-23 10:00 | W.PM.OPSFHP ---
Same Day Surgery H&P Indication for Procedure/HPI DATE OF PROCEDURE: July 23, 2022 CHIEF COMPLAINT/INDICATIONFOR SURGICAL PROCEDURE: Severe lifestyle limiting claudication PREOP DIAGNOSIS: Severe lifestyle limiting claudication PLANNED PROCEDURE: Operation Date: 07/23/22 10:00 Proposed Procedures p Peripheral Angiogram 54495,I73.9(Not Applicable) - Mandeep Beal M.D Possible percutaneous intervention 76-year-old man with past medical history of coronary artery disease s/p CABG, PAD with prior interventions has been having significant bilateral lower extremity claudication symptoms. This is noted in his routine activities. ABIs are mildly diminished bilaterally. Left sided showed significant stenosis in the left iliac/femoral artery. Plan for peripheral angiogram with possible intervention Medications/Allergies* Home Medications Medication Instructions Recorded Confirmed Type ketoconazole 2 % topical cream 1 applic topical PRN 08/06/19 07/23/22 History cetirizine 10 mg tablet (Zyrtec) 10 mg PO QAM 07/16/21 07/23/22 History cholecalciferol (vitamin D3) 25 1,000 unit PO QAM 07/16/21 07/23/22 History mcg (1,000 unit) capsule magnesium 250 mg tablet 250 mg PO DAILY 07/16/21 07/23/22 History mecobalamin (vitamin B12) 1,000 1,000 mcg sublingual QAM 07/16/21 07/23/22 History mcg disintegrating tablet,sublingual Allergies/Adverse Reactions Allergy/AdvReac Type Severity Reaction Status Date / Time No Known Allergies Allergy Verified 06/12/22 15:03 Current Medications: Generic Name Dose Route Start Last Admin Trade Name Freq PRN Reason Stop Dose Admin Sodium Chloride 1,000 mls @ 50 mls/hr 07/23/22 09:00 07/23/22 09:15 Sodium Chloride 0.9% IV 07/24/22 04:59 Not Given .Q20H ONE Pertinent History/Comorbid Conditions* Medical History (Updated 05/04/22 @ 23:39 by Mandeep Beal M.D) Acute coronary syndrome Anxiety BPH w urinary obs/LUTS Chest pain Chronic kidney disease (CKD) stage G3a/A1, moderately decreased glomerular filtration rate (GFR) between 45-59 mL/min/1.73 square meter and albuminuria creatinine ratio less than 30 mg/g Chronic renal disease, stage 3, moderately decreased glomerular filtration rate (GFR) between 30-59 mL/min/1.73 square meter Chronic ulcerating interstitial cystitis COPD (chronic obstructive pulmonary disease) Coronary artery disease involving autologous vein coronary bypass graft without angina pectoris COVID-19 vaccine administered 2 doses plus booster Depression Erectile dysfunction Ex-smoker Gastro-esophageal reflux disease with esophagitis Glaucoma Hyperlipemia, mixed Hypertension Idiopathic progressive neuropathy Left carotid bruit Macrocytic anemia Memory loss Myocardial infarct, old Obstructive sleep apnea Osteoarthritis Raynaud's disease ST elevation (STEMI) myocardial infarction Surgical History (Updated 09/27/19 @ 16:26 by Luzmaria Andrea MD) H/O vasectomy S/P angioplasty S/P coronary artery bypass graft x 2 S/P cystoscopy Family History (Updated 11/09/21 @ 11:23 by Donavan Grady) Father, at 50 Mother, At 76 Sister, At age 57 CAD (coronary artery disease) Mother Father Sister Active rheumatic fever Mother Heart attack Father Hypertension Family/Other Social History Smoking and tobacco status: former smoker Quit status (tobacco): has quit using tobacco Year quit tobacco: 1988 [id number] Second hand smoke exposure: No Alcohol intake: former Lives independently: Yes Household members: spouse Housing: House Marital status: service: No Current occupational status: retired Pets and animals: No History of recent travel: No Current gender identity: Male Special evelyn needs: No Pertinent Exam Findings alert, oriented x 3, clear to auscultation bilaterally and regular rate & rhythm Conscious Sedation Assessment PATIENT ASSESSED PRIOR TO SEDATION, WITH NO CHANGE NOTED: Yes AIRWAY EVAL/ANESTHESIA PLAN: normal airway, ASA III, Local Anesthesia, Risks, benefits & alternatives of sedation and/or procedure discussed and Patient agrees to continue as planned ADDITIONAL INFORMATION: Moderate sedation Recommendations Surgery/Procedure today (Peripheral angiogram with possible intervention) Coding Level of Care Code Acute Superintendent Service for Judson Da Silva
[2022-07-23 10:11] LABS: Anion Gap 14.3 (5-19); Blood Urea Nitrogen 23 mg/dL (8-23); Calcium 9.1 mg/dL (8.5-10.5); Carbon Dioxide 26 mmol/L (22-29); Chloride 103 mmol/L (98-107); Glucose 90 mg/dL (65-115); Osmolality Calculated 291 mOsm/kg (285-295); Potassium 4.3 mmol/L (3.5-5.1); Sodium 139 mmol/L (136-145)
--- NOTE | 2022-07-23 13:31 | SUR.PHASEI ---
Patient transferred via bed to Room 102. Bedside report to JB Abdi.
[2022-07-23] MEDS: sodium chloride 0.9% 1,000 ML 100 ML IV ×2 (15:20→21:06)
[2022-07-23] MEDS: amlodipine 5 mg Tablet PO (17:56)
[2022-07-24] VITALS (52 sets, daily range): BP systolic 115–148; BP diastolic 58–63; PULSE 40–67; RESP 0–19; TEMP 36.4–36.6; O2SAT 92–93
[2022-07-24 05:04] LABS: Basophils % 0.2 %; Eosinophils # 0.1 10^3/uL (0.0-0.8); Eosinophils % 1.2 %; Hematocrit 31.7 % (42.0-52.0); Lymphocytes # 1.4 10^3/uL (0.8-4.8); Lymphocytes % 31.4 %; Mean Corpuscular HGB Conc 34.7 g/dL (30.0-36.0); Mean Corpuscular Hemoglobin 33.8 pg (28.0-34.0); Mean Corpuscular Volume 97.5 fl (80-94); Mean Platelet Volume 10.5 fL (7.4-10.4); Monocytes # 0.7 10^3/uL (0.2-0.9); Monocytes % 15.7 %; Neutrophils # 2.22 10^3/uL (1.8-7.7); Neutrophils % 51.3 %; Nucleated Red Blood Cells % 0 %; Platelet Count 149 10^3/cmm (130-400); Red Blood Count 3.25 10^6/uL (4.1-5.3); Red Cell Distribution Width 11.9 % (12.1-15.1); White Blood Count 4.3 10^3/uL (4.0-10.0)
[2022-07-24 05:23] LABS: Anion Gap 12.2 (5-19); Blood Urea Nitrogen 26 mg/dL (8-23); Calcium 8.9 mg/dL (8.5-10.5); Carbon Dioxide 26 mmol/L (22-29); Chloride 105 mmol/L (98-107); Glucose 97 mg/dL (65-115); Osmolality Calculated 293 mOsm/kg (285-295); Potassium 4.2 mmol/L (3.5-5.1); Sodium 139 mmol/L (136-145)
[2022-07-24] MEDS: sodium chloride 0.9% 1,000 ML 100 ML IV (06:32)
--- NOTE | 2022-07-24 06:32 | PC.NURSE ---
Patient refused to take scheduled medications this morning as he brought his home medications and wants to take them when he leaves as he will be discharged this morning. He said he is not going to pay for our medications since he already paid for his own.
--- NOTE | 2022-07-24 08:27 | PM.DCS ---
Discharge Providers Date of Admission: 07/23/22 13:41 Date of Discharge: July 24, 2022 Attending Provider at Admission: Mandeep Beal M.D Attending Provider at Discharge: Mandeep Beal M.D Primary Care Provider: Luzmaria Andrea MD Reason for Visit Reason for Visit: Life-style limiting claudication Brief History: 76-year-old man with past medical history of coronary artery disease s/p CABG, PAD with prior interventions has been having significant bilateral lower extremity claudication symptoms.? This is noted in his routine activities.? ABIs are mildly diminished bilaterally. Left sided showed significant stenosis in the left iliac/femoral artery. Plan for peripheral angiogram with possible intervention Hospital Course Hospital Course Patient underwent peripheral angiogram. He has significant below the knee peripheral artery disease but no significant above the knee disease. Patient will be treated with medical therapy Physical Exam Narrative: GENERAL: Patient is alert, awake and oriented x3. [] NECK: No jugular vein distension. [] HEENT: No cyanosis. No icterus. No pallor. [] HEART: Regular S1 and S2. No murmur, rub or gallop. [] LUNGS: Clear to auscultate bilaterally. [] ABDOMEN: Soft, nontender and nondistended. Positive bowel sounds. No guarding, rebound or tenderness. [] CENTRAL NERVOUS SYSTEM: Grossly nonfocal. [] EXTREMITIES: Lower extremities with 1+ edema bilaterally. Palpable PT bilaterally Discharge Data Studies Completed and Pending Pending at discharge Category Date Time Status DIRECTOR DIVERSITY request for service Routine Exams 07/23/22 09:00 Taken Laboratory Results WBC 4.3 10^3/uL (4.0-10.0) 07/24/22 04:32 RBC 3.25 10^6/uL (4.1-5.3) L 07/24/22 04:32 Hgb 11.0 g/dL (11.7-16.6) L 07/24/22 04:32 Hct 31.7 % (42.0-52.0) L 07/24/22 04:32 MCV 97.5 fl (80-94) H 07/24/22 04:32 MCH 33.8 pg (28.0-34.0) 07/24/22 04:32 MCHC 34.7 g/dL (30.0-36.0) 07/24/22 04:32 RDW 11.9 % (12.1-15.1) L 07/24/22 04:32 Plt Count 149 10^3/cmm (130-400) 07/24/22 04:32 MPV 10.5 fL (7.4-10.4) H 07/24/22 04:32 Neut % (Auto) 51.3 % 07/24/22 04:32 Lymph % (Auto) 31.4 % 07/24/22 04:32 Vermilion % (Auto) 15.7 % 07/24/22 04:32 Eos % (Auto) 1.2 % 07/24/22 04:32 Baso % (Auto) 0.2 % 07/24/22 04:32 Neut # (Auto) 2.22 10^3/uL (1.8-7.7) 07/24/22 04:32 Lymph # (Auto) 1.4 10^3/uL (0.8-4.8) 07/24/22 04:32 Vermilion # (Auto) 0.7 10^3/uL (0.2-0.9) 07/24/22 04:32 Eos # (Auto) 0.1 10^3/uL (0.0-0.8) 07/24/22 04:32 Baso # (Auto) 0.0 10^3/uL (0.0-0.1) 07/24/22 04:32 Nucleated RBC % (auto) 0 % 07/24/22 04:32 Nucleated RBCs # 0.0 /100WBC 07/24/22 04:32 Sodium 139 mmol/L (136-145) 07/24/22 04:32 Potassium 4.2 mmol/L (3.5-5.1) 07/24/22 04:32 Chloride 105 mmol/L (98-107) 07/24/22 04:32 Carbon Dioxide 26 mmol/L (22-29) 07/24/22 04:32 Anion Gap 12.2 (5-19) 07/24/22 04:32 BUN 26 mg/dL (8-23) H 07/24/22 04:32 Creatinine 1.4 mg/dL (0.7-1.2) H 07/24/22 04:32 GFR Calculation Not Reportable 07/24/22 04:32 Glucose 97 mg/dL (65-115) 07/24/22 04:32 Calculated Osmolality 293 mOsm/kg (285-295) 07/24/22 04:32 Calcium 8.9 mg/dL (8.5-10.5) 07/24/22 04:32 Vitals Last Vital Signs Temp 97.6 F 07/24/22 07:35 Pulse 52 L 07/24/22 07:35 Resp 18 07/24/22 07:35 BP 128/61 07/24/22 07:35 Pulse Ox 92 07/24/22 07:35 O2 Del Method 07/24/22 06:00 Discharge Plan Discharge Patient Disposition: Home Prescriptions: Continued polyethylene glycol 3350 [Miralax] 17 gram/dose powder 17 g PO QAM Qty: 510 3RF ketoconazole 2 % cream 1 applic TOPICAL PRN potassium chloride 10 mEq capsule, extended release 10 meq PO DAILY Qty: 30 1RF amlodipine 5 mg tablet 5 mg PO BID Qty: 180 2RF furosemide 20 mg tablet 10 mg PO QAM Qty: 45 2RF isosorbide mononitrate 30 mg tablet extended release 24 hr 30 mg PO DAILY Qty: 90 2RF trazodone 150 mg tablet See Rx Instructions .ROUTE .COMPLEX Qty: 90 1RF Dose Instruction: TAKE ONE TABLET BY MOUTH EVERY DAY Rx Instructions: TAKE ONE TABLET BY MOUTH EVERY DAY albuterol sulfate 90 mcg/actuation HFA aerosol inhaler 2 inh inhalation Q6H PRN (Reason: shortness of breath or wheezing) Qty: 8.5 1RF clonazepam 1 mg tablet 1 mg PO DAILY Qty: 90 1RF rosuvastatin 10 mg tablet 10 mg PO QPM Qty: 90 1RF fluticasone propionate 50 mcg/actuation spray,suspension See Rx Instructions .ROUTE .COMPLEX Qty: 16 0RF Dose Instruction: USE 2 SPRAYS IN EACH NOSTRIL EVERY MORNING Rx Instructions: USE 2 SPRAYS IN EACH NOSTRIL EVERY MORNING clopidogrel 75 mg tablet See Rx Instructions .ROUTE .COMPLEX Qty: 90 0RF Hold Instructions: Resume on 11/21/21. Dose Instruction: TAKE 1 TABLET EVERY MORNING Rx Instructions: TAKE 1 TABLET EVERY MORNING finasteride 5 mg tablet See Rx Instructions .ROUTE .COMPLEX Qty: 90 0RF Dose Instruction: TAKE 1 TABLET EVERY EVENING Rx Instructions: TAKE 1 TABLET EVERY EVENING magnesium 250 mg Tablet 250 mg PO DAILY cetirizine [Zyrtec] 10 mg tablet 10 mg PO QAM cholecalciferol (vitamin D3) 25 mcg (1,000 unit) capsule 1,000 unit PO QAM mecobalamin (vitamin B12) 1,000 mcg tablet,disintegrating 1,000 mcg SUBLINGUAL QAM No Action donepezil 10 mg tablet See Rx Instructions .ROUTE .COMPLEX Qty: 90 0RF Dose Instruction: TAKE 1 TABLET EVERY EVENING Rx Instructions: TAKE 1 TABLET EVERY EVENING lansoprazole 30 mg capsule,delayed release(DR/EC) See Rx Instructions .ROUTE .COMPLEX Qty: 90 0RF Dose Instruction: TAKE 1 CAPSULE EVERY EVENING Rx Instructions: TAKE 1 CAPSULE EVERY EVENING losartan 50 mg tablet See Rx Instructions .ROUTE .COMPLEX Qty: 90 0RF Dose Instruction: TAKE 1 TABLET EVERY MORNING Rx Instructions: TAKE 1 TABLET EVERY MORNING montelukast 10 mg tablet See Rx Instructions .ROUTE .COMPLEX Qty: 90 0RF Dose Instruction: TAKE 1 TABLET EVERY MORNING Rx Instructions: TAKE 1 TABLET EVERY MORNING Discharge Orders: Discharge Order (Routine); Ordered 07/24/22 Ordered By: Mandeep Beal Referrals: Mandeep Beal M.D [Physician] - 2 months (During your follow-up with Idalia you will be scheduled for an follow-up with Dr. [phone]) Idalia Schmid FNP [Nurse Practitioner] - 08/13/22 3:00 pm (Please follow-up with Idalia Schmid on Aug.13 at 3:00P.M. If you have any questions or need to reschedule. Please call ) Diet: Cardiac Activity: Increase activity as tolerated Patient Instructions: Opioid Safety, Post Angiogram Home Care Instructions Discharge Date/Time: 07/24/22 12:36 Discharge Attestations Time Spent in Discharge Care*: less than 30 min Status at Discharge: Cognitive status at discharge: cognitively intact, Behavioral status at discharge: cooperative, Quality Metrics Clinical Quality Measures [ No reported AMI, CVA or VTE this stay] Coding Level of Care Code Acute Chg FW DC note
--- NOTE | 2022-07-24 10:57 | PC.NURSE ---
Patient refuses to take medications from staff. Reports that he does not want to pay for them.
--- NOTE | 2022-07-24 12:35 | PC.NURSE ---
Discharge Note Patient discharged to home via w/c accompanied by spouse. Discharge instructions reviewed with patient and/or auto service representative. Mobile pharmacy medications and/or prescriptions provided. Belongings/home medications returned.
== END 2022-07-24 12:36 | disposition home or self-care (01) ==
LOC: CCL 09:02 → CSU 13:42
PROVIDERS: PCP Family Medicine; Visit Provider Internal Medicine
DX: I73.9 Peripheral vascular disease, unspecified (principal); I25.10 Atherosclerotic heart disease of native coronary artery without angina pectoris; Z95.1 Presence of aortocoronary bypass graft; Z87.891 Personal history of nicotine dependence; F41.9 Anxiety disorder, unspecified; N40.1 Benign prostatic hyperplasia with lower urinary tract symptoms; N13.8 Other obstructive and reflux uropathy; J44.9 Chronic obstructive pulmonary disease, unspecified; I25.110 Atherosclerotic heart disease of native coronary artery with unstable angina pectoris; F32.A Depression, unspecified; E78.2 Mixed hyperlipidemia; G47.33 Obstructive sleep apnea (adult) (pediatric); I12.9 Hypertensive chronic kidney disease with stage 1 through stage 4 chronic kidney disease, or unspecified chronic kidney disease; N18.30 Chronic kidney disease, stage 3 unspecified
CPT/HCPCS: 36415; 75625; 75716; 80048; 85025; 96361; 96365; 99152; 99153; C1769; C1887; C1894; J1644; J2250; J3010; J3490; J7030; Q0163; Q9967

== ENCOUNTER → 2022-08-13 14:50 | Outpatient (BNVA) | payer MEDICARE, OTHER, SELFPAY | PROVIDERS: PCP Family Medicine; Visit Provider Nurse Practitioner Family | DX: I73.9 Peripheral vascular disease, unspecified (principal); N18.31 Chronic kidney disease, stage 3a | CPT/HCPCS: 80048; 99214 ==

== ENCOUNTER → 2022-09-19 11:49 | Outpatient (BNVA) | payer MEDICARE, OTHER, SELFPAY | PROVIDERS: PCP Family Medicine; Visit Provider Family Medicine | DX: I10 Essential (primary) hypertension (principal); E78.2 Mixed hyperlipidemia; E61.2 Magnesium deficiency; Z12.5 Encounter for screening for malignant neoplasm of prostate | CPT/HCPCS: 80053; 80061; 83735; 84443; 85025; G0103 ==

== ENCOUNTER → 2022-10-29 15:11 | Outpatient (BNVA) | payer MEDICARE, OTHER, SELFPAY | PROVIDERS: PCP Family Medicine; Visit Provider Internal Medicine | DX: Z01.810 Encounter for preprocedural cardiovascular examination (principal); R07.9 Chest pain, unspecified; I25.2 Old myocardial infarction; E78.2 Mixed hyperlipidemia; I73.9 Peripheral vascular disease, unspecified; I12.9 Hypertensive chronic kidney disease with stage 1 through stage 4 chronic kidney disease, or unspecified chronic kidney disease; N18.30 Chronic kidney disease, stage 3 unspecified; Z87.891 Personal history of nicotine dependence | CPT/HCPCS: 99214 ==

== ENCOUNTER 2022-10-31 07:25 | Outpatient (CLI) | payer MEDICARE, OTHER, SELFPAY ==
[2022-10-31 07:46] VITALS: BMI 26.9
--- NOTE | 2022-10-31 07:57 | NMCV_ITS ---
NM nedra perf SPECT r/s* [id number] Chris Thompson Age: 77 Gender: M : 1945 Exam Date: 10/31/2022 08:40 Ordering Phys: Mandeep Beal M.D ([email or web address]) Technologist: AYESHA Barry Exam Location: [facility] Indications: CHEST PAIN; SHORTNESS OF BREATH STRESS TEST Please see separate stress test report [facility] for full findings IMAGE PROTOCOL Rest/Stress 1 Lexiscan Day Radiopharmaceutical Dose (mCi) Administration Site Administered by Rest: Tc-99m 10.8 IV AYESHA Erickson Sestamibi Stress:Tc-99m 32.8 IV AYESHA Erickson Sestamibi Rest: 31-Oct-2022 60 Discovery 630 Stress: 31-Oct-2022 30 Discovery 630 0.4mg Lexiscan. Images obtained in supine and prone position. SPECT RESULTS Technical Quality: Excellent Raw Data Analysis: Normal Image Corrections: No attenuation or motion correction applied Summed Stress Score: 11 Summed Rest Score: 18 Summed Difference Score: 1 PERFUSION FINDINGS Large sized, fixed perfusion defects are noted in inferior, inferoseptal and inferolateral barnhart. 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 No evidence of ischemia. FUNCTIONAL RESULTS (calculated via Gated SPECT) Stress Image LV EF (%): 65 Stress EDV (mL):125 TID: 0.93 Stress ESV (mL):44 FUNCTIONAL FINDINGS: There is normal left ventricular systolic function. IMPRESSIONS 1. 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 No evidence of ischemia 2. LV systolic function is normal. Mandeep Beal MD (Electronically Signed) Final Date: 03 November 2022 08:29 S
--- NOTE | 2022-10-31 07:57 | ECG_ITS ---
[facility] Test Date: 2022-10-31 Pat Name: Chris Thompson Department: Room: Gender: Male Instructor Of Spanish: Wanda Hidalgo : 1945 Requested By: Mandeep Beal Order Number: [id number] Juan MD: Mandeep Beal M.D. Interpretive Statements NAME OF STUDY: LEXISCAN SESTAMIBI STRESS TEST INDICATION: [Chest Pain, ] Procedure: At the baseline, the blood pressure was 116/57 mmHg with a heart rate of 46 bpm. The electrocardiogram showed normal sinus bradycardia, normal axis with normal ST and T's. The Lexiscan was infused over a period of 20 seconds. A total of 0.4 mg of Lexiscan was infused. The stress phase was continued for a total of 5 minutes. Heart rate was at the end of stress phase was 56 bpm and a blood pressure of 88/52 mmHg. The EKG at the peak infusion revealed normal sinus rhythm with no significant ST-T wave changes. Sestamibi was injected 20 seconds after the Lexiscan infusion. Blood pressure at the end of recovery phase was 116/47 mmHg with a heart rate of 57 bpm. Conclusion: 1. Normal EKG response to Lexiscan infusion 2. No Lexiscan induced chest pain or cardiac arrhythmia. 3. Normal blood pressure and heart rate response. 4. Sestamibi/sestamibi perfusion scan pending; see separate report Electronically Signed On 11-14-2022 12:15:21 CDT by Mandeep Beal M.D. [email or web address]
[2022-10-31] MEDS: regadenoson 0.4 Mg/5 ml Syringe IVP (09:23)
[2022-10-31 09:47] VITALS: BP 116/47; PULSE 56
== END 2022-10-31 07:26 | disposition home or self-care (01) ==
LOC: CDL 07:29
PROVIDERS: PCP Family Medicine; Visit Provider Internal Medicine
DX: R07.9 Chest pain, unspecified (principal); R06.02 Shortness of breath
CPT/HCPCS: 36415; 78452; 93017; 96374; A9500; J2785

== ENCOUNTER → 2023-04-03 09:27 | Outpatient (BNVA) | payer MEDICARE, OTHER, SELFPAY | PROVIDERS: PCP Family Medicine; Visit Provider Internal Medicine | DX: N18.31 Chronic kidney disease, stage 3a (principal); Z13.29 Encounter for screening for other suspected endocrine disorder; E78.2 Mixed hyperlipidemia; Z12.5 Encounter for screening for malignant neoplasm of prostate | CPT/HCPCS: 80048; 80053; 80061; 81000; 82310; 83735; 83970; 84100; 84443; 84550; 85025; G0103 ==

== ENCOUNTER → 2023-04-29 14:54 | Outpatient (BNVA) | payer MEDICARE, OTHER, SELFPAY | PROVIDERS: PCP Family Medicine; Visit Provider Internal Medicine | DX: I25.2 Old myocardial infarction (principal); E78.2 Mixed hyperlipidemia; I73.9 Peripheral vascular disease, unspecified; Z87.891 Personal history of nicotine dependence; I12.9 Hypertensive chronic kidney disease with stage 1 through stage 4 chronic kidney disease, or unspecified chronic kidney disease; N18.31 Chronic kidney disease, stage 3a | CPT/HCPCS: 99213 ==

== ENCOUNTER → 2023-05-01 14:50 | Outpatient (BNVA) | payer MEDICARE, OTHER, SELFPAY | PROVIDERS: PCP Family Medicine; Visit Provider Family Medicine | DX: J98.8 Other specified respiratory disorders (principal); J44.9 Chronic obstructive pulmonary disease, unspecified; F41.9 Anxiety disorder, unspecified | CPT/HCPCS: 87426 ==

== ENCOUNTER → 2023-05-05 10:28 | Outpatient (BNVA) | payer MEDICARE, OTHER, SELFPAY | PROVIDERS: PCP Family Medicine; Visit Provider Family Medicine | DX: R79.89 Other specified abnormal findings of blood chemistry (principal); I10 Essential (primary) hypertension | CPT/HCPCS: 84439; 84481 ==

== ENCOUNTER → 2023-05-15 09:30 | Outpatient (BNVA) | payer MEDICARE, OTHER, SELFPAY | PROVIDERS: PCP Family Medicine; Visit Provider Family Medicine | DX: N48.5 Ulcer of penis (principal) | CPT/HCPCS: 86592 ==

== ENCOUNTER → 2023-08-15 10:39 | Outpatient (BNVA) | payer MEDICARE, OTHER, SELFPAY | PROVIDERS: PCP Family Medicine; Visit Provider Family Medicine | DX: E55.9 Vitamin D deficiency, unspecified (principal); F41.9 Anxiety disorder, unspecified; I10 Essential (primary) hypertension; E78.2 Mixed hyperlipidemia; E53.8 Deficiency of other specified B group vitamins; M54.50 Low back pain, unspecified; R30.0 Dysuria; K21.9 Gastro-esophageal reflux disease without esophagitis; G47.00 Insomnia, unspecified; J42 Unspecified chronic bronchitis; M54.42 Lumbago with sciatica, left side; B36.9 Superficial mycosis, unspecified | CPT/HCPCS: 72100; 80053; 80061; 81000; 82306; 82607; 84443; 85025 ==

== ENCOUNTER → 2023-09-12 09:19 | Outpatient (BNVA) | payer MEDICARE, OTHER, SELFPAY | PROVIDERS: PCP Family Medicine; Visit Provider Nurse Practitioner Family | DX: M16.12 Unilateral primary osteoarthritis, left hip (principal); M25.552 Pain in left hip; M25.531 Pain in right wrist | CPT/HCPCS: 73110; 73502 ==

== ENCOUNTER → 2023-10-28 13:03 | Outpatient (BNVA) | payer MEDICARE, OTHER, SELFPAY | PROVIDERS: PCP Family Medicine; Visit Provider Internal Medicine | DX: I25.2 Old myocardial infarction (principal); E78.2 Mixed hyperlipidemia; I73.9 Peripheral vascular disease, unspecified; I12.9 Hypertensive chronic kidney disease with stage 1 through stage 4 chronic kidney disease, or unspecified chronic kidney disease; N18.31 Chronic kidney disease, stage 3a; Z87.891 Personal history of nicotine dependence | CPT/HCPCS: 99214 ==

== ENCOUNTER 2023-12-22 06:00 | Outpatient (RCR) | payer MEDICARE, OTHER, SELFPAY | END 2024-01-09 23:59 | disposition home or self-care (01) | LOC: TPT 06:00 | PROVIDERS: Visit Provider Family Medicine | DX: M25.552 Pain in left hip (principal); M54.50 Low back pain, unspecified; G89.29 Other chronic pain | CPT/HCPCS: 97110; 97162 ==

== ENCOUNTER 2024-01-10 06:00 | Outpatient (RCR) | payer MEDICARE, OTHER, SELFPAY | END 2024-02-08 23:59 | disposition home or self-care (01) | LOC: TPT 06:00 | PROVIDERS: Visit Provider Family Medicine | DX: M25.552 Pain in left hip (principal); M54.50 Low back pain, unspecified | CPT/HCPCS: 97110 ==

== ENCOUNTER 2024-02-09 06:00 | Outpatient (RCR) | payer MEDICARE, OTHER, SELFPAY | END 2024-03-10 23:59 | disposition home or self-care (01) | LOC: TPT 06:00 | PROVIDERS: Visit Provider Family Medicine | DX: M25.552 Pain in left hip (principal); G89.29 Other chronic pain; M54.50 Low back pain, unspecified | CPT/HCPCS: 97110 ==

== ENCOUNTER → 2024-03-18 11:55 | Outpatient (BNVA) | payer MEDICARE, OTHER, SELFPAY | PROVIDERS: PCP Family Medicine; Visit Provider Family Medicine | DX: J06.9 Acute upper respiratory infection, unspecified (principal) | CPT/HCPCS: 87426 ==

== ENCOUNTER 2024-03-24 13:52 | Outpatient (CLI) | payer MEDICARE, OTHER, SELFPAY ==
--- NOTE | 2024-03-24 14:30 | CT_ITS ---
WS: [id number] Examination: CT angio chest [id number] Reason for Exam: subclavian stenosis Date: March 24, 2024 Comparison: None. DLP: 1963.[address] scans at [facility] use at least one of these dose optimization techniques: automated e xposure control; mA and/or kV adjustment per patient size (includes targeted exams where dose is matc hed to clinical indication); or iterative reconstruction. Findings: The heart is not enlarged. There is been a median sternotomy and bypass procedure. Small mediastinal and hilar lymph nodes are present without adenopathy. There is diffuse abnormal thickening of the esophagus. There is a hiatal hernia. The thoracic aorta is normal in size. There is no aneurysm or dissection. Atherosclerotic changes wit h calcified plaque disease is identified. There is calcified plaque disease involving the origin and proximal left subclavian artery. Stenosis is thought to be mild to greater. There is calcified plaque disease noted involving the origin of the left common carotid artery. Motio n artifact obscures portions of the vessel at this level. Calcified plaque disease at the left caroti d bifurcation on the left is noted with mild to moderate narrowing. Extensive calcified plaque disease is noted involving the brachiocephalic artery motion artifact obsc ures the fine detail. The right common carotid artery demonstrated scattered calcified plaque disease with mild narrowing. There is calcified plaque disease involving the right subclavian artery. There is no pleural effusion. There is basilar consolidation. No pulmonary emboli are identified. CT/CT angio chest [id number] Impression: There is prominent atherosclerosis of the thoracic aorta and great vessels. The re is extensive calcified plaque involving the brachiocephalic and right subcla vian arteries with suspected significant stenosis. The fine details are obscure d by the amount of calcification and some motion artifact. There is a hiatal hernia with diffuse esophageal thickening.
--- NOTE | 2024-03-24 14:30 | CTR_ITS ---
PROCEDURE INFORMATION: Exam: CTA Head With Contrast, Arteriography Exam date and time: 03/24/2024 2:52 PM Age: 78 years old Clinical indication: Visual disturbance; Type not specified; Prior surgery; Surgery date: 6+ months; Surgery type: Stent in carotid; Patient HX: RT shoulder pain, low blood pressure in RT eye, blurry vision in RT eye; Additional info: Subclavian stenosis, right ica stenosis TECHNIQUE: Imaging protocol: Computed tomographic angiography of the head with contrast. Exam focused on the arteries. 3D rendering (Not supervised by radiologist): MIP and/or 3D reconstructed images were created by the technologist. Radiation optimization: All CT scans at this facility use at least one of these dose optimization techniques: automated exposure control; mA and/or kV adjustment per patient size (includes targeted exams where dose is matched to clinical indication); or iterative reconstruction. Contrast material: OMNI 350; Contrast volume: 75 ml; Contrast route: INTRAVENOUS (IV); COMPARISON: No relevant prior studies available. RADIATION DOSE METRICS: Total DLP (mGy-cm): 1963.09 FINDINGS: ANTERIOR CIRCULATION: Right internal carotid artery: Intracranial segment is patent with no significant stenosis. No aneurysm. Right middle cerebral artery: No occlusion or significant stenosis. No aneurysm. Right anterior cerebral artery: No occlusion or significant stenosis. No aneurysm. Left internal carotid artery: Intracranial segment is patent with no significant stenosis. No aneurysm. Left middle cerebral artery: No occlusion or significant stenosis. No aneurysm. Left anterior cerebral artery: No occlusion or significant stenosis. No aneurysm. POSTERIOR CIRCULATION: Right vertebral artery: No occlusion or significant stenosis. No aneurysm. Left vertebral artery: No occlusion or significant stenosis. No aneurysm. Basilar artery: No occlusion or significant stenosis. No aneurysm. Right posterior cerebral artery: No occlusion or significant stenosis. No aneurysm. Left posterior cerebral artery: No occlusion or significant stenosis. No aneurysm. Brain: No hemorrhage. No edema. Moderate diffuse cerebral atrophy and sequela of chronic small vessel ischemic disease. No mass effect. Cerebral ventricles: No ventriculomegaly. Bones/joints: Unremarkable. No acute fracture. Soft tissues: Unremarkable. PROCEDURE INFORMATION: Exam: CTA Neck With Contrast Exam date and time: 03/24/2024 2:52 PM Age: 78 years old Clinical indication: Visual disturbance; Type not specified; Prior surgery; Surgery date: 6+ months; Surgery type: Stent in carotid; Patient HX: RT shoulder pain, low blood pressure in RT eye, blurry vision in RT eye; Additional info: Subclavian stenosis, right ica stenosis TECHNIQUE: Imaging protocol: Computed tomographic angiography of the neck with contrast. Exam focused on the cervical segments of the vasculature. 3D rendering (Not supervised by radiologist): MIP and/or 3D reconstructed images were created by the technologist. Radiation optimization: All CT scans at this facility use at least one of these dose optimization techniques: automated exposure control; mA and/or kV adjustment per patient size (includes targeted exams where dose is matched to clinical indication); or iterative reconstruction. Contrast material: OMNI 350; Contrast volume: 75 ml; Contrast route: INTRAVENOUS (IV); COMPARISON: CT angio chest [id number] 03/24/2024 2:52 PM RADIATION DOSE METRICS: Total DLP (mGy-cm): 1963.09 FINDINGS: Right common carotid artery: Areas of moderate stenosis in the common carotid. No dissection or occlusion. Right internal carotid artery: Severe stenosis at the origin with an estimated 80% luminal narrowing. No dissection or occlusion. Right external carotid artery: No occlusion or stenosis of the origin. Left common carotid artery: Areas of moderate stenosis of the common carotid. Patent left carotid stent. No dissection or occlusion. Left internal carotid artery: Patent left carotid stent. No dissection or occlusion. Left external carotid artery: No occlusion or stenosis of the origin. Right vertebral artery: Scattered areas of severe stenosis of the right vertebral artery. No dissection or occlusion. Left vertebral artery: No stenosis. No dissection or occlusion. Soft tissues: Normal. No significant soft tissue swelling. Bones/joints: No acute fracture. CT/CT angio headneck* [id number] IMPRESSION: No large vessel occlusion. IMPRESSION: 1. Severe stenosis at the origin of the right internal carotid artery. 2. Patent left carotid stent. 3. Scattered areas of severe stenosis involving the right vertebral artery. 4. Areas of moderate stenosis involving both common carotid arteries. REFERENCES: NASCET CRITERIA. The degree of stenosis in the cervical segment of the internal carotid artery is based on NASCET criteria. Normal is no stenosis. Mild is less than 50% stenosis. Moderate is 50-69% stenosis. Severe is 70% to 99% stenosis. Total occlusion is no detectable patent lumen.
[2024-03-24 14:36] LABS: Blood Urea Nitrogen 17 mg/dL (8-23)
[2024-03-24] MEDS: iohexol 350 mg/mL 500 mL Btl (per mL) IV (15:17)
== END 2024-03-24 13:53 | disposition home or self-care (01) ==
LOC: RAD 13:52
PROVIDERS: PCP Family Medicine; Visit Provider Nurse Practitioner Family
DX: I65.23 Occlusion and stenosis of bilateral carotid arteries (principal); I65.01 Occlusion and stenosis of right vertebral artery; I70.0 Atherosclerosis of aorta; I25.84 Coronary atherosclerosis due to calcified coronary lesion; I77.1 Stricture of artery; K22.2 Esophageal obstruction; K44.9 Diaphragmatic hernia without obstruction or gangrene; Z95.1 Presence of aortocoronary bypass graft; I12.9 Hypertensive chronic kidney disease with stage 1 through stage 4 chronic kidney disease, or unspecified chronic kidney disease; N18.31 Chronic kidney disease, stage 3a; Z87.891 Personal history of nicotine dependence
CPT/HCPCS: 70496; 70498; 71275; 82565; 84520; 99214; Q9967

== ENCOUNTER → 2024-04-15 10:08 | Outpatient (BNVA) | payer MEDICARE, OTHER, SELFPAY | PROVIDERS: PCP Family Medicine; Visit Provider Family Medicine | DX: N18.31 Chronic kidney disease, stage 3a (principal); R73.9 Hyperglycemia, unspecified; E55.9 Vitamin D deficiency, unspecified | CPT/HCPCS: 80048; 81003; 82040; 82306; 82310; 82728; 83036; 83540; 83550; 83735; 83970; 84100; 84466; 84550 ==

== ENCOUNTER → 2024-04-29 14:46 | Outpatient (BNVA) | payer MEDICARE, OTHER, SELFPAY | PROVIDERS: PCP Family Medicine; Visit Provider Internal Medicine | DX: I25.2 Old myocardial infarction (principal); I10 Essential (primary) hypertension; E78.2 Mixed hyperlipidemia; I73.9 Peripheral vascular disease, unspecified; Z87.891 Personal history of nicotine dependence | CPT/HCPCS: 99214 ==

== ENCOUNTER → 2024-05-31 14:21 | Outpatient (BNVA) | payer MEDICARE, OTHER, SELFPAY | PROVIDERS: Visit Provider Nurse Practitioner Family | DX: J42 Unspecified chronic bronchitis (principal); R05.8 Other specified cough; Z98.890 Other specified postprocedural states; Z96.7 Presence of other bone and tendon implants | CPT/HCPCS: 71046 ==

== ENCOUNTER → 2024-11-04 14:09 | Outpatient (BNVA) | payer MEDICARE, OTHER, SELFPAY | PROVIDERS: PCP Internal Medicine; Visit Provider Internal Medicine | DX: I12.9 Hypertensive chronic kidney disease with stage 1 through stage 4 chronic kidney disease, or unspecified chronic kidney disease (principal); N18.31 Chronic kidney disease, stage 3a; E78.2 Mixed hyperlipidemia; I25.2 Old myocardial infarction; Z87.891 Personal history of nicotine dependence; I73.9 Peripheral vascular disease, unspecified | CPT/HCPCS: 99213 ==

== ENCOUNTER 2025-04-11 01:00 | Inpatient (IN) | payer MEDICARE, OTHER, SELFPAY ==
--- OUTSIDE RECORDS SUMMARY | 2024-02-10 12:00 | XMS_ITS ---
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 Name Role Phone Shyam Crook Primary Care Provider MEGA Capellan Unavailable [phone] Emre GUZMAN, Luzmaria Unavailable Unavailable LEE HOOK [phone] REASON FOR VISIT 4 wk post op Encounters Encounter Location Date Provider Diagnosis [facility] [address] [place] [address] 02/10/2024 LEE HOOK Plan Of Treatment Next Appt Details Provider Name:MEGA Doe, 06/21/2025 02:40:00 PM, [address] [place], [address], Progress Notes * Chris CARBAJAL DDOB:1945 (79 yo M)Acc No.[id number]:02/10/2024 Patient: Chris PATEL Provider: Clare Hook APRN :1945 A ge:78 Y S ex:Male Date:02/10/2024 Address:[address] [id number] Pcp:Shyam Crook Subjective: * Chief Complaints: * 1 . 4 wk post op. * Medical History: Objective: * Vitals: Assessment: Plan: * Treatment: * Billing Information: * Visit Code: * Procedure Codes: * Electronic signature of SHORTY HOOK APRN on 04/11/2025 at 01:09 AM CDT Sign off status: Pending * Provider: Clare Hook APRN Date: 02/10/2024 Generated for Elton sanders/Demetria/Amber on: 04/11/2025 01:09 AM CDT
[2025-04-11] VITALS (62 sets, daily range): BP systolic 78–142; BP diastolic 52–89; PULSE 119–145; RESP 9–26; TEMP 35.7–37; O2SAT 82–98; BMI 25.9
--- OUTSIDE RECORDS SUMMARY | 2025-04-11 01:09 | XMS_ITS | Encounter Summary ---
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
--- OUTSIDE RECORDS SUMMARY | 2025-04-11 01:09 | XMS_ITS | Clinical Summary ---
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
--- OUTSIDE RECORDS SUMMARY | 2025-04-11 01:09 | XMS_ITS | Patient Health Record ---
Author Organization [facility] Address [address] [place] [address] Care Team Providers Care Sales Service Rep Name Role Phone Crook, Shyam Primary Care Provider [phone] Marilou Coles Unavailable [phone] Luzmaria Andrea Unavailable Unavailable Sydney Box Unavailable [phone] Allergies No Known Allergies Results Component Value Reference Range Flag Notes CBC w\ Auto Diff 91095 Reviewed date:07/01/2024 11:57:04 AM Interpretation: Performing Lab: Notes/Report: Diagnosis Description: Myalgia, unspecified site WBC 4.4 4.5-11.0 X10'3 LOW RBC 3.56 4.50-5.90 X10'6 LOW Hgb 11.5 13.5-17.5 G/DL LOW Hct 35.6 41.0-53.0 % LOW MCV 100.0 80.0-100.0 FL MCH 32.3 27.0-31.0 PG HI MCHC 32.3 31.0-37.0 G/DL Platelet 191 150-400 X10'3 RDW-SD 45.5 35.0-49.0 FL RDW-CV 12.4 12.2-15.6 % MPV 10.9 9.2-12.0 FL Neutro Auto% 58.7 40.0-70.0 % Lymph Auto% 23.8 22.0-44.0 % [place] Auto% 15.4 3.0-7.0 % HI Eos Auto% 1.4 2.0-4.0 % LOW Baso Auto% 0.5 0.0-1.0 % Imm Gran% .2 .0-.4 % Neutro Abs 2.59 .80-7.70 Absolute Neutrophil Count 2590 NA Lymph Abs 1.05 .10-4.10 [place] Abs .68 .20-1.00 Eos Abs .06 .00-.40 Baso Abs .02 .00-.20 Imm Gran Abs .01 .00-.10 NRBC# .00 .00-.20 NRBC% .00 .00-.20 /100 int act WBC's Comprehensive Metabolic Pane l (CMP) 74200 Reviewed date:07/01/2024 11:57:07 AM Interpretation: Performing Lab: Notes/Report: Diagnosis Description: Myalgia, unspecified site Glucose Serum 111 71-110 MG/DL HI Testing p erformed at [facility], [address] [place] [address] [place] [address]. CLIA ID#: [id number] BUN 18 7-21 MG/DL Creat 1.39 .57-1.17 MG/DL HI I-mtxauk-c-benzoquinone imine (NAPQI) is a metabolite of acetaminophen, NAPQI concentrations of apparoximately 10 mg/L correlation to toxic levels of acetaminophen demonstrates a greater than or equil to 10% change in results. NAPQI concentrations greater than this may lead to falsely depressed results for patient samples. Use of this assay is not recommended for patients undergoing treatment with phenindione, due to the potential for falsely depressed results. GFR 51.3 NA Calculation pe rformed from GFR calculator provided by the [employer]. Glomerular Filtration rate(GRF) is the best overall index of kidney function. Normal GFR varies according to age,sex, body size, and declines with age. The [employer] recommends using the CKD-EPI Creatinine Equation(2020) to estimate GFR. BUN/Creat Ratio 12.9 12.0-20.0 % Total Protein 6.5 5.8-8.0 G/DL Albumin 4.3 3.2-4.8 G/DL Globulin 2.1 2.3-3.5 G/DL LOW Alb/Glob 2.0 0.8-2.2 Calcium 9.6 8.7-10.4 MG/DL Sodium 136 136-145 MMOL/L Potassium 4.4 3.5-5.1 MMOL/L Chloride 104 98-107 MMOL/L CO2 26.0 20.0-31.0 MMOL/L Anion Gap 10 5-15 Alk Phos 52 46-116 Bili Total .4 .3-1.2 MG/DL Use of this assay is not recommended for patients undergoing treatment with eltrombopag due to the potential for falsely elevated results. AST/SGOT 19 15-37 UNIT/L ALT/SGPT 14 12-78 UNIT/L Osmo Serum,Calculated 285 280-300 MOSM/KG Folate 49294 Reviewed date:07/01/2024 11:58:01 AM Interpretation: Performing Lab: Notes/Report: Diagnosis Description: Myalgia, unspecified site Folate >24.00 5.38-24.00 ng/mL Referenc e Range: 5.38->24.00. Patient dosage up to or equal to 50 ng/ml of Biotin (vitamin B7) can potentially increase or decrease results of folate assay with a less than 10% bias. Concentrations of Biotin greater than 50ng/ml can potentially increase or decrease results of Folate assay with a greater than 10% bias. Sedimentation Rate 10860 Reviewed date:07/01/2024 11:43:41 AM Interpretation: Performing Lab: Notes/Report: Diagnosis Description: Myalgia, unspecified site Sed Rate 7 0-20 MM/HR Thyroid Stimulating Hormone (TSH) 66451 Reviewed date:07/01/2024 11:57:56 AM Interpretation: Performing Lab: Notes/Report: Diagnosis Description: Myalgia, unspecified site TSH 1.628 .358-3.740 MlU/ML Vitamin B12 (B) 99562 Reviewed date:07/01/2024 11:57:46 AM Interpretation: Performing Lab: Notes/Report: Diagnosis Description: Myalgia, unspecified site [id number] 1302 211-911 pg/mL HI % Iron Saturation (Fe & TIBC )--33130,57842 Reviewed date:07/01/2024 11:55:52 AM Interpretation: Performing Lab: Notes/Report: Diagnosis Description: Myalgia, unspecified site Iron 65 65-175 MCG/DL Per Iron as say instruction for Use(IFU), patients treated with metal-binding drugs (e.g.deferoxamine) may have depressed iron values as chelated iron may not properly react in the iron assay. Testing was performed with this assay method. TIBC 280 250-450 NG/DL % Iron Saturation 23 20-50 % Reason For Referral No Information Medications Medication SIG (Take, Route, Frequency, Duration) Notes Start Date End Date Status traZODone HCl 150 MG Tablet 1 tablet at bedtime Orally Once a day; Duration: 30 days Active Flonase 50 MCG/ACT Suspension 2 spray in each nostril Nasally Once a day Unknown Potassium Chloride ER 10 mEq Tablet Extended Release TAKE 1 TABLET BY MOUTH TWICE DAILY; Duration: 30 Active Ketoconazole 2 % Cream 1 application Externally Once a day Unknown Magnesium 400 MG Capsule 1 tablet with a meal Orally Once a day Unknown Prevacid 30 MG Capsule Delayed Release 1 capsule before a meal Orally Once a day Unknown ZyrTEC Allergy 10 MG Tablet 1 tablet Orally Once a day Not-Taking Tamsulosin HCl 0.4 MG Capsule 1 capsule Orally Once a day; Duration: 30 day(s) Not-Taking MiraLax 17 GM Packet 1 packet mixed with 8 ounces of fluid Orally Once a day Not-Taking Benefiber - Powder as directed Orally Unknown Clopidogrel Bisulfate 75 MG Tablet 1 tablet Orally Once a day; Duration: 30 days Active Cyanocobalamin 5000 MCG Capsule as directed Orally Active Tylenol 325 MG Tablet 1 tablet as needed Orally every 6 hrs Active Fluticasone Propionate 50 MCG/ACT Suspension 1 spray in each nostril Nasally Twice a day Active Isosorbide Mononitrate ER 30 MG Tablet Extended Release 24 Hour 1 tablet Orally TWICE A DAY Active Montelukast Sodium 10 MG Tablet 1 tablet Orally Once a day Active Potassium Gluconate 595 (99 K) MG Tablet 1 tablet Orally Once a day Not-Taking Reglan 10 MG Tablet 1 tablet as directed Orally once; Duration: 1 day 10/02/2022 Not-Taking Melatonin 10 MG Tablet 1 TABLET Orally ONCE A DAY Active Ashly 180 MG Tablet 1 tablet Swallow whole with water; do not take with fruit juices. Orally Once a day Active Finasteride 5 MG Tablet 1 tablet Orally Once a day Active Furosemide 20 MG Tablet 1/2 tablet Orally Once a day; Duration: 30 days Furosemide 10mg daily 09/10/2017 06/05/2025 Active Vitamin D3 25 MCG (1000 UT) Capsule 1 capsule Orally Once a day Active DULoxetine HCl 40 MG Capsule Delayed Release Particles 1 capsule Orally Once a day; Duration: 90 days 06/17/2024 Active amLODIPine Besylate 5 mg Tablet TAKE 1 TABLET BY MOUTH TWICE DAILY; Duration: 30 Active Levothyroxine Sodium 50 MCG Tablet 1 tablet in the morning on an empty stomach Orally Once a day; Duration: 90 days Active Losartan Potassium 50 mg Tablet TAKE ONE TABLET BY MOUTH ONCE a day; Duration: 30 Active Esomeprazole Magnesium 40 mg Capsule Delayed Release TAKE ONE CAPSULE BY MOUTH 30 TO 60 minutes before morning meal; Duration: 30 Active Rosuvastatin Calcium 10 mg Tablet TAKE 1 TABLET BY MOUTH ONCE a day; Duration: 30 Active clonazePAM 0.5 MG Tablet 1 tablet Orally Once a day; Duration: 7 days Stop this medicine after seven days. 06/17/2024 Not-Taking Immunizations Vaccine Route Administration Date Status Comme nts Influenza (whole), CPT 89566 Inactive Unknown 05/11/2018 Administered Influenza, seasonal, injecta ble (split), for 3 yrs and up Unknown 05/11/2019 Administered Pneumovax 23 Unknown 06/14/2015 Administered Influenza (whole), CPT 08647 Inactive Unknown 09/10/2017 Administered Influenza (whole), CPT 45381 Inactive Unknown 06/04/2017 Administered Social History Tobacco Use: Social History Observation Description Date Details (start date - stop date) Former Smoker NA - NA Social History Depression Screening Social Info Question Answer Notes depression screening findings Findings Positive (9+ without suicidality) 11/25/24 PHQ-9 Little interest or pleasure in doing things More than half the days Feeling down, depressed, or hopeless More than h longterm the days Trouble falling or staying asleep, or sleeping t oo much Nearly every day Feeling tired or having little energy Nearly oniel day Poor appetite or overeating Nearly every day Feeling bad about yourself, or that you are a failure, or have let yourself or your family down Nearly every day Trouble concentrating on thi ngs, such as reading the newspaper or watching television Nearly every day Moving or speaking so slowly that other people could have noticed. Or the opposite ? being so fidgety or restless that you have been moving around a lot more than usual Nearly every day Thoughts that you would be b adriana off , or of hurting yourself in some way Not at all Total Score 22 Interpretation Severe Depression Drugs/Alcohol: Social Info Question Answer Notes Drugs Have you used drugs other than those for medical reasons in the past 12 months? No Household: Social Info Question Answer Notes Household Marital status: Drug/Alcohol: Social Info Question Answer Notes AUDIT-C (Standard) Did you have a drink containing alcohol in the past year? No Points 0 Interpretation Negative Tobacco Use: Social Info Question Answer Notes Tobacco Control (Standard) Tobacco use: Former smoker How long has it been since you last smoked? Greater than 10 years Additional Details Category Social Info Options Details Miscellaneous: Marital status: Living with: spouse : no serv ice, Drugs/Alcohol: Do you smoke marijuana? De nies Do you drink alcohol? No zzMigrated Social History Migrated Social History Smoking Status:Ex-smoker (finding) Section Notes: Reported depression score to Yany at Dr. Boland office. former smoker TOB:06/17/24 DEP: 06/17/24 TOB:06/17/24 DEP: 06/17/24 TOB:06/17/24 DEP: 06/17/24 CIME Dep/tob - 11/25/24 former smoker 06/17/24 06/17/24 Problems Problem Type SNOMED Code ICD Code Onset Dates Problem Status W/U Status Risk Notes Problem Iron deficiency (97082565) Iron deficiency (E61.1) Active confirmed Problem Chronic kidney disease due to hypertension (400015471290204) Hypertensive chronic kidney disease with stage 1 through stage 4 chronic kidney disease, or unspecified chronic kidney disease (I12.9) Active confirmed Problem Occlusion and stenosis of multiple and bilateral cerebral arteries (844233052) Occlusion and stenosis of bilateral carotid arteries (I65.23) Active confirmed Problem Intermittent claudication of bilateral lower limbs co-occurrent and due to atherosclerosis (5827420449376718 8) Atherosclerosis of wales arteries of extremities with intermittent claudication, bilateral legs (I70.213) Active confirmed Problem Tubulointerstitia l nephritis (disorder) (694405125) Renal tubulo-intersti tial disease, unspecified (N15.9) Active confirmed Problem History of peripheral vascular angioplasty (4707722662328778 0) Peripheral vascular angioplasty status with implants and grafts (Z95.820) Active confirmed Problem Right testicular pain (7105294834196645 7) Right testicular pain (N50.811) Active confirmed Problem Chronic kidney disease stage 3 (disorder) (139709136) CKD (chronic kidney disease), stage III (N18.3) Active confirmed Problem Hyperuricemia (12854015) Hyperuricemia (E79.0) Active confirmed Problem Vitamin D deficiency (37969432) Vitamin D deficiency (E55.9) Active confirmed Problem Former smoker (0412610) Former smoker (Z87.891) Active confirmed Problem Hypertension (87218783) HTN (hypertension) (I10) Active confirmed Problem Chronic interstitial cystitis (667521217) Interstitial cystitis (N30.10) Active confirmed Problem Long-term current use of drug therapy (494060834) Antiplatelet or antithrombotic long-term use (Z79.02) Active confirmed Problem Acquired hypothyroidism (964756482) Acquired hypothyroidism (E03.9) Active confirmed Problem Generalized anxiety disorder (46696142) CANDE (generalized anxiety disorder) (F41.1) Active confirmed Problem Iron deficiency anemia (37430742) Iron deficiency anemia (D50.9) Active confirmed Problem Hyperlipidemia (37844194) Hyperlipidemia (E78.5) Active confirmed Problem Benign prostatic hypertrophy with outflow obstruction (530703237) BPH loc w urin obs/LUTS (N40.1) Active confirmed Problem Benign prostatic hypertrophy with outflow obstruction (507140502) BPH NOS w ur obs/LUTS (N40.1) Active confirmed Problem Stricture of artery (78200253) 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) Active confirmed Problem Hunner's ulcer (87029253) Hunner's ulcer (N30.10) Active confirmed Problem Chronic kidney disease stage 3A (disorder) (683819290) Chronic kidney disease, stage 3a (N18.31) Active confirmed Problem Chronic kidney disease stage 3 (disorder) (963169777) Stage 3 chronic kidney disease, unspecified whether stage 3a or 3b CKD (N18.30) Active confirmed Problem Stricture of artery (45229775) 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) Active confirmed Problem 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 (528836791068198) 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) Active confirmed [id number] ed Description:Kaur nary arteriosclerosis Problem Ischemic cardiomyopathy (503854959) Ischemic cardiomyopathy (I25.5) Active confirmed [id number] m ed Description:Gene ralized ischemic myocardial dysfunction Problem Intermittent claudication of left lower limb co-occurrent and due to atherosclerosis (finding) (4134737300597181 0) Atherosclerosis of w[place] arteries of extremities with intermittent claudication, left leg (I70.212) Active confirmed [id number] m ed Description:Inte rmittent claudication due to atherosclerosis of wales artery of limb Problem Chest pain (90896087) Other chest pain (R07.89) Active confirmed [id number] om ed Description:Ches t discomfort Problem Bypass stent graft present (622678992207628) Presence of aortocoronary bypass graft (Z95.1) Active confirmed [id number]-Slj m ed Description:Hist ory of coronary artery bypass grafting Problem Essential hypertension (54415246) Essential primary hypertension (I10) Active confirmed [id number] m ed Description:Esse ntial hypertension Vital Signs Heart Rate 60 /min 11/25/2024 Temperature 97.8 degrees Fahrenheit 11/25/2024 Blood pressure diastolic 60 mm Hg 11/25/2024 Oximetry 97 % 11/25/2024 Height-cm 170.18 cm 11/25/2024 Weight-kg 82.55 kg 11/25/2024 Height 67 in 11/25/2024 Blood pressure systolic 135 mm Hg 11/25/2024 Weight 182 lbs 11/25/2024 BMI 28.5 kg/m2 11/25/2024 Encounters Encounter Location Date Provider Diagnosis [facility] [address] [place] [address] Dr Orellana [address] [place] [address] 04/22/2024 Marilou Herrtoff Renal tubulo-interstitial disease, unspecified N15.9 ; Chronic kidney disease, stage 3a N18.31 ; HTN (hypertension) I10 ; Vitamin D deficiency E55.9 ; Hyperuricemia E79.0 ; Iron deficiency anemia D50.9 and Hypertensive chronic kidney disease with stage 1 through stage 4 chronic kidney disease, or unspecified chronic kidney disease I12.9 [facility] [address] [place] [address] 06/17/2024 Shyam Crook Muscular aches M79.1 0 ; Hyperlipidemia E78.5 ; BPH loc w urin obs/LUTS N40.1 ; Hypertensive chronic kidney disease with stage 1 through stage 4 chronic kidney disease, or unspecified chronic kidney disease I12.9 ; Chronic kidney disease N18.9 ; Former smoker Z87.891 ; Depression screen Z13.31 ; Essential primary hypertension I10 and HTN (hypertension) I10 [facility] [address] [place] [phone] 07/01/2024 Shyam Crook CANDE (generalized anxiety disorder) F41.1 ; Hypertensive chronic kidney disease with stage 1 through stage 4 chronic kidney disease, or unspecified chronic kidney disease I12.9 ; Chronic kidney disease N18.9 ; Former smoker Z87.891 and HTN (hypertension) I10 [facility] [address] [place] [phone] 07/29/2024 Shyam Crook Hypertension with renal disease I12.9 ; Hyperlipidemia E78.5 ; Chronic kidney disease, stage 3a N18.31 ; Depression screen Z13.31 and Essential primary hypertension I10 [facility] [address] [place] [phone] 08/24/2024 Shyam Crook Acquired hypothyroidism E03.9 and HTN (hypertension) I10 [facility] [address] [address] 11/25/2024 Shyam Crook HTN (hypertension) I10 ; Acute bilateral low back pain without sciatica M54.50 ; Hyperlipidemia E78.5 ; BPH loc w urin obs/LUTS N40.1 ; Former smoker Z87.891 and Depression screen Z13.31 [facility] [address] [place] [address] Dr Orellana [address] [place] [address] 04/15/2024 Sydney Box Chronic kidney disease, stage 3a N18.31 ; Hyperuricemia E79.0 ; Vitamin D deficiency E55.9 and Iron deficiency E61.1 [facility] [address] [place] [phone] 07/01/2024 Shyam Crook [facility] [address] [place] [phone] 10/26/2024 [facility] [address] [place] [address] 10/26/2024 [facility] [address] [place] [address] 11/18/2024 [facility] [address] [place] [address] 01/04/2025 [facility] [address] [place] [address] 02/15/2025 [facility] [address] [place] [address] 04/06/2025 [facility] Assessments Encounter Date Diagnosis (ICD Code) Assessment Notes Treatment Notes Treatment Clinical Notes Section Notes 04/15/2024 Chronic kidney disease, stage 3a (ICD-10 - N18.31) 06/17/2024 Muscular aches (ICD-10 - M79.10) 06/17/2024 Hyperlipidemia (ICD-10 - E78.5) 04/22/2024 Renal tubulo-intersti tial disease, unspecified (ICD-10 - N15.9) CKD stage 3a is stable. Hypertension is controlled in clinic. BPH management per Urology. Gout is controlled. Vitamin D deficiency is above goal. Anemia is at goal per previous records but he is iron deficient without supplementati on. 04/22/2024 Chronic kidney disease, stage 3a (ICD-10 - N18.31) CKD stage 3a is stable. Hypertension is controlled in clinic. BPH management per Urology. Gout is controlled. Vitamin D deficiency is above goal. Anemia is at goal per previous records but he is iron deficient without supplementati on. 07/01/2024 CANDE (generalized anxiety disorder) (ICD-10 - F41.1) 07/01/2024 Hypertensive chronic kidney disease with stage 1 through stage 4 chronic kidney disease, or unspecified chronic kidney disease (ICD-10 - I12.9) 08/24/2024 Acquired hypothyroidism (ICD-10 - E03.9) 08/24/2024 HTN (hypertension) (ICD-10 - I10) 11/25/2024 HTN (hypertension) (ICD-10 - I10) good control g 11/25/2024 Acute bilateral low back pain without sciatica (ICD-10 - M54.50) 07/29/2024 Hypertension with renal disease (ICD-10 - I12.9) 07/29/2024 Hyperlipidemia (ICD-10 - E78.5) 07/29/2024 Chronic kidney disease, stage 3a (ICD-10 - N18.31) 11/25/2024 Hyperlipidemia (ICD-10 - E78.5) continue current therapy 07/01/2024 Chronic kidney disease (ICD-10 - N18.9) 04/22/2024 HTN (hypertension) (ICD-10 - I10) CKD stage 3a is stable. Hypertension is controlled in clinic. BPH management per Urology. Gout is controlled. Vitamin D deficiency is above goal. Anemia is at goal per previous records but he is iron deficient without supplementati on. 06/17/2024 BPH loc w urin obs/LUTS (ICD-10 - N40.1) 04/15/2024 Hyperuricemia (ICD-10 - E79.0) 04/15/2024 Vitamin D deficiency (ICD-10 - E55.9) 06/17/2024 Hypertensive chronic kidney disease with stage 1 through stage 4 chronic kidney disease, or unspecified chronic kidney disease (ICD-10 - I12.9) 04/22/2024 Vitamin D deficiency (ICD-10 - E55.9) CKD stage 3a is stable. Hypertension is controlled in clinic. BPH management per Urology. Gout is controlled. Vitamin D deficiency is above goal. Anemia is at goal per previous records but he is iron deficient without supplementati on. 07/01/2024 Former smoker (ICD-10 - Z87.891) 11/25/2024 BPH loc w urin obs/LUTS (ICD-10 - N40.1) He follows with urology 07/29/2024 Depression screen (ICD-10 - Z13.31) 07/29/2024 Essential primary hypertension (ICD-10 - I10) [id number] nomed Description:E ssential hypertension 11/25/2024 Former smoker (ICD-10 - Z87.891) 07/01/2024 HTN (hypertension) (ICD-10 - I10) 04/22/2024 Hyperuricemia (ICD-10 - E79.0) CKD stage 3a is stable. Hypertension is controlled in clinic. BPH management per Urology. Gout is controlled. Vitamin D deficiency is above goal. Anemia is at goal per previous records but he is iron deficient without supplementati on. 06/17/2024 Chronic kidney disease (ICD-10 - N18.9) 04/15/2024 Iron deficiency (ICD-10 - E61.1) 06/17/2024 Former smoker (ICD-10 - Z87.891) 04/22/2024 Iron deficiency anemia (ICD-10 - D50.9) CKD stage 3a is stable. Hypertension is controlled in clinic. BPH management per Urology. Gout is controlled. Vitamin D deficiency is above goal. Anemia is at goal per previous records but he is iron deficient without supplementati on. 11/25/2024 Depression screen (ICD-10 - Z13.31) 06/17/2024 Depression screen (ICD-10 - Z13.31) 06/17/2024 Essential primary hypertension (ICD-10 - I10) [id number] nomed Description:E ssential hypertension 04/22/2024 Hypertensive chronic kidney disease with stage 1 through stage 4 chronic kidney disease, or unspecified chronic kidney disease (ICD-10 - I12.9) CKD stage 3a is stable. Hypertension is controlled in clinic. BPH management per Urology. Gout is controlled. Vitamin D deficiency is above goal. Anemia is at goal per previous records but he is iron deficient without supplementati on. 06/17/2024 HTN (hypertension) (ICD-10 - I10) 04/22/2024 Other Continue finasteride and follow up with Urology for urinary complaints. Continue cholecalciferol, monitor hyperparathyroidism labs. Continue losartan and amlodipine, monitor blood pressure daily with goal less than 130/80. Call with daily blood pressure log in 2 weeks. Dose medications for GFR less than 60 mL/min. Recommend following a low sodium diet. Avoid nephrotoxins and NSAIDs.Recommend starting iron 325 mg daily on Friday, Friday and Friday; monitor Hgb and iron studies. Follow up in 12 months with labs at [facility] [place], [place]. BMP, mag, uric, phos, PTH, UA The patient was instructed to follow up with their PCP for preventative health screenings. CKD stage 3a is stable. Hypertension is controlled in clinic. BPH management per Urology. Gout is controlled. Vitamin D deficiency is above goal. Anemia is at goal per previous records but he is iron deficient without supplementati on. 06/17/2024 Other Venipuncture performed by Padma Fragoso. Left arm/hand. One attempt. Pt tolerated well, bleeding controlled with light dressing. Lab sent to [facility] via ict support engineer. 07/29/2024 Other All patient's questions are encouraged and addressed to their apparent satisfaction. They are agreeable with the proposed plan of care and deny further needs or concerns. I am happy to see patient prior to next office visit as needed for acute concerns. Plan Of Treatment Pending Test Test Name Order Date Blood Urea Nitrogen (BUN) 15411 05/23/20 20 Creatinine (B) 83050 05/23/2020 Electrocardiogram 12 Lead Tracing-55582 12/16/2022 Albumin 30600 02/23/2024 Basic Metabolic Panel (BMP) 66181 2023 Ferritin 55761 02/23/2024 Hemoglobin 44143 02/23/2024 Iron Binding Capacity Total 44669 2023 Iron Level 80321 02/23/2024 Magnesium (B) 48803 02/23/2024 Phosphorus (B) 22235 02/23/2024 Uric Acid (B) 34529 02/23/2024 Vitamin D Total (B) 07119 02/23/2024 UA Reflex Micro, Reflex Cult 79155, 8101 5, 22300 02/23/2024 PTH Intact [address]61 02/23/2024 % Iron Saturation (Fe & TIBC)--81965,835 50 02/23/2024 Future Test Test Name Order Date Albumin 34932 04/15/2024 Basic Metabolic Panel (BMP) 57957 2023 Ferritin 30543 04/15/2024 Hemoglobin 84307 04/15/2024 Iron Binding Capacity Total 89719 2023 Iron Level 49715 04/15/2024 Magnesium (B) 36645 04/15/2024 Phosphorus (B) 65731 04/15/2024 Uric Acid (B) 77791 04/15/2024 Vitamin D Total (B) 77543 04/15/2024 UA Reflex Micro, Reflex Cult 64598, 8101 5, 82298 04/15/2024 PTH Intact 41557 04/15/2024 % Iron Saturation (Fe & TIBC)--95573,835 50 04/15/2024 Basic Metabolic Panel (BMP) 59984 2024 Ferritin 28738 04/11/2025 Hemoglobin 25493 04/11/2025 Phosphorus (B) 33748 04/11/2025 Protein (U) Random 07824 04/11/2025 Uric Acid (B) 94771 04/11/2025 Microalbumin (U) Random 43246 04/11/2025 Creatinine (U) 08962 04/11/2025 UA Reflex Micro, Reflex Cult 57825, 8101 5, 21983 04/11/2025 PTH Intact 29587 04/11/2025 % Iron Saturation (Fe & TIBC)--04884,835 50 04/11/2025 Next Appt Details Provider Name:Chester Xiong, 04/25/2025 01:00:00 PM, [address] [place] [address], [facility] [address], [address], Provider Name:Shyam Crook, 05/26/2025 10:00:00 AM, [address] [place] [address], [address], Insurance Providers Payer Name Payer Address Payer Phone Subscriber Number Group Number Insured Name Patient Relationship to Insured Coverage Start Date Coverage End Date [place] Medicare [address] CHRIS FERRARA [phone] [id number] SAL CARBAJAL Self - patient is the insured [facility] Insurance [address] [address] DEEPAK MANUEL [phone] [id number] SAL CARBAJAL Self - patient is the insured Medical (General) History Medical History History ICD Code At risk for falls Chronic interstitial cystitis Chronic kidney disease stage 3 Depressive disorder Constipation Gastroesophageal reflux disease Gout Hiatal hernia Hypercholesterolemia Sleep apnea Hypertension Parkinson's Disease Seasonal Allergies Dementia Coronary Artery Disease Arthritis Anxiety Myocardial Infarction BPH Surgical History Surgery Date(Month/Year) coronary artery bypass graft X3 1998 bladder biopsy 08/2009 Casting right arm fracture left internal carotid stent 02/19/2019 bladder hydrodistintion, DMSO, bladder c auterization 2012,13,15,15,18, 22 vasectomy Open reduction internal fixation of left tibial plateau 10/15/2011 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
--- NOTE | 2025-04-11 01:10 | XRR_ITS ---
PROCEDURE INFORMATION: Exam: XR Chest Exam date and time: 04/11/2025 1:09 AM Age: 79 years old Clinical indication: Chest pressure; Prior surgery; Surgery date: 6+ months; Surgery type: Cabg; C/O chest pain with tachycardia; Additional info: Cp TECHNIQUE: Imaging protocol: Radiologic exam of the chest. Views: 1 view. COMPARISON: CR XR chest 2V* [id number] 05/31/2024 2:47 PM FINDINGS: Lungs: Low lung volumes. Few nonspecific although chronic appearing strands. Pleural spaces: Unremarkable. No pleural effusion. No pneumothorax. Heart/Mediastinum: Post cardiac surgery residuals. Bones/joints: Mild degenerative changes of bilateral AC joints. XR/XR chest 1V portable 28746 IMPRESSION: No definite acute infiltrate or effusion.
--- NOTE | 2025-04-11 01:10 | ECG_ITS ---
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 Measurements Intervals [place] Rate: 134 P: -73 VA: 194 QRS: 39 QRSD: 202 T: 262 QT: 371 QTc: 555 Interpretive Statements WIDE COMPLEX TACHYCARDIA, POSSIBLE VENTRICULAR TACHYCARDIA VERSUS SUPRAVENTRICULAR TACHYCARDIA WITH LEFT BUNDLE BRANCH BLOCK MARKED ST ELEVATION, CONSIDER ANTERIOR INJURY [MARKED ST ELEVATION W/O NORMALLY INFLECTED T-WAVE IN V2-V5] ST ELEVATION, CONSIDER INFERIOR INJURY [MARKED ST ELEVATION W/O NORMALLY INFLECTED T-WAVE IN II/aVF] ACUTE MS Compared to ECG 08/28/2021 13:35:19 WIDE COMPLEX TACHYCARDIA IS NEW ST AND T wave deviation now present Sinus bradycardia no longer present Electronically Signed On 04-11-2025 13:34:09 CDT by Rafael Jose M.D. [email or web address]
--- OUTSIDE RECORDS SUMMARY | 2025-04-11 01:10 | XMS_ITS | Patient Health Record ---
Author Organization [facility], [facility] Address [address] [place] [address] Care Team Providers Care Phlebotomy Instructor Name Role Phone Shyam Crook Primary Care Provider SOLOMON Capellan Unavailable [phone] Emre GUZMAN, Luzmaria Unavailable Unavailable Allergies No Known Allergies Results Component Value Reference Range Notes Urinalysis, Routine Reviewed date:12/21/2024 04:44:51 PM Interpretation: Performing Lab: Notes/Report: Urine-Color yellow Appearance clear Glucose - Bilirubin - Ketones - Specific [place] 1.010 Occult Blood - pH 6.0 Urine Protein - Urobilinogen,Semi-Qn - Nitrite, Urine - WBC Esterase - Reason For Referral No Information Medications Medication SIG (Take, Route, Frequency, Duration) Notes Start Date End Date Status Isosorbide Mononitrate ER 30 MG 1 tablet in the morning Orally Twice daily Active Finasteride 5 MG 1 tablet Orally Once a day /2 tab Active Furosemide 20 MG 1/2 tablet Orally Once a day Furosemide 10mg daily 09/10/2017 Active Rosuvastatin Calcium 10 MG 1 tablet Orally Once a day Active Flonase 50 MCG/ACT 2 spray in each nostril Nasally Once a day *Reorder from ThisNext for eRx and Interaction Alerts* Active Losartan Potassium 25 MG 1 tablet Orally Once a day Active Montelukast Sodium 10 MG 1 tablet Orally Once a day Active Magnesium 250 MG 1 tablet with a meal Orally Once a day Active Prevacid 30 MG 1 capsule before a meal Orally Once a day Active Ketoconazole 2 % 1 application Externally Once a day Active clonazePAM 1 MG 1 tablet Orally Once a day Active Potassium Gluconate 595 (99 K) MG 1 tablet Orally Once a day Not-Taking Donepezil HCl 10 MG 1 tablet at bedtime Orally Once a day Not-Taking Clopidogrel Bisulfate 75 MG 1 tablet Orally Once a day Active Vitamin B12 1000 MCG 1 tablet Orally Once a day Active Voltaren-XR Active Vitamin D3 25 MCG (1000 UT) 1 capsule Orally Once a day Active MiraLax 17 GM 1 packet mixed with 8 ounces of fluid Orally Once a day Not-Taking Benefiber Not-Taking traZODone HCl 150 MG 1 tablet at bedtime Orally Once a day Active Zinc Active amLODIPine Besylate 5 MG 1 tablet Orally Twice a day; Duration: 30 day(s) Active Ashly Active Immunizations Vaccine Route Administration Date Status Comme nts Pneumovax 23 Unknown 06/14/2015 Administered Immunizati on Given by from source eCW:: Influenza, seasonal, injectable (split), for 3 yrs and up Unknown 05/11/2019 Administered Immunization Gi manuela by from source eCW:: Influenza (whole), CPT 02485 Inactive Unknown 06/04/2017 Administered Influenza (whole), CPT 58113 Inactive Unknown 09/10/2017 Administered Influenza (whole), CPT 53436 Inactive Unknown 05/11/2018 Administered Problems Problem Type SNOMED Code ICD Code Onset Dates Problem Status W/U Status Risk Notes Problem Occlusion and stenosis of multiple and bilateral cerebral arteries (627373521) Occlusion and stenosis of bilateral carotid arteries (I65.23) Active confirmed Problem Intermittent claudication of bilateral lower limbs co-occurrent and due to atherosclerosis (7981117557459416 8) Atherosclerosis of [place] arteries of extremities with intermittent claudication, bilateral legs (I70.213) Active confirmed Problem Tubulointerstitia l nephritis (disorder) (555262922) Renal tubulo-intersti tial disease, unspecified (N15.9) Active confirmed Problem History of peripheral vascular angioplasty (1047945391478927 0) Peripheral vascular angioplasty status with implants and grafts (Z95.820) Active confirmed Problem Right testicular pain (2926417377841186 7) Right testicular pain (N50.811) Active confirmed Problem Chronic kidney disease stage 3A (disorder) (434391636) Chronic kidney disease, stage 3a (N18.31) Active confirmed Problem Chronic kidney disease stage 3 (disorder) (571790091) Stage 3 chronic kidney disease, unspecified whether stage 3a or 3b CKD (N18.30) Active confirmed Problem Long-term current use of drug therapy (352944939) Antiplatelet or antithrombotic long-term use (Z79.02) Active confirmed Problem Chronic interstitial cystitis (145494344) Interstitial cystitis (N30.10) Active confirmed Problem Chronic kidney disease stage 3 (disorder) (499530019) CKD (chronic kidney disease), stage III (N18.3) Active confirmed Problem Stricture of artery (38023100) 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) Active confirmed Problem Hunner's ulcer (38253734) Hunner's ulcer (N30.10) Active confirmed Problem Hyperlipidemia (18902633) Hyperlipidemia (E78.5) Active confirmed Problem Stricture of artery (92160579) 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) Active confirmed Problem Hypertension (10308800) HTN (hypertension) (I10) Active confirmed Problem Former smoker (3208401) Former smoker (Z87.891) Active confirmed Problem Chronic prostatitis (06726051) Prostatitis, chronic (N41.1) Active confirmed Problem Vitamin D deficiency (47733702) Vitamin D deficiency (E55.9) Active confirmed Problem Benign prostatic hypertrophy with outflow obstruction (426524028) BPH loc w urin obs/LUTS (N40.1) Active confirmed Problem Atherosclerotic heart disease of [place] coronary artery without angina pectoris (821159400860465) Atherosclerotic heart disease of [place] coronary artery without angina pectoris (I25.10) Active confirmed [id number]-Mum ed Description:Kaur nary arteriosclerosis Problem Ischemic cardiomyopathy (315988700) Ischemic cardiomyopathy (I25.5) Active confirmed [id number]-Pkd m ed Description:Gene ralized ischemic myocardial dysfunction Problem Intermittent claudication of left lower limb co-occurrent and due to atherosclerosis (finding) (7379518630780718 0) Atherosclerosis of [place] arteries of extremities with intermittent claudication, left leg (I70.212) Active confirmed [id number]-Nlc m ed Description:Inte rmittent claudication due to atherosclerosis of [place] artery of limb Problem Chest pain (36538881) Other chest pain (R07.89) Active confirmed Mhs-0479296-Hu ed Description:Ches t discomfort Problem Bypass stent graft present (494542505318387) Presence of aortocoronary bypass graft (Z95.1) Active confirmed Ven-4453690-Kat ed Description:Hist ory of coronary artery bypass grafting Problem Essential hypertension (76744229) Essential primary hypertension (I10) Active confirmed [id number]-Rtr m ed Description:Esse ntial hypertension Vital Signs Heart Rate 61 /min 12/21/2024 Height-cm 170.18 cm 12/21/2024 Blood pressure diastolic 81 mm Hg 12/21/2024 Weight-kg 79.83 kg 12/21/2024 Height 67 in 12/21/2024 Blood pressure systolic 165 mm Hg 12/21/2024 Weight 176 lbs 12/21/2024 BMI 27.56 kg/m2 12/21/2024 Procedures Procedure Date Ordered Date Performed Result Body Sit e Bladder Scan 05/25/2024 05/25/2024 PVR 21ml Bladder Scan 12/21/2024 12/21/2024 N/A Encounters Encounter Location Date Provider Diagnosis [facility] [address] [facility] [address] [place] [address] 05/25/2024 SOLOMON ZAPIENKER BPH loc w urin obs/LUTS N40.1 ; Interstitial cystitis N30.10 ; Prostatitis, chronic N41.1 and Nocturia R35.1 [facility], [facility] [address] [place] [address] 12/21/2024 SOLOMON APONTE BPH loc w urin obs/LUTS N40.1 ; Interstitial cystitis N30.10 ; Prostatitis, chronic N41.1 and Nocturia R35.1 Assessments Encounter Date Diagnosis (ICD Code) Assessment Notes Treatment Notes Treatment Clinical Notes Section Notes 05/25/2024 BPH loc w urin obs/LUTS (ICD-10 - N40.1) Urgency, denies bothersome and will continue surveillance 12/21/2024 BPH loc w urin obs/LUTS (ICD-10 - N40.1) He is currently doing well but is starting to see some return of interstitial cystitis symptoms. We discussed possible repeat hydrodistention on a yearly basis but we will attempt to extend this out. Return sooner with hematuria, dysuria, or worsening bladder pain. Otherwise follow-up in 6 months. 12/21/2024 Interstitial cystitis (ICD-10 - N30.10) He Underwent Cysto HD on 01/16/24. UA clear. PVR 372ml. Feels stable symptoms. Denies hematuria. Notes minimal dysuria. He will return in 6m with symptom reassessment. Return sooner with any concerns He is currently doing well but is starting to see some return of interstitial cystitis symptoms. We discussed possible repeat hydrodistention on a yearly basis but we will attempt to extend this out. Return sooner with hematuria, dysuria, or worsening bladder pain. Otherwise follow-up in 6 months. 05/25/2024 Interstitial cystitis (ICD-10 - N30.10) Underwent Cysto HD on 01/16/24. Doing well and stable post op. He will return in 6-8 months for symptom reassessment with UA/PVR. Return sooner with any concerns 05/25/2024 Prostatitis, chronic (ICD-10 - N41.1) 12/21/2024 Prostatitis, chronic (ICD-10 - N41.1) He is currently doing well but is starting to see some return of interstitial cystitis symptoms. We discussed possible repeat hydrodistention on a yearly basis but we will attempt to extend this out. Return sooner with hematuria, dysuria, or worsening bladder pain. Otherwise follow-up in 6 months. 12/21/2024 Nocturia (ICD-10 - R35.1) He is currently doing well but is starting to see some return of interstitial cystitis symptoms. We discussed possible repeat hydrodistention on a yearly basis but we will attempt to extend this out. Return sooner with hematuria, dysuria, or worsening bladder pain. Otherwise follow-up in 6 months. 05/25/2024 Nocturia (ICD-10 - R35.1) stable 05/25/2024 Other Zeina Chin Scribe, am scribing for, and in the presence of, Dr. Aponte. I, Dr. Solomon Aponte, personally performed the services prescribed in this documentation, as scribed by Zeina Valadez, in my presence, and it is both accurate and complete. 12/21/2024 Other Zeina Chin Scribe am scribing for, and in the presence of, Dr. Aponte. I, Dr. Solomon Aponte, personally performed the services prescribed in this documentation, as scribed by Zeina Valadez, in my presence, and it is both accurate and complete. He is currently doing well but is starting to see some return of interstitial cystitis symptoms. We discussed possible repeat hydrodistention on a yearly basis but we will attempt to extend this out. Return sooner with hematuria, dysuria, or worsening bladder pain. Otherwise follow-up in 6 months. Plan Of Treatment Pending Test Test Name Order Date UA Without Micro-Auto 18280 10/22/2022 Blood Urea Nitrogen (BUN) 19355 05/23/20 20 Creatinine (B) 38816 05/23/2020 Electrocardiogram 12 Lead Tracing-75769 12/16/2022 Electrocardiogram, 12 Lead Tracing-88857 01/12/2024 Basic Metabolic Panel 64208 08/16/2020 Ferritin 57627 08/16/2020 Hemoglobin 03334 08/16/2020 Iron Binding Capacity Total 98272 2020 Iron Level 00859 08/16/2020 Magnesium (B) 96358 08/16/2020 Phosphorus (B) 35184 08/16/2020 Uric Acid (B) 93410 08/16/2020 UA Reflex Micro, Reflex Cult 90469, 8101 5, 86878 08/16/2020 PTH Intact 65075 08/16/2020 Albumin Serum--83911 02/19/2021 Basic Metabolic Panel -- 96742 Iron Level -- 27356 02/19/2021 PTH Intact--89410 02/19/2021 Phosphorus Level -- 60705 02/19/2021 Iron Binding Capacity Total -- 89856 07/2021 Hemoglobin 87350 02/19/2021 Uric Acid -- 24374 02/19/2021 Magnesium Level -- 32294 02/19/2021 Ferritin -- 76884 02/19/2021 UA Reflex -- 79017 02/19/2021 Albumin Serum--85085 08/21/2021 Basic Metabolic Panel -- 17181 Iron Level -- 32118 08/21/2021 PTH Intact--52324 08/21/2021 Phosphorus Level -- 89919 08/21/2021 Iron Binding Capacity Total -- 69256 06/2022 Hemoglobin 68306 08/21/2021 Uric Acid -- 59634 08/21/2021 Magnesium Level -- 84920 08/21/2021 Ferritin -- 13486 08/21/2021 UA Reflex -- 68738 08/21/2021 Albumin 88389 10/10/2021 Basic Metabolic Panel 78593 10/10/2021 Hemoglobin 76694 10/10/2021 Iron Binding Capacity Total 36263 2021 Iron Level 75731 10/10/2021 Magnesium (B) 33309 10/10/2021 UA Reflex Micro, Reflex Cult 47633, 8101 5, 27299 10/10/2021 PTH Intact 86897 10/10/2021 % Iron Saturation (Fe & TIBC)-56239,8355 0 10/10/2021 Albumin 04169 04/01/2022 Basic Metabolic Panel 27930 04/01/2022 Hemoglobin 28670 04/01/2022 Magnesium (B) 08319 04/01/2022 Phosphorus (B) 89066 04/01/2022 Uric Acid (B) 05914 04/01/2022 Vitamin D Total (B) 18723 04/01/2022 UA Reflex Micro, Reflex Cult 79556, 8101 5, 60779 04/01/2022 PTH Intact 19948 04/01/2022 Future Test Test Name Order Date US Carotid Doppler Bilateral--00030 02/08 US Carotid Doppler Bilateral-02001 03/05 Basic Metabolic Panel -- 36815 PTH Intact--00637 03/28/2023 Phosphorus Level -- 45486 03/28/2023 Uric Acid -- 23686 03/28/2023 Magnesium Level -- 91036 03/28/2023 UA Reflex -- 85092 03/28/2023 Next Appt Details Provider Name:SOLOMON Doe, 06/21/2025 02:40:00 PM, [address] [place], [address], Insurance Providers Payer Name Payer Address Payer Phone Subscriber Number Group Number Insured Name Patient Relationship to Insured Coverage Start Date Coverage End Date [place] Medicare [address] DUSTY CHRIS SHAVER [id number] Chris Thompson Self - patient is the insured [place] Insurance [address] [address] DEEPAK MANUEL [id number] [phone] [id number] Rigo Thompsonddie Self - patient is the insured Medical [...] bypass graft X3 1998 bladder biopsy 08/2009 Angioplasty of coronary artery coronary artery stent placement 5 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
[2025-04-11] MEDS: ondansetron 2 mg/ML SDV 2 mL 4 MG IVP (01:18)
[2025-04-11] MEDS: heparin 5,000 unit/mL INJ 1 mL 4000 UNIT IVP (01:20)
[2025-04-11] MEDS: morphine 4 mg/mL SDV 1 mL IVP ×4 (01:29→15:43)
--- NOTE | 2025-04-11 01:29 | W.ED.CHESTPA ---
HPI - Chest Pain General: Chief Complaint: Chest Pain Stated Complaint: CHEST PAIN Time Seen by Provider: 04/11/25 01:04 History of Present Illness: Patient is an 79-year-old male who presents with acute onset chest pain. He reports waking up from sleep with pressure on his chest at approximately 2345 . The patient states he woke up with all this pressure on my chest. He denies any preceding symptoms and reports he went to bed feeling well. The chest pain is described as a real tight squeeze and is ongoing at the time of evaluation. EMS found, the patient in ventricular tachycardia with heart rate up to 260 bpm, during which he briefly lost consciousness. He has a significant cardiac history including coronary artery disease with previous stent placement and a triple coronary artery bypass graft in 1998. Related Data Home Medications ?Medication ?Instructions ?Recorded ?Confirmed cholecalciferol (vitamin D3) 25 1,000 unit PO QAM 07/16/21 11/04/24 mcg (1,000 unit) capsule magnesium 250 mg tablet 250 mg PO DAILY 07/16/21 11/04/24 mecobalamin (vitamin B12) 1,000 1,000 mcg sublingual QAM 07/16/21 11/04/24 mcg disintegrating tablet,sublingual fexofenadine 180 mg tablet 180 mg PO DAILY 10/29/22 11/04/24 (Ashly Allergy) melatonin 5 mg capsule mg PO 10/29/22 11/04/24 potassium citrate 99 mg capsule mg PO 10/29/22 11/04/24 ferrous sulfate 325 mg (65 mg 325 mg PO DAILY 04/29/24 11/04/24 iron) tablet (FeroSul) duloxetine 40 mg capsule,delayed 40 mg PO DAILY 11/04/24 11/04/24 release potassium chloride 10 mEq 10 meq PO BID 11/04/24 capsule,extended release Previous Rx's ?Medication ?Instructions ?Recorded fluticasone propionate 50 See Rx Instructions .Route 10/21/22 mcg/actuation nasal .COMPLEX #48 grams spray,suspension montelukast 10 mg tablet See Rx Instructions .Route 10/07/23 .COMPLEX #90 tabs losartan 50 mg tablet See Rx Instructions .Route 12/30/23 .COMPLEX #90 tabs trazodone 150 mg tablet See Rx Instructions .Route 01/12/24 .COMPLEX #90 tabs amlodipine 5 mg tablet See Rx Instructions .Route 03/05/24 .COMPLEX #180 tabs furosemide 20 mg tablet See Rx Instructions .Route 03/05/24 .COMPLEX #45 tabs clopidogrel 75 mg tablet See Rx Instructions .Route 04/01/24 .COMPLEX #90 tabs finasteride 5 mg tablet See Rx Instructions .Route 04/01/24 .COMPLEX #90 tabs rosuvastatin 10 mg tablet See Rx Instructions .Route 04/01/24 .COMPLEX #90 tabs lansoprazole 30 mg capsule,delayed See Rx Instructions .Route 05/05/24 release .COMPLEX #90 caps levothyroxine 50 mcg tablet 50 mcg PO DAILY #30 tabs 05/06/24 compressor, for nebulizer #1 ea 05/26/24 nebulizer accessories #1 ea 05/26/24 isosorbide mononitrate 30 mg See Rx Instructions .Route 09/23/24 tablet,extended release 24 hr .COMPLEX #180 tabs Allergies Allergy/AdvReac Type Severity Reaction Status Date / Time No Known Allergies Allergy Verified 04/11/25 01:17 PFS ED PFS: Medical History COVID-19 vaccine administered 2 doses plus booster Macrocytic anemia Chronic kidney disease (CKD) stage G3a/A1, moderately decreased glomerular filtration rate (GFR) between 45-59 mL/min/1.73 square meter and albuminuria creatinine ratio less than 30 mg/g Acute coronary syndrome ST elevation (STEMI) myocardial infarction Chest pain Ex-smoker COPD (chronic obstructive pulmonary disease) Glaucoma Erectile dysfunction Obstructive sleep apnea Osteoarthritis Depression Coronary artery disease involving autologous vein coronary bypass graft without angina pectoris Anxiety Hyperlipemia, mixed Gastro-esophageal reflux disease with esophagitis Hypertension Chronic ulcerating interstitial cystitis Raynaud's disease Chronic renal disease, stage 3, moderately decreased glomerular filtration rate (GFR) between 30-59 mL/min/1.73 square meter BPH w urinary obs/LUTS Memory loss Myocardial infarct, old Idiopathic progressive neuropathy Left carotid bruit Surgical History H/O vasectomy S/P cystoscopy S/P angioplasty S/P coronary artery bypass graft x 2 Family History Mother , At 76 CAD (coronary artery disease) Active rheumatic fever Father , at 50 CAD (coronary artery disease) Heart attack Sister , At age 57 CAD (coronary artery disease) Family/Other Hypertension Social History Smoking and tobacco/nicotine status: former use of tobacco/nicotine Quit status (tobacco/nicotine): has quit using Year quit tobacco: 1988 [id number] Second hand smoke exposure: No Alcohol intake: former Substance/Drug Use: never Lives independently: Yes Household members: spouse Housing: House Marital status: service: No Current occupational status: retired Pets and animals: No Do you think of yourself as: Straight/Heterosexual Current gender identity: Male Special evelyn needs: No Physical Exam Const: GENERAL APPEARANCE: cooperative and ill appearing ORIENTATION/CONSCIOUSNESS: Yes awake, Yes oriented to person, Yes oriented to place and Yes oriented to time HENMT: COMMON NORMALS: normocephalic, atraumatic and Normal external nose present HEAD & SCALP: normocephalic and atraumatic FACE & SINUS: face symmetric NOSE: Normal external nose present TEETH & GINGIVA: Yes dentures Eye: COMMON NORMALS: Equal, round and reactive pupils present and EOMs intact bilaterally PUPIL: Yes Equal, round and reactive pupils present Neck/C-Spine: GENERAL: Yes trachea midline Chest: CHEST: Yes Symmetrical chest wall rise Resp: COMMON NORMALS: clear to auscultation bilaterally EFFORT & INSPECTION: Yes tachypneic and No uses accessory muscles AUSCULTATION: clear to auscultation bilaterally Cardio: COMMON NORMALS: regular rhythm RATE: bradycardic RHYTHM: regular rhythm GI: COMMON NORMALS: Normal to inspection, nondistended, normoactive bowel sounds present and Soft to palpation PALPATION: Yes Soft to palpation Extremity: COMMON NORMALS: no pedal edema Neuro: SENSORIUM/ORIENTATION: Yes oriented to person, Yes oriented to place and Yes oriented to time Course Vital Signs: Vital signs: Vital Signs Temperature 97.6 F 04/11/25 01:02 Pulse Rate 126 H 04/11/25 01:40 Respiratory Rate 22 H 04/11/25 01:31 Blood Pressure 78/52 04/11/25 01:40 Pulse Oximetry 91 04/11/25 01:40 Oxygen Delivery Me thod Room Air 04/11/25 01:33 MDM - Chest Pain Medical Decision Making EKG performed on arrival. It shows an ectopic atrial rhythm, with a rate of 135, and a large left bundle branch block. ST segments are significantly abnormal indicating myocardial injury. Spoke with cardiology. He requests activation of the Entry Level Assistant Manager team, which had been done just prior to consulting with him. Patient now rates his pain at a 3 or 4 out of 10. Nitroglycerin is not started, as his blood pressure is currently 91/67, his heart rate is 128, saturation is 95% on room air. He is awake, alert, and talking. His is in the room and was counseled. He is given Plavix 600 mg, as at the time it was unknown if he continues to take his Plavix, heparin 4000, morphine and Zofran. Amiodarone was given, 150 mg, and route for the ventricular tachycardia with rate of 260. We will continue amiodarone infusion. He got 2 nitroglycerin and 324 of aspirin in the ambulance and route as well. Patient is being prepared for Entry Level Assistant Manager. Chest x-ray shows no acute findings. Cardiology is at the bedside evaluating the patient. Patient taken to Entry Level Assistant Manager. He remained hypotensive, with blood pressures in the 80s over 60s. Cardiology requested Levophed to be started which was started prior to the patient's transfer to the Entry Level Assistant Manager. He remained awake. He has high risk for procedure, as he tells us only one of his 3 grafts from 99 are open. He had been told before by cardiology at an outside facility that there was nothing more could be done . Patient and requested angiogram and full CODE STATUS despite this. They consented to the procedure. Lab Data 04/11/25 01:10 04/11/25 01:10 Radiology Impressions Chest X-Ray 04/11/25 01:10 IMPRESSION: No definite acute infiltrate or effusion. Laboratory Results WBC 6.41 10^3/uL (3.29-11.43) 04/11/25 01:10 RBC 3.24 10^6/uL (3.85-5.65) L 04/11/25 01:10 Hgb 10.80 g/dL (11.27-16.99) L 04/11/25 01:10 Hct 31.8 % (37-53) L 04/11/25 01:10 MCV 98.1 fl (82-101) 04/11/25 01:10 MCH 33.3 pg (27-33) H 04/11/25 01:10 MCHC 34.0 g/dL (30-55) 04/11/25 01:10 RDW 12.3 % (12.1-15.1) 04/11/25 01:10 Plt Count 184 10^3/cmm (157-399) 04/11/25 01:10 MPV 10.1 fL (7.4-10.4) 04/11/25 01:10 Neut % (Auto) 41.1 % 04/11/25 01:10 Lymph % (Auto) 42.9 % 04/11/25 01:10 [place] % (Auto) 13.3 % 04/11/25 01:10 Eos % (Auto) 2.2 % 04/11/25 01:10 Baso % (Auto) 0.3 % 04/11/25 01:10 Neut # (Auto) 2.64 10^3/uL (1.8-7.7) 04/11/25 01:10 Lymph # (Auto) 2.8 10^3/uL (0.8-4.8) 04/11/25 01:10 [place] # (Auto) 0.9 10^3/uL (0.2-0.9) 04/11/25 01:10 Eos # (Auto) 0.1 10^3/uL (0.0-0.8) 04/11/25 01:10 Baso # (Auto) 0.0 10^3/uL (0.0-0.1) 04/11/25 01:10 Nucleated RBC % (auto) 0 % 04/11/25 01:10 Nucleated RBCs # 0.0 /100WBC 04/11/25 01:10 PT 12.40 SECONDS (12.1-14.9) 04/11/25 01:10 INR 0.86 (0.8-1.2) 04/11/25 01:10 APTT 23.8 SECONDS (23.9-36.7) L 04/11/25 01:10 Sodium 138 mmol/L (136-145) 04/11/25 01:10 Potassium 4.0 mmol/L (3.5-5.1) 04/11/25 01:10 Chloride 100 mmol/L (98-107) 04/11/25 01:10 Carbon Dioxide 25 mmol/L (22-29) 04/11/25 01:10 Anion Gap 17.0 (5-19) 04/11/25 01:10 BUN 16 mg/dL (8-23) 04/11/25 01:10 Creatinine 1.5 mg/dL (0.7-1.2) H 04/11/25 01:10 GFR Calculation Not Reportable 04/11/25 01:10 Glucose 143 mg/dL (65-115) H 04/11/25 01:10 Calculated Osmolality 290 mOsm/kg (285-295) 04/11/25 01:10 Calcium 9.0 mg/dL (8.5-10.5) 04/11/25 01:10 Total Bilirubin 0.2 mg/dL (0.15-1.2) 04/11/25 01:10 AST 15 U/L (0-40) 04/11/25 01:10 ALT 11 U/L (0-41) 04/11/25 01:10 Alkaline Phosphatase 57 U/L (40-130) 04/11/25 01:10 Creatine Kinase 93 U/L (39-308) 04/11/25 01:10 Troponin T Baseline 30 ng/L (0-15) H 04/11/25 01:10 NT-Pro-B Natriuret Pep 883 pg/mL (0-450) H 04/11/25 01:10 Total Protein 6.4 g/dL (6.6-8.7) L 04/11/25 01:10 Albumin 4.2 g/dL (3.5-5.2) 04/11/25 01:10 Globulin 2.2 g/dL (1.3-4.6) 04/11/25 01:10 All radiology interpretation(s) finalized by discharge Critical Care Time Critical Care Time: Critical Care Time: Yes Total Critical Care Time: 40 Attestation: This case had a high probability of a clinically significant, sudden, or life threatening deterioration of this patient's condition which required my full and direct attention, intervention and personal management. Time is independent of any procedures performed. Discharge Plan Discharge Patient Disposition: Admitted As Inpatient Admit Provider: Lopez,Elkins Clinical Impression: Chest pain, ST elevation myocardial infarction (STEMI) Condition: Critical Coding Level of Care Code ED Network Cabler for Judson Da Silva
[2025-04-11 01:36] LABS: Hematocrit 31.8 % (37-53); Hemoglobin 10.80 g/dL (11.27-16.99); Mean Corpuscular HGB Conc 34.0 g/dL (30-55); Mean Corpuscular Hemoglobin 33.3 pg (27-33); Mean Corpuscular Volume 98.1 fl (82-101); Nucleated Red Blood Cells % 0 %; Platelet Count 184 10^3/cmm (157-399); Red Blood Count 3.24 10^6/uL (3.85-5.65); White Blood Count 6.41 10^3/uL (3.29-11.43)
--- NOTE | 2025-04-11 01:38 | XACV_ITS ---
Exam Room: 2 Ht: 175 cm Wt: 79 kg BSA: 1.98 m2 Gender: Male : 1945 Any Known Allergies: No known allergies Exam Priority: Routine Procedure(s): Procedure Description: Diagnostic procedure Procedure Description: Left Heart Catheterization Procedure Description: Left ventriculography Procedure Description: RM Graft Catheterization Procedure Description: Coronary Angiography John DAWSON; Diagnostic Cath Status: Elective Diagnostic Findings * Left Main: mild 40% stenosis, MARIBEL: 3 flow. * Mid Left Anterior Descending: total occlusion, MARIBEL: 0 flow. * Left Internal Mammary Artery to Mid Left Anterior Descending graft: patent. * Proximal Right Coronary Artery to Distal Right Coronary Artery: total occlusion, MARIBEL: 0 flow. * Proximal Circumflex to Distal Circumflex: total occlusion, MARIBEL: 0 flow. * Ascending Aorta to Right Posterior AV graft: total occlusion, MARIBEL: 0 flow. * Two grafts visualized. * Coronary angiography shows right dominance. Conclusions 1. There is total occlusion coronary artery disease with four vessel disease. 2. Two coronary grafts visualized: one graft patent, and one graft occluded. 3. Patient has prior CABG. 4. Moderate left ventricular systolic dysfunction. Ejection fraction of 30%. Recommendations * 1-Return to inpatient for close monitoring and routine cath care 2-Risk factor modification for secondary prevention 3-Statin and aspirin 81 mg life-long, if tolerated 4-Continue Plavix 75mg p.o. daily for at least one year. We will assess at the end of one year again to continue if further or not 5-Optimal medical management, Control Atrial fib 6-Follow up with Dr. Lopez in four weeks and your primary care in 10 days. Diagnostic RX Recommendation: medical therapy and/or counseling LV EDP: 14 mmHg Ventriculography Ejection Fraction: 30.0 % Pressures Phase:Rest AO : 131 / 66 ( 90 ) @ 9:39:01 PM 96 / 68 ( 77 ) @ 9:39:01 PM 92 / 71 ( 79 ) @ 9:39:01 PM 115 / 69 ( 87 ) @ 9:39:01 PM 109 / 57 ( 75 ) @ 9:39:01 PM 110 / 58 ( 76 ) @ 9:39:01 PM LV : 113 / 2 / 14 @ 9:39:01 PM 115 / 2 / 17 @ 9:39:01 PM 113 / 4 / 18 @ 9:39:01 PM 107 / 5 / 18 @ 9:39:01 PM Valves Phase:DefaultPhase AV : 0.0 @ 2:39:01 AM AV Mean Gradient: 0.0 @ 2:39:01 AM Clinical Evaluation EBL: 5mL-10mL Procedural Details Pre-Procedure Time Out. Identified patient by full name and date of as verbalized by the patient/guarantor. Does the consent match the physician's order: N/A Emergent. Accurate & Complete Informed Consent: N/A Emergent. Inpatient/Outpatient History & Physical on Chart: N/A Emergent. If H&P is completed, is and addenduem needed: N/A Emergent; If yes, is the addendum complete: N/A Emergent. Visualize and Verify Site with Patient/Guarantor: N/A. Relevant Radiology Images available: N/A. Pre-op teaching completed and patient verbalized understanding. The risks, benefits, and alternatives of sedation and/or procedure were discussed by physician. The patient agrees to continue. Procedure started. [facility] Clinical Fraility Score: 5: Mildly Frail. Back Shoe Worker Indications: ACS > 24 hours. Chest Pain Symptom Assessment: Typical Angina Symptoms. Correct patient, site and procedure confirmed by cath team. Current diagnosis: STEMI. PERRLA. Strong, equal hand reporting process consultant bilaterally. Lungs clear x 5 lobes. IV Site on Arrival: 18 gauge in the left hand. IV Site on Arrival: 20 gauge in the left anticubital. IV Fluids: 0.9% NaCl at KVO. 0 mL infused prior to geoscience laboratory technician. Pre Procedural Pulses: bilateral posterior tibial was 2+. Pre Procedural Pulses: bilateral dorsalis pedis was 2+. Oxygen started at 2liters/min via nasal canula. bilateral groins was prepped with chloroprep then draped in the usual sterile fashion. Baseline sample Acquired. HR: 126 BPM. Physician notified. Patient arrived to lab with levophed gtt at 4mcg/min and amiodarone gtt 1mg/min. Physician arrived. Admit Source: Emergency department. Physician scrubbed in. Immediate Pre-Procedure Time Out. Correct Patient: Yes; Correct Procedure: Yes; Correct Site: Yes; Correct Patient Position: Yes; Correct Supplies: Yes; Dried Flammable Prep: Yes; Blood Products Available: No;. Lidocaine 1% infiltrated to the right groin. Arterial access obtained with micropuncture set. A 5 lao JL4 catheter in over wire. Multiple views taken of left coronary artery. Catheter removed over the exchange wire. A 5 lao JR4 catheter in over wire. View taken of RCA. Catheter redirected to RM. Exchange wire in through catheter to reposition catheter. Exchange wire out. [place] wire in through catheter. Catheter repositioned. Wire out. RM to LAD visualized. Pressure sample obtained in sublclavian. Catheter pulled into aorta for sample of gradient. Catheter removed over the exchange wire. A 5 lao Angled Pig catheter in over wire. EDP Sample taken: LV 113/2,14; HR: 125 BPM; SpO2: 96%. EDP Sample taken: LV 115/2,17; HR: 124 BPM; SpO2: 95%. LV gram performed in BENOIT @ 10 mL/second for a total of 30 mL. EDP Sample taken: LV 113/4,18; HR: 124 BPM; SpO2: 95%. Pullback taken: LV 107/5,18; AO 109/57(75); Mean: 0mmHg, Peak to Peak: 0mmHg, SEP: 14sec/min; HR: 124 BPM; SpO2: 95%. Catheter removed over the exchange wire. A Right femoral angiogram was performed to determine safe placement of closure device. A Suture was successful obtaining hemostatsis at the Right Femoral artery insertion site. Sheath(s) sutured into position with 2-0 silk and sterile 4x4's and Op-site applied over the site. No oozing or signs and symptoms of hematoma noted. Arterial sheath flushed and connected to tranducer and pressure bag with heparinized saline. Post Procedure: Pulses reassessed and unchanged. PERRLA. Strong, equal hand reporting process consultant bilaterally. No VTE prophylaxis required. Medication's Wasted: Lidocaine 1% = 10 mL. Medication's Wasted: Other = Fentanyl 75mcg, Versed 1 mg. Medication's Wasted: Heparin = 4000 units. Total IV fluids: 50 mL. Post-op diagnosis: STEMI. Complications: None. Estimated blood loss: 5mL-10mL. Responsiveness - Normal response to verbal stimuli; alert and oriented, PERRLA. Airway - Unaffected, no intervention required; spontaneous ventilation. Circulation: W/N/L, pulses unchanged. Nausea/Vomiting: No. Procedure completed. Patient transferred by bed to ICU. Vital chart was stopped. Access Site Site: Right Femoral artery Sheath Size: 6 Fr Hemostasis Method: Suture Hemostasis Success: Successful Procedure Medications Start: 1:58 AM Stop: 1:58 AM Medication: Versed Amount: 1 mg Route: I.V. Start: 2:04 AM Stop: 2:04 AM Medication: Fentanyl Amount: 25 mcg Route: I.V. I, the attending physician, have reviewed and verified all procedure medications. Yes, all medications given per verbal order Prior Interventions PCI: No CABG: Yes Report Signatures Finalized by Brittni Lopez MD on 04/11/2025 03:55 PM
[2025-04-11] MEDS: norepinephrine 4 MG/250 ML BAG 7.5 MG IV ×3 (01:45→18:26)
[2025-04-11 01:50] LABS: INR 0.86 (0.8-1.2); Partial Thromboplastin Time 23.8 SECONDS (23.9-36.7); Prothrombin Time 12.40 SECONDS (12.1-14.9)
--- NOTE | 2025-04-11 01:53 | PM.CONSULT ---
Providers/Reason For Consult Consulting Physician/Specialty*: Brittni Lopez MD/interventional Reason for Consult*: Ventricular tachycardia Atrial tachycardia ST elevation [place] Chest pain Requesting Physician: Alexandru Oliver Attending Physician: Brittni Lopez MD Primary Care Provider: Rom Crook MD History of Present Illness History of Present Illness Chris Thompson is a 79 year old male past medical history significant for hypertension hyperlipidemia coronary artery bypass surgery in 1989 with three-vessel graft to known to be occluded RM patent and multiple stent after that last time patient was told that they cannot fix anything however today he woke up with crushing chest pain since this evening. Pain happend off and on basis many times before he decided to call 911, he was noted to be in wide-complex tachycardia at 1 time heart rate was 220 I did not get any report that he was unconscious or passed out however he was given IV amiodarone which slowed him down to 130s. Twelve-lead EKG was suggestive of left bundle branch block with ST elevation in the inferolateral leads with ST depression in 1 and aVL when compared to prior EKG these changes are new however left bundle branch block was present before. Patient is in chest pain 7 out of 10. He is hypotensive systolic blood pressure around 70-80. Patient was given IV fluid 1 L and started on Levophed. Patient and his at bedside would like to be full code and would like to get everything done. Medications/Allergies Home Medications ?Medication ?Instructions ?Recorded ?Confirmed ?Last Taken ?Type cholecalciferol (vitamin D3) 25 1,000 unit PO QAM 07/16/21 11/04/24 07/23/22 06:30 History mcg (1,000 unit) capsule magnesium 250 mg tablet 250 mg PO DAILY 07/16/21 11/04/24 07/23/22 06:30 History mecobalamin (vitamin B12) 1,000 1,000 mcg sublingual QAM 07/16/21 11/04/24 07/23/22 06:30 History mcg disintegrating tablet,sublingual fluticasone propionate 50 See Rx Instructions .Route 10/21/22 11/04/24 Unknown Rx mcg/actuation nasal .COMPLEX #48 grams spray,suspension fexofenadine 180 mg tablet 180 mg PO DAILY 10/29/22 11/04/24 Unknown History (Ashly Allergy) melatonin 5 mg capsule mg PO 10/29/22 11/04/24 Unknown History potassium citrate 99 mg capsule mg PO 10/29/22 11/04/24 Unknown History montelukast 10 mg tablet See Rx Instructions .Route 10/07/23 11/04/24 Unknown Rx .COMPLEX #90 tabs losartan 50 mg tablet See Rx Instructions .Route 12/30/23 11/04/24 Unknown Rx .COMPLEX #90 tabs trazodone 150 mg tablet See Rx Instructions .Route 01/12/24 11/04/24 Unknown Rx .COMPLEX #90 tabs amlodipine 5 mg tablet See Rx Instructions .Route 03/05/24 11/04/24 Unknown Rx .COMPLEX #180 tabs furosemide 20 mg tablet See Rx Instructions .Route 03/05/24 11/04/24 Unknown Rx .COMPLEX #45 tabs clopidogrel 75 mg tablet See Rx Instructions .Route 04/01/24 11/04/24 Unknown Rx .COMPLEX #90 tabs finasteride 5 mg tablet See Rx Instructions .Route 04/01/24 11/04/24 Unknown Rx .COMPLEX #90 tabs rosuvastatin 10 mg tablet See Rx Instructions .Route 04/01/24 11/04/24 Unknown Rx .COMPLEX #90 tabs ferrous sulfate 325 mg (65 mg 325 mg PO DAILY 04/29/24 11/04/24 Unknown History iron) tablet (FeroSul) lansoprazole 30 mg capsule,delayed See Rx Instructions .Route 05/05/24 11/04/24 Unknown Rx release .COMPLEX #90 caps levothyroxine 50 mcg tablet 50 mcg PO DAILY #30 tabs 05/06/24 05/26/24 Unknown Rx compressor, for nebulizer #1 ea 05/26/24 05/26/24 Unknown Rx nebulizer accessories #1 ea 05/26/24 05/26/24 Unknown Rx isosorbide mononitrate 30 mg See Rx Instructions .Route 09/23/24 11/04/24 Unknown Rx tablet,extended release 24 hr .COMPLEX #180 tabs duloxetine 40 mg capsule,delayed 40 mg PO DAILY 11/04/24 11/04/24 Unknown History release potassium chloride 10 mEq 10 meq PO BID 11/04/24 Unknown History capsule,extended release Allergies Allergy/AdvReac Type Severity Reaction Status Date / Time No Known Allergies Allergy Verified 04/11/25 01:17 Current Medications Generic Name Dose Route Start Last Admin Trade Name Freq PRN Reason Stop Dose Admin Amiodarone HCl/Dextrose 360 mg in 200 mls @ 0 mls/hr 04/11/25 01:15 04/11/25 01:20 Nexterone IV 1 mg/min .Q0M ROSEMARY 33.33 mls/hr Protocol Administration Per Protocol Sodium Chloride 1,000 mls @ 999 mls/hr 04/11/25 01:17 04/11/25 01:22 Sodium Chloride 0.9% IV 04/11/25 02:17 999 mls/hr .Q1H1M ONE Administration Norepinephrine Bitartrate 4 mg in 250 mls @ 0 mls/hr 04/11/25 01:45 04/11/25 01:51 Levophed IV 2 mcg/min .Q0M ROSEMARY 7.5 mls/hr Protocol Administration Per Protocol Morphine Sulfate 4 mg 04/11/25 01:10 04/11/25 01:31 Morphine 4 Mg/Ml Sdv 1 Ml IVP 4 mg Q5M PRN Administration CHEST PAIN PFSH Acute PFSH: Medical History (Updated 04/11/25 @ 01:58 by Brittni Lopez MD) COVID-19 vaccine administered 2 doses plus booster Macrocytic anemia Chronic kidney disease (CKD) stage G3a/A1, moderately decreased glomerular filtration rate (GFR) between 45-59 mL/min/1.73 square meter and albuminuria creatinine ratio less than 30 mg/g Acute coronary syndrome ST elevation (STEMI) myocardial infarction Chest pain Ex-smoker COPD (chronic obstructive pulmonary disease) Glaucoma Erectile dysfunction Obstructive sleep apnea Osteoarthritis Depression Coronary artery disease involving autologous vein coronary bypass graft without angina pectoris Anxiety Hyperlipemia, mixed Gastro-esophageal reflux disease with esophagitis Hypertension Chronic ulcerating interstitial cystitis Raynaud's disease Chronic renal disease, stage 3, moderately decreased glomerular filtration rate (GFR) between 30-59 mL/min/1.73 square meter BPH w urinary obs/LUTS Memory loss Myocardial infarct, old Idiopathic progressive neuropathy Left carotid bruit Surgical History H/O vasectomy S/P cystoscopy S/P angioplasty S/P coronary artery bypass graft x 2 Family History Mother , At 76 CAD (coronary artery disease) Active rheumatic fever Father , at 50 CAD (coronary artery disease) Heart attack Sister , At age 57 CAD (coronary artery disease) Family/Other Hypertension Social History Smoking and tobacco/nicotine status: former use of tobacco/nicotine Quit status (tobacco/nicotine): has quit using Year quit tobacco: 1988 [id number] Second hand smoke exposure: No Alcohol intake: former Substance/Drug Use: never Lives independently: Yes Household members: spouse Housing: House Marital status: service: No Current occupational status: retired Pets and animals: No Do you think of yourself as: Straight/Heterosexual Current gender identity: Male Special evelyn needs: No Vitals/I&O/Wt Last Vital Signs Temp 97.6 F 04/11/25 01:02 Pulse 119 H 04/11/25 01:02 Resp 22 H 04/11/25 01:31 BP 87/62 04/11/25 01:02 Pulse Ox 93 04/11/25 01:31 O2 Del Method Room Air 04/11/25 01:02 04/10/25 04/10/25 04/11/25 14:59 22:59 06:59 Intake Total 0.75 / 0.75 Balance 0.75 / 0.75 Weight last 48 hrs Weight 175 lb 14.4 oz Physical Exam Const: OTHER: GENERAL: Patient is alert, awake and oriented x3, he is in mild to moderate distress HEART: Regular S1 and S2. No murmur, rub or gallop. LUNGS: Clear to auscultate bilaterally. CENTRAL NERVOUS SYSTEM: Grossly nonfocal. EXTREMITIES: Lower extremities with out edema bilaterally. Data 04/11/25 01:10 04/11/25 01:10 A&P Assessment and plan 1. ST elevation myocardial infarction (STEMI): 2. Chest pain: 3. Wide-complex tachycardia: 4. Shock: Plan: We will proceed with emergent left heart cath. Patient is high risk for mortality given his advanced age and underlying extensive coronary artery disease hypotensive. All risk-benefit and alternative for the procedure has been discussed with the patient and the family they would like to proceed with it. PDMP PDMP Reviewed: Not Reviewed Coding Level of Care Code Acute Code for Chg Fwd Diagnoses ST elevation myocardial infarction (STEMI) I21.3 Chest pain R07.9 Wide-complex tachycardia R00.0 Shock R57.9
[2025-04-11 01:58] LABS: Troponin(5th) Baseline 30 ng/L (0-15)
[2025-04-11 02:05] LABS: Alanine Aminotransferase 11 U/L (0-41); Albumin Level 4.2 g/dL (3.5-5.2); Alkaline Phosphatase 57 U/L (40-130); Anion Gap 17.0 (5-19); Aspartate Amino Transferase 15 U/L (0-40); Blood Urea Nitrogen 16 mg/dL (8-23); Calcium 9.0 mg/dL (8.5-10.5); Carbon Dioxide 25 mmol/L (22-29); Chloride 100 mmol/L (98-107); Globulin 2.2 g/dL (1.3-4.6); Glucose 143 mg/dL (65-115); NT Pro B Type Natriuretic Pept 883 pg/mL (0-450); Osmolality Calculated 290 mOsm/kg (285-295); Potassium 4.0 mmol/L (3.5-5.1); Sodium 138 mmol/L (136-145); Total Protein 6.4 g/dL (6.6-8.7)
[2025-04-11 02:13] LABS: Creatinine Clr Calc Pharmacy 41.2971
--- NOTE | 2025-04-11 02:43 | P.PCN_ITS ---
Procedure Note: Date of procedure: 04/11/25 Pre-procedure diagnosis: Wide- complex tachycardia, acute coronary syndrome, ST elevation [place] Procedure: Left heart cath was performed Left main has distal 50% stenosis LAD is known to be chronically occluded in the midsegment Diagonal is a large-caliber in size vessel without significant stenosis LCx appeared to be nondominant and chronically occluded RCA is chronically occluded SVG to RCA is known to be occluded SVG to circumflex is known to be occluded RM to LAD is patent distal LAD has diffuse disease not amenable to intervention Patient has severely depressed left ventricle ejection fraction 30%, there is a nterior wall apical and inferior wall severe hypokinesis Left ventricle end-diastolic pressure if they are within normal limit and 14 mmHg In the past patient has deemed not suitable for intervention as per family Plan: Right common femoral sheath was left in Once PTT less than 45 right common femoral sheath can be DC'd. Continue IV fluid 100 mL/h Continue IV amiodarone Continue Levophed and titrate off to keep MAP above 65 We will reassess tomorrow afternoon if patient does not slow down consider FRANCIS guided cardioversion Coding Level of Care Code Acute Code for Chg Fwd
--- NOTE | 2025-04-11 02:50 | PC.NURSE ---
Addendum entered by Brandy Dodson RN 04/11/25 07:27: Dr. Lopez also stated that patient will most likely undergo cardioversion today, time unknown. Original Note: Physician Communication Patient arrived to unit with right sheath in place. All vital signs stable; patient remaining on 2LNC. Dr. Lopez at bedside; orders received to pull sheath when ptt <45 and contact him for increasing tachycardia. All other inquiries to be made to hospitalist.
--- NOTE | 2025-04-11 03:10 | ECG_ITS ---
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 Measurements Intervals [place] Rate: 127 P: -51 MI: 184 QRS: 69 QRSD: 199 T: -83 QT: 361 QTc: 525 Interpretive Statements WIDE COMPLEX TACHYCARDIA, POSSIBLE VENTRICULAR TACHYCARDIA VERSUS SUPRAVENTRICULAR TACHYCARDIA WITH LEFT BUNDLE BRANCH BLOCK ST ELEVATION, CONSIDER INFERIOR INJURY [MARKED ST ELEVATION W/O NORMALLY INFLECTED T-WAVE IN II/aVF] ACUTE UT Compared to ECG 04/11/2025 01:02:06 ST ELEVATION IN THE ANTERIOR LEADS HAS DECREASED Electronically Signed On 04-11-2025 13:47:51 CDT by Rafael Jose M.D. [email or web address]
--- NOTE | 2025-04-11 04:05 | PC.NURSE ---
Morphine Dr. Lopez contacted for clarification of morphine order. Vital signs, urine output, and levophed requirements discussed. Orders received to change 4 mg morphine frequency from Q5min to Q2H and insert chong catheter.
--- NOTE | 2025-04-11 05:00 | P.CONIM_ITS ---
Providers/Reason For Consult 2 Consulting Physician/Specialty*: AALIYAH BAE DO-Hospitalist Reason for Consult*: Medical management for ST elevation NJ inferior lateral with left bundle branch block ST depression lead I and aVL. Hypotension Requesting Physician: CLAIR LOREDO MD-CARDIOLOGY Attending Physician: Brittni Lopez MD Primary Care Provider: Rom Crook MD History of Present Illness History of Present Illness Chris Thompson is a 79 year old male with medical history significant for atrial fibrillation, CABG x 2 vessel disease in 1998 with 1 graft completely occluded. Patient presented to the emergency room because of chest pain with V. tach EMS in the field gave a 150 mg of amiodarone with a heart rate of 220. At the emergency room the heart rate was down to 130s. EKG triggered STEMI alert in the emergency room and Dr. Oliver ED attending notified Dr. Lopez who came and took the patient to [facility] as the primary physician and team. ICU nurse called me to clarify if I know anything about this patient the hide just arrive to ICU 5 and I replied no. Did not see but then told me that Dr. LOPEZ had told the ED doctor Benito to consult me for medical management. Patient EF is 30%, he has chronic renal failure with GFR in the 20s. I have seen and evaluated patient post cardiac catheterization with cardiology and arrival to ICU. Patient had change his CODE STATUS from DNR to DNI and then finally did not want DNR did not want DNI but like nothing to be done at code situation. He does not want CPR nor intubation bed to allow natural . Patient currently is on amiodarone drip protocol and Levophed systolic blood pressure 107 diastolic 60 heart rate in the 120s to 140s. Cardiology aware of the heart rate and also patient persistent chest pain at this time. Care at the moment is morphine 2 mg every 2 hours for chest pain and for the heart rate cardiology, Dr. Lopez will like to do cardioversion This conversation was done with the patient the and the son and myself in the room and all understood. Review of Systems 2 Narrative: System review upon 10 organ reviewed were significant for cardiovascular with chest pain post cardiac catheterization that had not changed before cardiac catheterization according to the patient. Medications/Allergies Home Medications ?Medication ?Instructions ?Recorded ?Confirmed ?Last Taken ?Type cholecalciferol (vitamin D3) 25 1,000 unit PO QAM 12/0 6/21 03/27/25 12/13/22 06:30 History mcg (1,000 unit) capsule magnesium 250 mg tablet 250 mg PO DAILY 07/16/2107/23/22 06:30 History mecobalamin (vitamin B12) 1,000 1,000 mcg sublingual Q AM 07/16/21 11/04/24 07/23/22 06:30 History mcg disintegrating tablet,sublingual fluticasone propionate 50 See Rx Instructions .Route 0 10/21/22 11/04/24 Unknown Rx mcg/actuation nasal .COMPLEX #48 grams spray,suspension fexofenadine 180 mg tablet 180 mg PO DAILY 10/29/22 Unknown History (Ashly Allergy) melatonin 5 mg capsule mg PO 10/29/22 11/04/24 Unkn own History potassium citrate 99 mg capsule mg PO 10/29/22 5 Unknown History montelukast 10 mg tablet See Rx Instructions .Route 0 10/07/23 11/04/24 Unknown Rx .COMPLEX #90 tabs losartan 50 mg tablet See Rx Instructions .Route 0 12/30/23 11/04/24 Unknown Rx .COMPLEX #90 tabs trazodone 150 mg tablet See Rx Instructions .Route 0 01/12/24 11/04/24 Unknown Rx .COMPLEX #90 tabs amlodipine 5 mg tablet See Rx Instructions .Route 0 03/05/24 11/04/24 Unknown Rx .COMPLEX #180 tabs furosemide 20 mg tablet See Rx Instructions .Route 0 03/05/24 11/04/24 Unknown Rx .COMPLEX #45 tabs clopidogrel 75 mg tablet See Rx Instructions .Route 0 04/01/24 11/04/24 Unknown Rx .COMPLEX #90 tabs finasteride 5 mg tablet See Rx Instructions .Route 0 04/01/24 11/04/24 Unknown Rx .COMPLEX #90 tabs rosuvastatin 10 mg tablet See Rx Instructions .Route 0 04/01/24 11/04/24 Unknown Rx .COMPLEX #90 tabs ferrous sulfate 325 mg (65 mg 325 mg PO DAILY 04/29/24 11/04/24 Unknown History iron) tablet (FeroSul) lansoprazole 30 mg capsule,delayed See Rx Instructions .Route 05/05/24 11/04/24 Unknown Rx release .COMPLEX #90 caps levothyroxine 50 mcg tablet 50 mcg PO DAILY #30 tabs 0 05/06/24 05/26/24 Unknown Rx compressor, for nebulizer #1 ea 05/26/24 05/26/24 Unkn own Rx nebulizer accessories #1 ea 05/26/24 05/26/24 Unkn own Rx isosorbide mononitrate 30 mg See Rx Instructions .Rout e 09/23/24 11/04/24 Unknown Rx tablet,extended release 24 hr .COMPLEX #180 tabs duloxetine 40 mg capsule,delayed 40 mg PO DAILY 11/04/24 Unknown History release potassium chloride 10 mEq 10 meq PO BID 11/04/24 Unkn own History capsule,extended release Allergies Allergy/AdvReac Type Severity Reaction Status Date / Time No Known Allergies Allergy Verified 04/11/25 01:17 Current Medications Generic Name Dose Route Start Last Admin Trade Name Freq PRN Reason Stop Dose Admin Amiodarone HCl/Dextrose 360 mg in 200 mls @ 0 mls/hr 04/11/25 01:15 04/11/25 01:20 Nexterone IV 1 mg/min .Q0M ROSEMARY 33.33 mls/hr Protocol Administration Per Protocol Norepinephrine Bitartrate 4 mg in 250 mls @ 0 mls/hr 04/11/25 01:45 04/11/25 03:13 Levophed IV 4 mcg/min .Q0M ROSEMARY 15 mls/hr Protocol Titration Per Protocol Sodium Chloride 1,000 mls @ 100 mls/hr 04/11/25 02:45 04/11/25 03:41 Sodium Chloride 0.9% IV 100 mls/hr .Q10H ROSEMARY Administration Morphine Sulfate 4 mg 04/11/25 04:05 04/11/25 04:35 Morphine 4 Mg/Ml Sdv 1 Ml IVP 4 mg Q2H PRN Administration CHEST PAIN PFSH Acute 2 PFSH: Medical History COVID-19 vaccine administered 2 doses plus booster Macrocytic anemia Chronic kidney disease (CKD) stage G3a/A1, moderately decreased glomerular filtration rate (GFR) between 45-59 mL/min/1.73 square meter and albuminuria creatinine ratio less than 30 mg/g Acute coronary syndrome ST elevation (STEMI) myocardial infarction Chest pain Ex-smoker COPD (chronic obstructive pulmonary disease) Glaucoma Erectile dysfunction Obstructive sleep apnea Osteoarthritis Depression Coronary artery disease involving autologous vein coronary bypass graft without angina pectoris Anxiety Hyperlipemia, mixed Gastro-esophageal reflux disease with esophagitis Hypertension Chronic ulcerating interstitial cystitis Raynaud's disease Chronic renal disease, stage 3, moderately decreased glomerular filtration rate (GFR) between 30-59 mL/min/1.73 square meter BPH w urinary obs/LUTS Memory loss Myocardial infarct, old Idiopathic progressive neuropathy Left carotid bruit Surgical History H/O vasectomy S/P cystoscopy S/P angioplasty S/P coronary artery bypass graft x 2 Family History Mother , At 76 CAD (coronary artery disease) Active rheumatic fever Father , at 50 CAD (coronary artery disease) Heart attack Sister , At age 57 CAD (coronary artery disease) Family/Other Hypertension Social History Smoking and tobacco/nicotine status: former use of tobacco/nicotine Quit status (tobacco/nicotine): has quit using Year quit tobacco: 1988 [id number] Second hand smoke exposure: No Alcohol intake: former Substance/Drug Use: never Lives independently: Yes Household members: spouse Housing: House Marital status: service: No Current occupational status: retired Pets and animals: No Do you think of yourself as: Straight/Heterosexual Current gender identity: Male Special evelyn needs: No Vitals/I&O/Wt Last Vital Signs Temp 97.6 F 04/11/25 01:02 Pulse 126 H 04/11/25 01:40 Resp 13 04/11/25 04:35 BP 78/52 04/11/25 01:40 Pulse Ox 90 04/11/25 04:35 O2 Del Method Room Air 04/11/25 01:33 04/10/25 04/10/25 04/11/25 14:59 22:59 06:59 Intake Total 11.00 / 11.00 Balance 11.00 / 11.00 Weight last 48 hrs Weight 79.787 kg Physical Exam 2 Narrative: Patient looks to be in pain significant for chest pain at presentation and also postcardiac catheterization CODE STATUS was DNR I upon arriving to ICU now family and patient want CODE STATUS to be changed to AND. HEENT normocephalic/atraumatic neck neck is supple cardiovascular heart rate is regular lungs are pretty much clear abdomen soft nontender nondistended unremarkable extremities are intact no edema has good pulses neurology there is no focality lab studies lab studies reviewed and noted. Hemoglobin 10.80 creatinine 1.5 Data 04/11/25 01:10 04/11/25 05:39 A&P Assessment and plan 1. Shock: 2. Wide-complex tachycardia: 3. ST elevation myocardial infarction (STEMI): 4. Chest pain: 5. New onset left bundle branch block (LBBB): 6. Hypotension: Plan: #! Severe coronary artery disease with persistent chest pain post cath - Morphine for pain management per cardiology - Patient changed CODE STATUS from DNI to AND at any COD situation - Must continue to provide care for the patient - Education on CODE STATUS discussed extensively with the family for clear understanding - Continue all current medical care till any code situation #2 WIDE complex tachycardia - This is in the persistence - Runs 120s to 140s - Cardiology has the mind to cardiovert as a plan #3 New left bundle branch block prior to cath - Continue with antiischemia therapy - Defer to cardiology #4 Hypotension due to cardiovascular shock - Patient on Levophed and maintaining Continue to monitor #5 Chronic stage IV kidney - Creatinine 1.5 GFR in the 20s for this 79 years old patient - Continue to provide good blood pressure to preserve GFR and to improve renal function #6 GI and DVT prophylaxis in place PDMP PDMP Reviewed: Last Reviewed 04/11/25 05:46 by Aaliyah Bae MD Consult Attestations 2 Medical Necessity Statement: Patient with acute NJ with significant arrhythmia left bundle branch block and ICD location receiving amiodarone and Levophed because of cardio vascular shock meets the criteria of at least 2midnight for optimization of care Coding Level of Care Code 77557 Diagnoses Shock R57.9 Wide-complex tachycardia R00.0 ST elevation myocardial infarction (STEMI) I21.3 Chest pain R07.9 New onset left bundle branch block (LBBB) I44.7 Hypotension I95.9 Time Spent (min) 60
--- NOTE | 2025-04-11 05:00 | PC.NURSE ---
Code Status Dr. Bae at bedside; education regarding code status provided. Patient stated he would not want anything done if his heart stopped. Decision by patient and family to change patient's code status to AND.
--- NOTE | 2025-04-11 05:33 | PC.NURSE ---
Jorge Lopez contacted unit for patient update. Oxygen requirement increase to 4 LNC, HR, BP, as well as urine output discussed. Orders received to stop maintenance fluids and administer 40 mg lasix IVP once.
[2025-04-11] MEDS: FUROsemide 10 mg/mL SDV 4mL 40 MG IVP (05:41)
[2025-04-11 06:25] LABS: Alanine Aminotransferase 22 U/L (0-41); Albumin Level 3.8 g/dL (3.5-5.2); Alkaline Phosphatase 57 U/L (40-130); Anion Gap 17.5 (5-19); Aspartate Amino Transferase 36 U/L (0-40); Blood Urea Nitrogen 14 mg/dL (8-23); Calcium 8.2 mg/dL (8.5-10.5); Carbon Dioxide 21 mmol/L (22-29); Chloride 103 mmol/L (98-107); Creatinine Clr Calc Pharmacy 52.2361; Globulin 2.3 g/dL (1.3-4.6); Glucose 148 mg/dL (65-115); Magnesium 1.9 mg/dL (1.7-2.3); Osmolality Calculated 287 mOsm/kg (285-295); Potassium 4.5 mmol/L (3.5-5.1); Sodium 137 mmol/L (136-145); Total Protein 6.1 g/dL (6.6-8.7)
[2025-04-11 07:06] LABS: Partial Thromboplastin Time 25.9 SECONDS (23.9-36.7)
[2025-04-11 07:39] LABS: Hematocrit 33.5 % (37-53); Hemoglobin 11.40 g/dL (11.27-16.99); Mean Corpuscular HGB Conc 34.0 g/dL (30-55); Mean Corpuscular Hemoglobin 33.4 pg (27-33); Mean Corpuscular Volume 98.2 fl (82-101); Nucleated Red Blood Cells % 0 %; Platelet Count 181 10^3/cmm (157-399); Red Blood Count 3.41 10^6/uL (3.85-5.65); White Blood Count 10.15 10^3/uL (3.29-11.43)
--- NOTE | 2025-04-11 08:32 | ECG_ITS ---
[facility] Test Date: 2025-04-11 Pat Name: Chris Thompson Department: Room: [facility] Gender: Male Hand Bookbinder: : 1945 Requested By: Alexandru Hi Order Number: [id number] Juan MD: Rafael Jose M.D. Measurements Intervals [place] Rate: 136 P: -67 SD: 189 QRS: 52 QRSD: 224 T: -72 QT: 362 QTc: 545 Interpretive Statements WIDE COMPLEX TACHYCARDIA, POSSIBLE VENTRICULAR TACHYCARDIA VERSUS SUPRAVENTRICULAR TACHYCARDIA WITH LEFT BUNDLE BRANCH BLOCK ST ELEVATION IN THE INFERIOR LEADS, POSSIBLE ACUTE INJURY STEMI Compared to ECG 04/11/2025 04:02:34 NO SIGNIFICANT CHANGE Electronically Signed On 04-11-2025 13:45:18 CDT by Rafael Jose M.D. [email or web address]
--- NOTE | 2025-04-11 09:13 | PC.NURSE ---
Sheath removed at 0848. Pressure held and dry dressing applied to non bleeding site. Tolerated well. No hematoma noted.
--- NOTE | 2025-04-11 11:47 | PC.SOCIAL ---
*IMM* Completed, initialed, dated and timed in the chart. Copy received by patient.
[2025-04-11] MEDS: digoxin 250 mcg/ml INJ 2 mL IVP ×2 (14:00→15:41)
--- NOTE | 2025-04-11 14:34 | P.PN_ITS ---
Subjective 2 Subjective: Patient complains of chest pressure with heart rate is in 140s despite of being on amiodarone Systolic blood pressure has come up to 107 from 90s He has been given more than 2 L of fluid overnight Creatinine has improved Patient has mild distended abdomen but good bowel sounds Vitals/I&O/Wt Last Vital Signs Temp 97.6 F 04/11/25 05:30 Pulse 140 H 04/11/25 12:30 Resp 20 H 04/11/25 12:30 BP 113/75 04/11/25 11:30 Pulse Ox 97 04/11/25 12:30 O2 Del Method Nasal Cannula 04/11/25 05:37 O2 Flow Rate 4 04/11/25 05:37 04/10/25 04/11/25 04/11/25 22:59 06:59 14:59 Intake Total 199.333 / 199.333 780.854 / 780.854 Output Total 400 / 400 Balance -200.667 / -200.667 780.854 / 780.854 Weight last 48 hrs Weight 180 lb 12.465 oz Weight 175 lb 14.4 oz Physical Exam 2 Const: OTHER: GENERAL: Patient is alert, awake and oriented x3. No distress but complaining of chest pressure with heart rate into 140s HEART: Regular S1 and S2. No murmur, rub or gallop. LUNGS: Decreased breath sounds but no crepitus bilaterally. CENTRAL NERVOUS SYSTEM: Grossly nonfocal. EXTREMITIES: Lower extremities with out edema bilaterally. Urinary Catheter Management: Gandara: Cath Placed During This Visit: yes Reason for Continuing Indwelling Catheter: Accurate Measurement of Urinary Output in Critically Ill Patients Urinary Catheter Date of Insertion: 04/11/25 Urinary Catheter Time of Insertion: 05:00 Data 04/11/25 06:32 04/11/25 05:39 A&P Assessment and plan 1. Chest pain: 2. Wide-complex tachycardia: 3. Shock: 4. Abdominal distention: 5. ST elevation myocardial infarction (STEMI): Not a true STEMI possible EKG changes due to underlying extensive coronary artery disease and secondary to demand ischemia. Plan: Please note that in the ER at the time of transfer to the Switchboard And Control Room Operator I personally discussed with ER staff and requested given underlying comorbidities and complexity of the patient, patient should be on hospitalist service and we will be consulting. it is the reason I put my consult note. 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 He was noted to be hypotensive but coherent. I was told Enroute he was given amiodarone IV by the EMS. 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 Left main diagonal branch and RM to LAD was patent noted on last night procedure, in 2021 he had normal ejection fraction but LV gram was suggestive of EF less than 30%. It was thought his anatomy is not amenable to any intervention such as PCI or redo bypass surgery. My clinical impression was because of atrial flutter/tachycardia he has demand ischemia resulting in the chest pain. Initial troponin was 30. He had underlying carotid artery disease, CKD with creatinine was around 1.5. Overnight he was given IV fluid more than 2 L with good urine output, he was kept on Levophed around 4 mics whcih improved his blood pressure. He was managed on IV amiodarone but did not slow him down. This morning I added digoxin to his regimen with the plan to do proceed with FRANCIS guided cardioversion since patient ate already this morning anesthesia would like him to be n.p.o for 8 hours which will be 8 PM therefore we planned to proceed with it around 8 PM with FRANCIS guided cardioversion unless he becomes unstable and then can be converted by bedside. Patient and family requested transfer to [facility] where they would like to see EP cardiology. At the request we will be initiating the transfer. For abdominal distention will ask for x-ray abdomen and check a UTI to rule out any urosepsis or hypotension. Echocardiogram is pending. Plan once complete bedrest will initiate heparin as per protocol for A-fib Continue Levophed to keep MAP above 65 Reduce IV fluid to KVO I have called and spoken with [facility] transfer center who conveyed it to cardiology on-call to accept the transfer and most likely patient will be transferred once bed available PDMP PDMP Reviewed: Not Reviewed Attestations 2 Medical Necessity Statement*: Patient requested transfer to the [facility] Coding Level of Care Code Acute Code for Chg Fwd Diagnoses Chest pain R07.9 Wide-complex tachycardia R00.0 Shock R57.[address] elevation myocardial infarction (STEMI) I21.3
--- NOTE | 2025-04-11 15:32 | PM.TDS ---
Transfer Summary Providers Date of Admission: 04/11/25 02:59 Date of Discharge/Transfer: 04/11/25 Attending Provider at Admission: Brittni Lopez MD Attending Provider at Transfer: Brittni Lopez MD Primary Care Provider: Rom Crook MD Transfer Plans: Anticipated date of transfer: 04/11/25. Diagnoses at Discharge Discharge Diagnosis 1. Chest pain: 2. Wide-complex tachycardia: 3. Shock: 4. Abdominal distention: 5. ST elevation myocardial infarction (STEMI): Reason for Visit Reason for Visit CHEST PAIN Brief History: Assessment and plan 1. Chest pain: 2. Wide-complex tachycardia: 3. Shock: 4. Abdominal distention: 5. ST elevation myocardial infarction (STEMI): Not a true STEMI possible EKG changes due to underlying extensive coronary artery disease and secondary to demand ischemia. Plan: Please note that in the ER at the time of transfer to the Sales Correspondent I personally discussed with ER staff and requested given underlying comorbidities and complexity of the patient, patient should be on hospitalist service and we will be consulting. it is the reason I put my consult note. 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 He was noted to be hypotensive but coherent. I was told Enroute he was given amiodarone IV by the EMS. 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 Left main diagonal branch and RM to LAD was patent noted on last night procedure, in 2021 he had normal ejection fraction but LV gram was suggestive of EF less than 30%. It was thought his anatomy is not amenable to any intervention such as PCI or redo bypass surgery. My clinical impression was because of atrial flutter/tachycardia he has demand ischemia resulting in the chest pain. Initial troponin was 30. He had underlying carotid artery disease, CKD with creatinine was around 1.5. Overnight he was given IV fluid more than 2 L with good urine output, he was kept on Levophed around 4 mics whcih improved his blood pressure. He was managed on IV amiodarone but did not slow him down. This morning I added digoxin to his regimen with the plan to do proceed with FRANCIS guided cardioversion since patient ate already this morning anesthesia would like him to be n.p.o for 8 hours which will be 8 PM therefore we planned to proceed with it around 8 PM with FRANCIS guided cardioversion unless he becomes unstable and then can be converted by bedside. Patient and family requested transfer to [facility] where they would like to see EP cardiology. At the request we will be initiating the transfer. For abdominal distention will ask for x-ray abdomen and check a UTI to rule out any urosepsis or hypotension. Echocardiogram is pending. Plan once complete bedrest will initiate heparin as per protocol for A-fib Continue Levophed to keep MAP above 65 Reduce IV fluid to KVO Once bed available patient will be going to transferred to [facility] cardiology service. Physical Exam Const: OTHER: GENERAL: Patient is alert, awake and oriented x3. HEART: Regularly irregular S1 and S2. No murmur, rub or gallop. LUNGS: Clear to auscultate bilaterally. CENTRAL NERVOUS SYSTEM: Grossly nonfocal. EXTREMITIES: Lower extremities with out edema bilaterally. Urinary Catheter Management: Gandara: Cath Placed During This Visit: yes Reason for Continuing Indwelling Catheter: Accurate Measurement of Urinary Output in Critically Ill Patients Urinary Catheter Date of Insertion: 04/11/25 Urinary Catheter Time of Insertion: 05:00 TS Data Studies Completed and Pending Pending at discharge Category Date Time Status ANALYTICAL STRATEGIST request for service Routine Exams 04/11/25 01:38 Ordered Complete Blood Count w/Auto AM LABS Lab 04/12/25 04:00 Ordered Comprehensive Metabolic Panel AM LABS Lab 04/12/25 04:00 Ordered Phosphorus AM LABS Lab 04/12/25 04:00 Ordered Platelet Count Q2D Lab 04/13/25 04:00 Ordered Platelet Count Q2D Lab 04/15/25 04:00 Ordered Troponin T (5th) Once Routine Lab 04/11/25 14:58 Received CV. echo complete* [id number] Routine Ultrasound 04/11/25 14:18 Ordered Completed Studies During Hospitalization Category Date Time Status XR chest 1V portable [id number] Stat Exams 04/11/25 01:10 Completed Laboratory Last Values WBC 10.15 10^3/uL (3.29-11.43) 04/11/25 06:32 Corrected WBC Cancelled 04/11/25 05:39 RBC 3.41 10^6/uL (3.85-5.65) L 04/11/25 06:32 Hgb 11.40 g/dL (11.27-16.99) 04/11/25 06:32 Hct 33.5 % (37-53) L 04/11/25 06:32 MCV 98.2 fl (82-101) 04/11/25 06:32 MCH 33.4 pg (27-33) H 04/11/25 06:32 MCHC 34.0 g/dL (30-55) 04/11/25 06:32 RDW 12.4 % (12.1-15.1) 04/11/25 06:32 Plt Count 181 10^3/cmm (157-399) 04/11/25 06:32 MPV 10.0 fL (7.4-10.4) 04/11/25 06:32 Gran % Cancelled 04/11/25 05:39 Neut % (Auto) 86.9 % 04/11/25 06:32 Lymph % (Auto) 6.8 % 04/11/25 06:32 Bowie % (Auto) 5.9 % 04/11/25 06:32 Eos % (Auto) 0.1 % 04/11/25 06:32 Baso % (Auto) 0.1 % 04/11/25 06:32 Neut # (Auto) 8.82 10^3/uL (1.8-7.7) H 04/11/25 06:32 Lymph # (Auto) 0.7 10^3/uL (0.8-4.8) L 04/11/25 06:32 Bowie # (Auto) 0.6 10^3/uL (0.2-0.9) 04/11/25 06:32 Eos # (Auto) 0.0 10^3/uL (0.0-0.8) 04/11/25 06:32 Baso # (Auto) 0.0 10^3/uL (0.0-0.1) 04/11/25 06:32 Absolute Gran (auto) Cancelled 04/11/25 05:39 Nucleated RBC % (auto) 0 % 04/11/25 06:32 Nucleated RBCs # 0.0 /100WBC 04/11/25 06:32 PT 12.40 SECONDS (12.1-14.9) 04/11/25 01:10 INR 0.86 (0.8-1.2) 04/11/25 01:10 APTT 25.9 SECONDS (23.9-36.7) 04/11/25 06:39 Sodium 137 mmol/L (136-145) 04/11/25 05:39 Potassium 4.5 mmol/L (3.5-5.1) 04/11/25 05:39 Chloride 103 mmol/L (98-107) 04/11/25 05:39 Carbon Dioxide 21 mmol/L (22-29) L 04/11/25 05:39 Anion Gap 17.5 (5-19) 04/11/25 05:39 BUN 14 mg/dL (8-23) 04/11/25 05:39 Creatinine 1.2 mg/dL (0.7-1.2) 04/11/25 05:39 GFR Calculation Not Reportable 04/11/25 05:39 Glucose 148 mg/dL (65-115) H 04/11/25 05:39 Calculated Osmolality 287 mOsm/kg (285-295) 04/11/25 05:39 Calcium 8.2 mg/dL (8.5-10.5) L 04/11/25 05:39 Phosphorus 3.5 mg/dL (2.5-4.5) 04/11/25 05:39 Magnesium 1.9 mg/dL (1.7-2.3) 04/11/25 05:39 Total Bilirubin 0.2 mg/dL (0.15-1.2) 04/11/25 05:39 AST 36 U/L (0-40) 04/11/25 05:39 ALT 22 U/L (0-41) 04/11/25 05:39 Alkaline Phosphatase 57 U/L (40-130) 04/11/25 05:39 Creatine Kinase 93 U/L (39-308) 04/11/25 01:10 Troponin T Baseline 30 ng/L (0-15) H 04/11/25 01:10 NT-Pro-B Natriuret Pep 883 pg/mL (0-450) H 04/11/25 01:10 Total Protein 6.1 g/dL (6.6-8.7) L 04/11/25 05:39 Albumin 3.8 g/dL (3.5-5.2) 04/11/25 05:39 Globulin 2.3 g/dL (1.3-4.6) 04/11/25 05:39 Radiology Impressions Chest X-Ray 04/11/25 01:10 IMPRESSION: No definite acute infiltrate or effusion. Recent Clincial Data Last Vital Signs Temp 97.6 F 04/11/25 05:30 Pulse 140 H 04/11/25 12:30 Resp 20 H 04/11/25 12:30 BP 113/75 04/11/25 11:30 Pulse Ox 97 04/11/25 12:30 O2 Del Method Nasal Cannula 04/11/25 05:37 O2 Flow Rate 4 04/11/25 05:37 Vital Signs Temp Pulse Resp BP Pulse Ox O2 Del Method O2 Flow Rate 04/11/25 12:30 140 H 20 H 97 04/11/25 12:00 137 H 13 97 04/11/25 11:30 138 H 15 113/75 97 04/11/25 11:00 139 H 11 L 106/76 91 04/11/25 10:30 140 H 16 116/74 91 04/11/25 10:00 141 H 14 115/80 89 L 04/11/25 09:30 144 H 17 118/80 91 04/11/25 09:15 141 H 14 99/69 92 04/11/25 09:00 141 H 14 91/69 92 04/11/25 08:45 135 H 13 96/78 90 04/11/25 08:30 141 H 14 115/75 89 L 04/11/25 08:15 135 H 14 99/78 90 04/11/25 08:00 138 H 11 L 105/65 92 04/11/25 07:45 135 H 21 H 109/65 90 04/11/25 07:30 134 H 14 104/68 90 04/11/25 07:15 134 H 15 103/65 90 04/11/25 07:00 133 H 11 L 105/67 89 L 04/11/25 06:45 133 H 12 79/65 89 L 04/11/25 06:30 132 H 13 99/68 91 04/11/25 06:15 132 H 95/71 92 04/11/25 06:00 131 H 11 L 99/63 90 04/11/25 06:00 128 H 04/11/25 05:45 130 H 11 L 92/65 89 L 04/11/25 05:37 92 Nasal Cannula 4 04/11/25 05:30 97.6 F 129 H 16 94/65 89 L 04/11/25 05:15 128 H 9 L 99/70 89 L 04/11/25 05:00 130 H 14 92/64 89 L 04/11/25 04:45 135 H 16 84/60 89 L 04/11/25 04:35 13 90 04/11/25 04:30 127 H 10 L 107/64 89 L 04/11/25 04:15 138 H 10 L 92/70 91 04/11/25 04:00 129 H 17 102/64 94 04/11/25 03:45 127 H 13 100/65 91 Intake & Output/Weight 04/09/25 04/10/25 04/11/25 04/12/25 06:59 06:59 06:59 06:59 Intake Total 199.333 / 199.333 780.854 / 780.854 Output Total 400 / 400 Balance -200.667 / -200.667 780.854 / 780.854 Weight 180 lb 12.465 oz Vitals Last Vital Signs Temp 97.6 F 04/11/25 05:30 Pulse 140 H 04/11/25 12:30 Resp 20 H 04/11/25 12:30 BP 113/75 04/11/25 11:30 Pulse Ox 97 04/11/25 12:30 O2 Del Method Nasal Cannula 04/11/25 05:37 O2 Flow Rate 4 04/11/25 05:37 TS Medications Medications Acetaminophen (Acetaminophen 325 Mg Tablet) 650 mg PO Q6H PRN PRN Reason: MILD PAIN Acetaminophen (Acetaminophen 325 Mg Tablet) 650 mg PO Q6H PRN PRN Reason: Mild/Mod Pain Or Temp >/= 101 Al Hydrox/Mg Hydrox/Simethicone (Jhgb-Gsv-Avnymffuk-Farnaz 30 Ml Udc) 30 ml PO Q15M PRN PRN Reason: INDIGESTION Alprazolam (Alprazolam 0.5 Mg Tablet) 0.25 mg PO TID PRN PRN Reason: ANXIETY Aspirin (Aspirin 81 Mg Ec Tablet) 81 mg PO DAILY [facility] Last Admin: 04/11/25 07:43 Dose: 81 mg Atropine Sulfate (Atropine 1 Mg/Ml Sdv 1 Ml) 0.5 mg IVP PRN PRN PRN Reason: Symptomatic bradycardia Clopidogrel Bisulfate (Clopidogrel 75 Mg Tablet) 75 mg PO DAILY [facility] Last Admin: 04/11/25 07:43 Dose: 75 mg Docusate Sodium (Docusate Sodium 100 Mg Capsule) 100 mg PO DAILY [facility] Last Admin: 04/11/25 10:44 Dose: 100 mg Heparin Sodium (Porcine) (Heparin 5,000 Unit/Ml Inj 1 Ml) 0 unit IVP PRN PRN; Protocol PRN Reason: Heparin Weight Based Protocol -Subsequent Bolus Amiodarone HCl/Dextrose (Nexterone) 360 mg in 200 mls @ 0 mls/hr IV .Q0M [facility]; Protocol Last Titration: 04/11/25 13:35 Dose: 1 mg/min, 33.33 mls/hr Nitroglycerin/Dextrose (Nitroglycerin Drip) 50 mg in 250 mls @ 0 mls/hr IV .Q0M [facility]; Protocol Norepinephrine Bitartrate (Levophed) 4 mg in 250 mls @ 0 mls/hr IV .Q0M [facility]; Protocol Last Titration: 04/11/25 03:13 Dose: 4 mcg/min, 15 mls/hr Heparin Sodium/Sodium Chloride (Heparin Drip) 25,000 unit in 500 mls @ 0 mls/hr IV CONT [facility]; Protocol Magnesium Hydroxide (Magnesium Hydroxide 30 Ml Udc) 30 ml PO DAILY PRN PRN Reason: CONSTIPATION Morphine Sulfate (Morphine 4 Mg/Ml Sdv 1 Ml) 4 mg IVP Q2H PRN PRN Reason: CHEST PAIN Last Admin: 04/11/25 04:35 Dose: 4 mg Naloxone HCl (Naloxone 0.4 Mg/Ml Sdv) 0.1 mg IVP Q2M PRN PRN Reason: RESPIRATORY RATE < 8/MIN Nitroglycerin (Nitroglycerin 0.4 Mg Sublingual Tablet) 0.4 mg SUBLINGUAL Q5M PRN PRN Reason: CHEST PAIN Ondansetron HCl (Ondansetron 2 Mg/Ml Sdv 2 Ml) 4 mg IVP Q4H PRN PRN Reason: vomiting, or N/V if npo Pantoprazole Sodium (Pantoprazole Dr 40 Mg Tablet) 40 mg PO DAILY [facility] Last Admin: 04/11/25 07:43 Dose: 40 mg Temazepam (Temazepam 15 Mg Capsule) 15 mg PO BEDTIME PRN PRN Reason: INSOMNIA Discontinued Medications Clopidogrel Bisulfate (Clopidogrel 300 Mg Tablet) 600 mg PO ONCE ONE Stop: 04/11/25 01:11 Last Admin: 04/11/25 01:22 Dose: 600 mg Digoxin (Digoxin 250 Mcg/Ml Inj 2 Ml) 250 mcg IVP NOW ONE Stop: 04/11/25 13:32 Last Admin: 04/11/25 14:00 Dose: 250 mcg Digoxin (Digoxin 250 Mcg/Ml Inj 2 Ml) 250 mcg IVP NOW ONE Stop: 04/11/25 15:31 Diphenhydramine HCl (Diphenhydramine 50 Mg/Ml Sdv 1ml) Confirm Administered Dose 50 mg .ROUTE .STK-MED ONE Stop: 04/11/25 02:04 Fentanyl (Fentanyl 50 Mcg/Ml Inj 2ml) Confirm Administered Dose 100 mcg .ROUTE .STK-MED ONE Stop: 04/11/25 01:42 Furosemide (Furosemide 10 Mg/Ml Sdv 4ml) 40 mg IVP ONCE ONE Stop: 04/11/25 05:32 Last Admin: 04/11/25 05:41 Dose: 40 mg Heparin Sodium (Porcine) (Heparin 5,000 Unit/Ml Inj 1 Ml) 4,000 unit IVP ONCE ONE Stop: 04/11/25 01:11 Last Admin: 04/11/25 01:20 Dose: 4,000 unit Heparin Sodium (Porcine) (Heparin 5,000 Unit/Ml Inj 1 Ml) Confirm Administered Dose 5,000 unit .ROUTE .STK-MED ONE Stop: 04/11/25 01:43 Heparin Sodium (Porcine) (Heparin 5,000 Unit/Ml Inj 1 Ml) 0 unit IVP ONCE ONE; Protocol Stop: 04/11/25 13:35 Last Admin: 04/11/25 14:06 Dose: Not Given Sodium Chloride (Sodium Chloride 0.9%) 1,000 mls @ 999 mls/hr IV .Q1H1M ONE Stop: 04/11/25 02:17 Last Admin: 04/11/25 01:22 Dose: 999 mls/hr Amiodarone HCl/Dextrose (Nexterone) Confirm Administered Dose 360 mg in 200 mls @ as directed .ROUTE .STK-MED ONE Stop: 04/11/25 01:19 Lidocaine HCl (Xylocaine) Confirm Administered Dose 20 mls @ as directed .ROUTE .[facility]-MED ONE Stop: 04/11/25 01:43 Sodium Chloride (Sodium Chloride 0.9%) Confirm Administered Dose 1,000 mls @ as directed .ROUTE .[facility]-MED ONE Stop: 04/11/25 01:43 Norepinephrine Bitartrate (Levophed) Confirm Administered Dose 4 mg in 250 mls @ as directed .ROUTE .[facility]-MED ONE Stop: 04/11/25 01:43 Sodium Chloride (Sodium Chloride 0.9%) 1,000 mls @ 100 mls/hr IV .Q10H [facility] Last Infusion: 04/11/25 05:34 Dose: 0 mls/hr Midazolam HCl (Midazolam 1 Mg/Ml Inj 2 Ml) Confirm Administered Dose 2 mg .ROUTE .[facility]-MED ONE Stop: 04/11/25 01:42 Morphine Sulfate (Morphine 4 Mg/Ml Sdv 1 Ml) 4 mg IVP Q5M PRN PRN Reason: CHEST PAIN Last Admin: 04/11/25 01:31 Dose: 4 mg Morphine Sulfate (Morphine 4 Mg/Ml Sdv 1 Ml) Confirm Administered Dose 4 mg .ROUTE .[facility]-MED ONE Stop: 04/11/25 01:28 Nitroglycerin (Nitroglycerin 5 Mg/Ml Sdv 10 Ml) Confirm Administered Dose 50 mg .ROUTE .[facility]-MED ONE Stop: 04/11/25 01:42 Ondansetron HCl (Ondansetron 2 Mg/Ml Sdv 2 Ml) 4 mg IVP ONCE ONE Stop: 04/11/25 01:11 Last Admin: 04/11/25 01:18 Dose: 4 mg Allergies No Known Allergies Allergy (Verified 04/11/25 01:17) Home Medications cholecalciferol (vitamin D3) 25 mcg (1,000 unit) capsule 1,000 unit PO QAM 07/16/21 [History Confirmed 04/11/25] magnesium 250 mg tablet 250 mg PO QPM 07/16/21 [History Confirmed 04/11/25] mecobalamin (vitamin B12) 1,000 mcg disintegrating tablet,sublingual 1,000 mcg sublingual QAM 07/16/21 [History Confirmed 04/11/25] fexofenadine 180 mg tablet (Ashly Allergy) 180 mg PO QAM 10/29/22 [History Confirmed 04/11/25] melatonin 5 mg capsule 5 mg PO BEDTIME 10/29/22 [History Confirmed 04/11/25] ferrous sulfate 325 mg (65 mg iron) tablet (FeroSul) 325 mg PO .AM MON, WED, Friday04/29/24 [History Confirmed 04/11/25] compressor, for nebulizer #1 ea 05/26/24 [Rx Confirmed 04/11/25] nebulizer accessories #1 ea 05/26/24 [Rx Confirmed 04/11/25] potassium chloride 10 mEq capsule,extended release 10 meq PO BID 11/04/24 [History Confirmed 04/11/25] amlodipine 5 mg tablet 5 mg PO BID 04/11/25 [History Confirmed 04/11/25] clopidogrel 75 mg tablet 75 mg PO QAM 04/11/25 [History Confirmed 04/11/25] duloxetine 20 mg capsule,delayed release 40 mg PO DAILY 04/11/25 [History Confirmed 04/11/25] esomeprazole magnesium 40 mg capsule,delayed release See Rx Instructions .Route .COMPLEX 04/11/25 [History Confirmed 04/11/25] finasteride 5 mg tablet 2.5 mg PO QPM 04/11/25 [History Confirmed 04/11/25] fluticasone propionate 50 mcg/actuation nasal spray,suspension 2 spray intranasal QAM 04/11/25 [History Confirmed 04/11/25] furosemide 20 mg tablet 10 mg PO QAM 04/11/25 [History Confirmed 04/11/25] isosorbide mononitrate 30 mg tablet,extended release 24 hr 30 mg PO BID 04/11/25 [History Confirmed 04/11/25] levothyroxine 50 mcg tablet 50 mcg PO QAM 04/11/25 [History Confirmed 04/11/25] losartan 50 mg tablet 50 mg PO QAM 04/11/25 [History Confirmed 04/11/25] montelukast 10 mg tablet 10 mg PO QAM 04/11/25 [History Confirmed 04/11/25] rosuvastatin 10 mg tablet 10 mg PO QPM 04/11/25 [History Confirmed 04/11/25] trazodone 150 mg tablet 150 mg PO BEDTIME 04/11/25 [History Confirmed 04/11/25] Discharge Plan Discharge Patient Disposition: Home Condition: Critical Prescriptions: No Action ferrous sulfate [FeroSul] 325 mg (65 mg iron) tablet 325 mg PO .AM FRI, FRI, FRIDAY potassium chloride 10 mEq capsule, extended release 10 meq PO BID (DME) nebulizer accessories Kit See Rx Instructions .Route Qty: 1 0RF Rx Instructions: As directed (DME) compressor, for nebulizer Device See Rx Instructions .Route Qty: 1 0RF Rx Instructions: As directed fexofenadine [Ashly Allergy] 180 mg tablet 180 mg PO QAM melatonin 5 mg capsule 5 mg PO BEDTIME magnesium 250 mg Tablet 250 mg PO QPM cholecalciferol (vitamin D3) 25 mcg (1,000 unit) capsule 1,000 unit PO QAM mecobalamin (vitamin B12) 1,000 mcg tablet,disintegrating 1,000 mcg SUBLINGUAL QAM esomeprazole magnesium 40 mg capsule,delayed release(DR/EC) See Rx Instructions .ROUTE .COMPLEX Rx Instructions: TAKE ONE CAPSULE BY MOUTH 30 TO 60 minutes before morning meal. duloxetine 20 mg capsule,delayed release(DR/EC) 40 mg PO DAILY losartan 50 mg tablet 50 mg PO QAM isosorbide mononitrate 30 mg tablet extended release 24 hr 30 mg PO BID clopidogrel 75 mg tablet 75 mg PO QAM amlodipine 5 mg tablet 5 mg PO BID levothyroxine 50 mcg tablet 50 mcg PO QAM trazodone 150 mg tablet 150 mg PO BEDTIME montelukast 10 mg tablet 10 mg PO QAM furosemide 20 mg tablet 10 mg PO QAM fluticasone propionate 50 mcg/actuation spray,suspension 2 spray intranasal QAM finasteride 5 mg tablet 2.5 mg PO QPM rosuvastatin 10 mg tablet 10 mg PO QPM Referrals: Rom Crook MD [Primary Care Provider, Internal Medicine] Patient Instructions: Opioid Safety, Patient Portal & Karla Instructions Transfer Attestations Time Spent in Transfer Care: greater than 30 min Status at Transfer: Cognitive status at transfer: cognitively intact; Behavioral status at transfer: cooperative; Quality Metrics Clinical Quality Measures [ Acute Myocardial Infaction { Clinical Trial Participant: No; Contraindication to aspirin: None; Aspirin prescribed; Contraindication to statin: Drug intolerance;}. No reported AMI, CVA or VTE this stay] Coding Level of Care Code Acute Code for [facility] Fwd Diagnoses Chest pain R07.9 Wide-complex tachycardia R00.0 Shock R57.[address] elevation myocardial infarction (STEMI) I21.3
--- NOTE | 2025-04-11 15:36 | P.MISC_ITS ---
Miscellaneous Note Purpose of Documentation: medicine update Note: Patient presented with abnormal EKG and severe angina. He was taken urgently to [facility] due to abnormal EKG. Because of this procedure patient was admitted under Dr. Lopez. The overnight doctor did a consultation on this patient. I was asked to transfer the patient to [facility] due to patient request. I called single line referral and placed the referral. Patient has not been seen at [facility]. I have been waiting a callback I discussed with patient. He complained of chest pain and abdominal pain. He has unstable angina and likely constipation. He is still at bedrest. He states his family request transfer to [facility] instead of [facility] where he has received his other health care. In the meantime I notified Dr. Lopez and he says he to placed a referral and sent a detailed message to the heavy truck mechanic on-call. At this time Dr. Lopez states he will move forward with the transfer process.
[2025-04-11 15:38] LABS: Troponin T (5th) Once 1024 ng/L (0-15)
[2025-04-11] MEDS: heparin drip 25,000 UNIT/500 ML PREMIX 23 UNIT IV (15:42)
--- NOTE | 2025-04-11 20:31 | PC.NURSE ---
Addendum entered by JORGE Gonzalez 04/11/25 21:22: Patient left via [facility] truck. [facility] sent with heparin that was running as 23ml/hour and Amiodarone running at 1mg/min. Levophed and pump sent with EMS as well since it had only been stopped for 1 hour prior to patients transfer. and daughter at bedside and confirmed patient had all personal belongings. Hospital, provider, and room information sent with patient. Notified EMS that patients oxygen requirements were new and they put him on their own nasal canula. Patient alert and oriented at time of transfer. [facility] called once patient left the unit at 2103. Original Note: Report called to Prasanna Ignacio RN at 2024 at phone number [phone] at [facility] CVICU going to room 3E/3310. All questions addressed and answered at time of report.
== END 2025-04-11 21:04 | disposition short-term general hospital (02) | DRG 280 ==
LOC: ER 01:10 → CCL 01:16 → ICU 03:00
PROVIDERS: Internal Medicine; Admitting Provider Internal Medicine Cardiovascular Disease; Emergency Provider Emergency Medicine; PCP Internal Medicine; Visit Provider Internal Medicine Cardiovascular Disease
PROC: B2111ZZ Fluoroscopy of Multiple Coronary Arteries using Low Osmolar Contrast (ICD-10-PCS; principal; 2025-04-11 02:00)
DX: I25.119 Atherosclerotic heart disease of native coronary artery with unspecified angina pectoris (principal); R57.0 Cardiogenic shock; I21.A1 Myocardial infarction type 2; I25.810 Atherosclerosis of coronary artery bypass graft(s) without angina pectoris; I13.0 Hypertensive heart and chronic kidney disease with heart failure and stage 1 through stage 4 chronic kidney disease, or unspecified chronic kidney disease; N18.4 Chronic kidney disease, stage 4 (severe); I50.20 Unspecified systolic (congestive) heart failure; I48.92 Unspecified atrial flutter; I25.2 Old myocardial infarction; K59.00 Constipation, unspecified; R00.0 Tachycardia, unspecified; I44.7 Left bundle-branch block, unspecified; I95.9 Hypotension, unspecified; Z66 Do not resuscitate; G60.9 Hereditary and idiopathic neuropathy, unspecified; N40.1 Benign prostatic hyperplasia with lower urinary tract symptoms; I73.00 Raynaud's syndrome without gangrene; K21.9 Gastro-esophageal reflux disease without esophagitis; E78.2 Mixed hyperlipidemia; F41.9 Anxiety disorder, unspecified; F32.A Depression, unspecified; G47.33 Obstructive sleep apnea (adult) (pediatric); N52.9 Male erectile dysfunction, unspecified; J44.9 Chronic obstructive pulmonary disease, unspecified; D63.1 Anemia in chronic kidney disease; I77.9 Disorder of arteries and arterioles, unspecified; Z79.891 Long term (current) use of opiate analgesic; Z79.02 Long term (current) use of antithrombotics/antiplatelets; Z87.891 Personal history of nicotine dependence; Z95.1 Presence of aortocoronary bypass graft; Z95.5 Presence of coronary angioplasty implant and graft
CPT/HCPCS: 36415; 51702; 71045; 80053; 82550; 83735; 83880; 84100; 84484; 85025; 85610; 85730; 93005; 93459; 96365; 96366; 96367; 96375; 99152; 99153; 99291; A4222; C1769; C1887; C1894; J0283; J1160; J1200; J1644; J1938; J2250; J2270; J2405; J3010; J3490; J7030; J9999; Q9967